=== PATIENT | female | born 1975 | race Caucasian/White ===

== ENCOUNTER 2023-12-16 23:04 | Emergency (ER) | payer BC, SELFPAY ==
[2023-12-16 23:15] VITALS: BP 149/89; PULSE 102; TEMP 37.3; O2SAT 100; BMI 29.5
--- NOTE | 2023-12-16 23:40 | ED_ITS ---
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 States once she starts vomiting it is hard to stop. No diarrhea. only has pain when vomiting. Also has cough product donny of yellow phlegm. Not short of breath. no fever Related Data Allergies Allergy/AdvReac Type Severity Reaction Status Date / Time ciprofloxacin [From Cipro] Allergy Hives Verified 12/16/23 23:19 Review of Systems ROS Status of ROS 10 or more systems reviewed and unremark able except as noted in history and below Exam Constitutional Vital Signs, click to edit/add: Last Vital Signs Temp 99.2 F 12/16/23 23:15 Pulse 90 12/17/23 02:36 Resp 18 12/17/23 02:36 BP 157/84 H 12/17/23 02:36 Pulse Ox 98 12/17/23 02:36 O2 Del Method Room Air 12/17/23 02:36 Common normals: no apparent distress, average body habitus, oriented x3, no limitations, healthy appearing, alert and well nourished [facility] Common normals: normocephalic and head/scalp atraumatic Respiratory Common normals: normal respiratory effort, no retractions, no use of accessory muscles and clear to auscultation bilaterally Cardio Rate: tachycardic GI Common normals: Normal to inspection, nondistended, normoactive bowel sounds present, soft to palpation and non-tender Extremity Common normals: normal to inspection and full ROM Neuro Common normals: oriented x3, CN's II-XII intact bilaterally, moves all extremities and no focal motor deficits Psych Appearance: grossly normal Course Vital Signs Vital signs: Vital Signs Temperature 99.2 F 12/16/23 23:15 Pulse Rate 102 H 12/16/23 23:15 Respiratory Rate 18 12/16/23 23:15 Blood Pressure 149/89 H 12/16/23 23:15 Pulse Oximetry 100 12/16/23 23:15 Oxygen Delivery Method Room Air 12/16/23 23:15 Temperature 99.2 F 12/16/23 23:15 Pulse Rate 90 12/17/23 02:36 Respiratory Rate 18 12/17/23 02:36 Blood Pressure 157/84 H 12/17/23 02:36 Pulse Oximetry 98 12/17/23 02:36 Oxygen Delivery Method Room Air 12/17/23 02:36 MDM - Nausea/Vomiting/Diarrhea MDM Narrative Medical decision making narrative: patient presents with recurrent vomiting. patient hydrated with NS and vomiting controlled. UA infected. Patient given dose of Rocephin and discharged home in improved condition with a prescription of Keflex Lab Data Labs: Lab Results 12/16/23 12/17/23 Range/Units 23:41 00:04 WBC 11.3 H (4.0-11.0) 10^3/uL RBC 5.20 (4.20-5.40) 10^6/uL Hgb 14.3 (12.0-16.0) g/dL Hct 42.9 (36.0-48.0) % MCV 82.5 (81.0-99.0) fL MCH 27.5 (26.7-34.0) pg MCHC 33.3 (29.9-35.2) g/dL RDW 12.8 (11.0-15.0) % Plt Count 260 (150-450) 10^3/uL MPV 10.2 (9.5-13.5) fL Seg Neuts % (Manual) 78.0 Lymphocytes % (Manual) 12.0 L (20.5-60.0) % Monocytes % (Manual) 10.0 (1.7-12.0) % Eosinophils % (Manual) 0.0 L (0.9-7.0) % Basophils % (Manual) 0.0 L (0.2-2.0) % Neutrophils # (Manual) 8.81 H (1.4-6.5) 10^3/uL Lymphocytes # (Manual) 1.35 (1.20-3.80) 10^3/uL Monocytes # (Manual) 1.13 H (0.30-0.80) 10^3/uL Eosinophils # (Manual) 0.00 (0.00-0.70) 10^3/uL Basophils # (Manual) 0.00 (0.00-0.10) 10^3/uL Sodium 136 (136-145) mmol/L Potassium 3.3 L (3.5-5.1) mmol/L Chloride 99 (98-107) mmol/L Carbon Dioxide 23.6 (21.0-32.0) mmol/L Anion Gap 16.7 BUN 19.0 H (7.0-18.0) mg/dL Creatinine 1.05 H (0.55-1.02) mg/dL Est GFR ( Amer) >60 (>=60) Est GFR (Non-Af Amer) 56 L (>=60) BUN/Creatinine Ratio 18.1 Glucose 166 H (74-106) mg/dL Lactate 1.3 (0.4-2.0) mmol/L Calcium 9.5 (8.5-10.1) mg/dL Total Bilirubin 0.7 (0.2-1.0) mg/dL AST 14 L (15-37) U/L ALT 25 (14-59) U/L Alkaline Phosphatase 85 (46-116) U/L Troponin I High Sens 16.9 (4.0-51.3) pg/mL Total Protein 7.7 (6.4-8.2) g/dL Albumin 3.9 (3.4-5.0) g/dL Globulin 3.8 g/dL Albumin/Globulin Ratio 1.0 Lipase 20.0 (16.0-77.0) U/L Urine Color Yellow (YELLOW) Urine Clarity Clear (CLEAR) Urine pH 5.5 (5.0-9.0) Ur Specific [place] 1.025 (1.005-1.025) Urine Protein 30 A (NEG/TRACE) mg/dL Urine Glucose (UA) >=1000 A (NEGATIVE) mg/dL Urine Ketones >=80 A (NEGATIVE) mg/dL Urine Occult Blood Small A (NEGATIVE) Urine Nitrite Negative (NEGATIVE) Urine Bilirubin Small A (NEGATIVE) Urine Urobilinogen 0.2 (0.2-1.0) EU/dL Ur Leukocyte Esterase Negative (NEGATIVE) Urine RBC 5-10 A (0-2) #/HPF Urine WBC 5-10 A (NONE SEEN) #/HPF Ur Squamous Epith Cells Few A (NONE/RARE) #/LPF Ur Transition Epith Cell Rare A (NONE SEEN) #/LPF Urine Crystals Seen A (None Seen) #/HPF Amorphous Sediment Moderate Urine Bacteria Large A (NONE SEEN) #/HPF Urine Casts Seen A (NONE SEEN) #/LPF Coarse Granular Casts Rare Urine Mucus None seen (NONE SEEN) Ur Culture Indicated? Yes Discharge Plan Discharge Stand Alone Forms: Portal Instructions Chief Complaint: Nausea/Vomiting/Diarrhea Clinical Impression: Vomiting, Urinary tract infection Patient Disposition: Home, Self-Care Print Language: Bruneian Instructions: Urinary Tract Infection in Women (DC), Acute Nausea and Vomiting (ED) Additional Instructions: follow up with your family doctor next week Referrals: Physician,Non-Staff, MD [Primary Care Provider] - 1 week Discharge Date/Time: 12/17/23 02:39
--- NOTE | 2023-12-16 23:42 | XR_ITS ---
The [address] [address] Patient Name: NICOLAS AWAD MRN: [id number] date: 1975 Sex: F Assigned Patient Location: ER Current Patient Location: ER Accession/Order Number: [id number] Exam Date: 12/16/2023 23:59 Report Date: 12/17/2023 01:43 At the request of: AUTUMN HINKLE Procedure: XR abdomen min 2V EXAM: XR abdomen min 2V HISTORY: vomiting, nausea, and abdominal pain. Additional history of cough. COMPARISON: Chest x-ray 12/17/2023. Otherwise, no comparison abdominal imaging available at the time of dictation. TECHNIQUE: 2 views of abdominal x-ray, frontal supine and erect images (3 images). FINDINGS: No dilated small bowel silhouette or air-fluid levels. No discrete large free air by radiograph imaging. Moderate amount of stool and gas within the transverse colon and rectosigmoid. No suspicious calcifications or acute bony abnormality. XR/XR abdomen min 2V IMPRESSION: Moderate amount of stool and gas within the colon. Otherwise, nonobstructive small bowel bowel gas pattern by radiograph. Electronically authenticated by: RONIT LAN Date: 12/17/2023 01:43
--- NOTE | 2023-12-16 23:42 | XR_ITS ---
The [address] [address] Patient Name: NICOLAS AWAD MRN: [id number] date: 1975 Sex: F Assigned Patient Location: ER Current Patient Location: ER Accession/Order Number: [id number] Exam Date: 12/16/2023 23:59 Report Date: 12/17/2023 01:30 At the request of: AUTUMN HINKLE Procedure: XR chest 1V EXAM: XR chest 1V HISTORY: cough COMPARISON: No comparison chest imaging available at the time of the dictation. TECHNIQUE: Single frontal view chest x-ray FINDINGS: No lung consolidation, large pleural effusion, pneumothorax, or acute bony abnormality. Cardiac size is unremarkable. XR/XR chest 1V IMPRESSION: No radiographic evidence for acute chest abnormality. Electronically authenticated by: RONIT LAN Date: 12/17/2023 01:30
[2023-12-16 23:48] LABS: Hematocrit 42.9 % (36.0-48.0); Hemoglobin 14.3 g/dL (12.0-16.0); Mean Corpuscular HGB Conc 33.3 g/dL (29.9-35.2); Mean Corpuscular Hemoglobin 27.5 pg (26.7-34.0); Mean Corpuscular Volume 82.5 fL (81.0-99.0); Mean Platelet Volume 10.2 fL (9.5-13.5); Platelet Count 260 10^3/uL (150-450); Red Cell Distribution Width 12.8 % (11.0-15.0); White Blood Count 11.3 10^3/uL (4.0-11.0)
[2023-12-16] MEDS: 0.9 % SODIUM CHLORIDE 1,000 ML 999 ML IV (23:57)
[2023-12-16] MEDS: METOCLOPRAMIDE HCL 10 MG/2 ML VIAL IVP (23:58)
[2023-12-16] MEDS: DIPHENHYDRAMINE HCL 50 MG/ML VIAL IV (23:58)
[2023-12-17 00:10] LABS: Lymphocytes Absolute Manual 1.35 10^3/uL (1.20-3.80); Monocytes Absolute Manual 1.13 10^3/uL (0.30-0.80); Segmented Neut Absolute Manual 8.81 10^3/uL (1.4-6.5)
[2023-12-17 00:11] LABS: Lactate/Lactic Acid 1.3 mmol/L (0.4-2.0)
[2023-12-17 00:17] LABS: Alanine Aminotransferase 25 U/L (14-59); Albumin Level 3.9 g/dL (3.4-5.0); Alkaline Phosphatase 85 U/L (46-116); Anion Gap 16.7; Aspartate Amino Transferase 14 U/L (15-37); BUN Creatinine Ratio 18.1; Bilirubin Total 0.7 mg/dL (0.2-1.0); Calcium 9.5 mg/dL (8.5-10.1); Carbon Dioxide 23.6 mmol/L (21.0-32.0); Chloride 99 mmol/L (98-107); Estimated GFR (African America >60 (>=60); Estimated GFR (Non-African Ame 56 (>=60); Globulin 3.8 g/dL; Glucose 166 mg/dL (74-106); Potassium 3.3 mmol/L (3.5-5.1); Sodium 136 mmol/L (136-145); Total Protein 7.7 g/dL (6.4-8.2); Troponin I High Sensitivity 16.9 pg/mL (4.0-51.3)
[2023-12-17 00:17] LABS: Bilirubin Urine SMALL (NEGATIVE); Blood Urine SMALL (NEGATIVE); Clarity Urine CLEAR (CLEAR); Color Urine YELLOW (YELLOW); Glucose Urine UA >=1000 mg/dL (NEGATIVE); Ketones Urine >=80 mg/dL (NEGATIVE); Leukocyte Esterase Urine NEGATIVE (NEGATIVE); Nitrite Urine NEGATIVE (NEGATIVE); Protein Urine 30 mg/dL (NEG/TRACE); Specific Gravity Urine 1.025 (1.005-1.025); Urobilinogen Urine 0.2 EU/dL (0.2-1.0); pH Urine 5.5 (5.0-9.0)
[2023-12-17 00:20] LABS: Urine Microscopic Indicated YES
[2023-12-17 00:23] LABS: Amorphous Sediment Urine MODERATE; Bacteria Urine LARGE #/HPF (NONE SEEN); Cast Seen? SEEN #/LPF (NONE SEEN); Coarse Granular Casts Urine RARE; Crystals Seen? Seen #/HPF (None Seen); Mucus Urine NONE SEEN (NONE SEEN); Squamous Epithelial Cell Urine FEW #/LPF (NONE/RARE); Transitional Epi Cells Urine RARE #/LPF (NONE SEEN); Urine Culture Indicated YES
[2023-12-17 01:25] VITALS: BP 150/72; PULSE 98; O2SAT 100
[2023-12-17] MEDS: CEFTRIAXONE 1,000 MG in 0.9 % SODIUM CHLORIDE 50 ML 100 MG IV (01:48)
[2023-12-17] MEDS: 0.9 % SODIUM CHLORIDE 1,000 ML 999 ML IV (01:48)
[2023-12-17 02:36] VITALS: BP 157/84; PULSE 90; O2SAT 98
== END 2023-12-17 02:39 | disposition home or self-care (01) ==
PROVIDERS: Emergency Provider Internal Medicine
DX: N39.0 Urinary tract infection, site not specified (principal); R11.10 Vomiting, unspecified; U09.9 Post COVID-19 condition, unspecified; K31.84 Gastroparesis
CPT/HCPCS: 36415; 71045; 74019; 80053; 81001; 83605; 83690; 84484; 85007; 85027; 87086; 87150; 87186; 96361; 96365; 96375; 99284; J0696; J1200; J2765

== ENCOUNTER 2024-06-23 10:24 | Emergency (ER) | payer OTHER, SELFPAY ==
[2024-06-23 10:29] VITALS: BP 142/86; PULSE 88; TEMP 36.7; O2SAT 97; BMI 31.0
--- NOTE | 2024-06-23 10:36 | XR_ITS ---
The [address] [address] Patient Name: NICOLAS AWAD MRN: [id number] date: 1975 Sex: F Assigned Patient Location: ER Current Patient Location: ED.MAIN Accession/Order Number: [id number] Exam Date: 06/23/2024 10:42 Report Date: 06/23/2024 11:48 At the request of: ANDREW SANTA Procedure: XR chest 2V EXAM: CHEST 2 VIEWS HISTORY: cough TECHNIQUE: PA and lateral views chest. COMPARISON: 12/16/2023 FINDINGS: The lungs are clear. There is no focal lung consolidation, pleural effusion or pneumothorax. Pulmonary vasculature is within normal limits. The cardiomediastinal silhouette is normal. XR/XR chest 2V IMPRESSION: 1. Clear lungs without acute cardiopulmonary disease. Recommend followup imaging if symptoms worsen or persist. Electronically authenticated by: TRACIE GIBSON Date: 06/23/2024 11:48
--- NOTE | 2024-06-23 12:38 | ED.GENADUL1 ---
HPI HPI - General Adult General Chief complaint: Upper Respiratory Infection Stated complaint: VOMITING, LIGHTHEADED, COUGH Time Seen by Provider: 06/23/24 12:10 Source: patient Mode of arrival: walk-in History of Present Illness HPI narrative: Patient is an 48-year-old female who is presenting to the ER today with symptoms of bronchitis since Tuesday. Patient has sinus congestion, bronchitis, laryngitis, no nausea, vomiting, diarrhea. Patient has been sick since Tuesday, she has been taking all the uvfp-tfh-quecwbi products appropriately. She is using antihistamines, states that she cannot use Flonase secondary to history of ulcers in her nose from using Flonase. Patient is needing cough medications. Patient using inhalers. Patient is also taken Tylenol ibuprofen. She is also using Mucinex. Patient is eating all the medications that she should be tvlq-sxm-vohvgbv to help with her symptoms. Patient had a near syncopal episode in the shower today and patient still having her symptoms so patient's was concerned and brought patient into the ER for evaluation. Patient states she would not be here without her wanting her to be seen evaluated. Patient is diabetic. Patient is taking insulin injections along with 1 oral tablets. No recent traveling or trauma. No other sick contacts. All systems are negative except as noted/marked. All systems reviewed and otherwise negative. Nurses note and vital signs reviewed and patient is not hypoxic. General: The patient appears well and in no apparent distress. Patient is resting comfortably on cart. Patient is not toxic, lethargic, or listless. In listening apparent Skin: Warm, dry, no pallor noted. There is no rash noted. No petechiae, purpura. Head: Normocephalic, atraumatic Eye: Normal conjunctiva, no drainage, EOMI. PERRL Ears, Nose, Mouth, and Throat: oral mucosa is moist. Nares patent. Mouth without vesicles. Cardiovascular: Regular Rate and Rhythm, no murmur, gallop, rub Respiratory: Patient is in no distress, no accessory muscle use, lungs are clear to auscultation, no wheezing, rales or rhonchi Back: non-tender, no CVA tenderness bilaterally to percussion. No CT LS midline pain GI: no tenderness to palpation, no masses appreciated. No rebound, guarding, or rigidity noted. No distention Musculoskeletal: Patient has full range of motion of all of the extremities, no motor, sensory, or focal neurological deficits Neurological: A&O x4, normal speech Psychiatric: Cooperative Related Data Previous Rx's ?Medication ?Instructions ?Recorded prednisone 50 mg tablet 50 mg PO DAILY 2 days #2 tabs 06/23/24 Allergies Allergy/AdvReac Type Severity Reaction Status Date / Time ciprofloxacin (From Cipro) Allergy Hives Verified 12/16/23 23:19 Opioid HPI Opioid Management Most Recent Opioid Data: No Data to Display PFSH PFSH Social History Little interest or pleasure in doing things: not at all Feeling down, depressed, or hopeless: not at all Exam Constitutional Vital Signs, click to edit/add: Last Vital Signs Temp 98.1 F 06/23/24 10:29 Pulse 88 06/23/24 10:29 Resp 16 06/23/24 10:29 BP 142/86 H 06/23/24 10:29 Pulse Ox 97 06/23/24 10:29 O2 Del Method Room Air 06/23/24 10:29 Course Vital Signs Vital signs: Vital Signs Temperature 98.1 F 06/23/24 10:29 Pulse Rate 88 06/23/24 10:29 Respiratory Rate 16 06/23/24 10:29 Blood Pressure 142/86 H 06/23/24 10:29 Pulse Oximetry 97 06/23/24 10:29 Oxygen Delivery Method Room Air 06/23/24 10:29 Temperature 98.1 F 06/23/24 10:29 Pulse Rate 88 06/23/24 10:29 Respiratory Rate 16 06/23/24 10:29 Blood Pressure 142/86 H 06/23/24 10:29 Pulse Oximetry 97 06/23/24 10:29 Oxygen Delivery Method Room Air 06/23/24 10:29 Medical Decision Making MDM Narrative Medical decision making narrative: Patient is taking all the sflr-xrw-hfxtwjd medications appropriately and aggressively which she should be. Patient is aware that prednisone will cause her sugars to be slightly elevated for the next week or 2. Patient is agreement to take a steroid tablet now, and. Prescribed 2 more steroid tablets only. Patient will continue taking all of her symptomatic treatment. Education on the appropriate use of antibiotics was discussed. Patient chest x-ray is clear, no infiltrate effusion. Education on treating laryngitis and symptoms at home. Patient has been increasing clear liquids at home and cold liquids. No questions at discharge patient will continue symptomatic treatment, follow-up with PCP next week if no improvement for possible antibiotic next or Tuesday if she is continuing to have her symptoms. No antibiotic indicated at this time, patient agrees. Discharge Plan Discharge Chief Complaint: Upper Respiratory Infection Clinical Impression: Bronchitis, Sinusitis, Laryngitis Patient Disposition: Home, Self-Care Time of Disposition Decision: 12:36 Condition: Fair Prescriptions / Home Meds: New prednisone 50 mg tablet 50 mg PO DAILY 2 Days Qty: 2 0RF Rx Instructions: Take your next dose 06/24 Print Language: Jordanian Instructions: Sinusitis (ED), How to Use a Metered-Dose Inhaler (ED), Acute Bronchitis (ED), How Your Lungs Work (ED) Additional Instructions: Take your next dose of prednisone tomorrow. Your sugars will elevate somewhat after taking prednisone as discussed at bedside. Continue taking all your tlwe-jwb-dscszif medications as discussed and continue aggressive treatment at home. InCrease fluids at home, Gatorade, Powerade, or water. Alternate using DayQuil, NyQuil, and Flonase. Add Mucinex as well as needed. Alternate Tylenol and Motrin every 4 hours to help with fever control, body aches or joint pain. Use atww-jnw-gwkphug vitamin C, vitamin D3, and zinc to help fight infection and help with her immune system. Referrals: RAINE CHAN [Primary Care Provider] - 1 week Discharge Date/Time: 06/23/24 12:56
[2024-06-23] MEDS: PREDNISONE 20 MG TABLET 40 MG PO (12:44)
== END 2024-06-23 12:56 | disposition home or self-care (01) ==
PROVIDERS: Emergency Provider Emergency Medicine; PCP Internal Medicine
DX: J40 Bronchitis, not specified as acute or chronic (principal); J04.0 Acute laryngitis; J32.9 Chronic sinusitis, unspecified; E11.9 Type 2 diabetes mellitus without complications; Z79.4 Long term (current) use of insulin; Z79.84 Long term (current) use of oral hypoglycemic drugs
CPT/HCPCS: 71046; 99283; J7512

== ENCOUNTER 2025-02-10 18:04 | Emergency (ER) | payer OTHER, SELFPAY ==
[2025-02-10 18:07] VITALS: BP 183/92; PULSE 102; TEMP 36.7; O2SAT 100; BMI 32.2
--- OUTSIDE RECORDS SUMMARY | 2025-02-10 18:10 | XMS_ITS | Encounter Summary ---
Author Organization [facility] Address [address] [place] [address] Care Team Providers Care Surface Grinding Machine Hand Name Role Phone Yodit Garcia DO Primary Care Provider Yodit Garcia DO Unavailable [phone] Encounter Details Date Type Department Care Team ([facility] st Contact Info) Description 04/12/2023 [facility] [address] [facility] [address] [place] [phone] Yodit Garcia, DO [address] [facility] [address] [place] [address] Social History Tobacco Use Types Packs/Day Years Used Date Smoking Tobacco: Former Cigarettes Q uit: 2019 Smokeless Tobacco: Never Alcohol Use Standard Drinks/Week Comments Yes 0 (1 standard drink = 0.6 oz pure alcohol) 1-2 drinks;monthly or less; caffeine: yes, coffee, soda AUDIT-C Answer Date Recorded Q1: How often do you have a drink containing alc ohol? Monthly or less 12/15/2022 Q2: How many drinks containi ng alcohol do you have on a typical day when you are drinking? 1 or 2 12/15/2022 Q3: How often do you have si x or more drinks on one occasion? Never 12/15/2022 PHQ-2 Answer Date Recorded Patient Health Questionnaire-2 Score 0 12/15/2022 Exercise Vital Sign Answer Date Recorde d On average, how many days pe r week do you engage in moderate to strenuous exercise (like a brisk walk)? 5 days 12/15/2022 On average, how many minutes do you engage in exercise at this level? 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 Not on file Not on file Not on file documented as of this encounter Plan of Treatment Upcoming Encounters Date Type Department Care Team (Late st Contact Info) Description 03/07/2025 3:30 PM EDT Office Visit [facility] [place] [facility] [address] [place] [phone] Yodit Garcia DO [address] [place] [address] documented as of this encounter Visit Diagnoses Not on filedocumented in this encounter Care Teams Surface Grinding Machine Hand Relationship Specialty Start Date End Date Yodit Garcia DO [address] [place] [address] PCP - General Internal Medicine 12/15/22 Yodit Gracia DO [address] [place] [address] PCP - [place] [employer] 05/27/23 documented as of this encounter
--- OUTSIDE RECORDS SUMMARY | 2025-02-10 18:10 | XMS_ITS | Clinical Summary ---
Author Organization [facility] Address [address] [place] [address] Care Team Providers Care Converting Supervisor Name Role Phone Unavailable Primary Care Provider Unavailabl e Allergies Active Allergy Reactions Criticality Noted Date Comments Codeine Hives,Swelling,Shortness of Breath 1 07/15/2008 Medications metformin hcl(GLUCOPHAGE 1,000 MG TAB)Indications :Diabetes (HCC) take one bid - needs to come in w/n the month- last visit 06/04 60 3 09/05/19 10 Active lisinopril(ZEST RIL 5 MG TAB)Indications :Diabetes (HCC) Take one(1) tablet daily. 30 3 09/05/19 10 Active insulin glargine,hum.re c.anlog(LANTUS 100 UNIT/ML SUBQ CARTRIDGE)Indic ations:Diabetes (HCC) take 6 units q pm 1 0 09/05/19 10 Active INSULIN ASPART 100 UNIT/ML SUB-QIndication s:Diabetes (HCC) take 6 units with each meal 1 0 09/05/19 10 Active ALBUTEROL SULFATE HFA 90 MCG/ACTUATION AEROSOL INHALER 2 puffs qid prn 1 3 07/31/19 10 Active fluconazole(DIF LUCAN 150 MG TAB)Indications :Yeast infection involving the vagina and surrounding area take now 1 1 05/15/20 09 Active EPINEPHrine (EPIPEN 2-ANDRY) 0.3 mg/0.3 mL auto-injector Inject 0.3 mL intramuscularly as needed. 1 Each 06/24/20 19 Active Active Problems Problem Noted Date Diagnosed Date Menorrhagia, premenopausal Diabetes Family History Medical History Relation Comments Asthma Brother 1 Arthritis Brother 2 Headache Brother 3 Hypertension Brother 4 Arthritis Father Hypertension Father Osteoporosis Father Cancer Maternal Grandfather Diabetes Maternal Grandfather Stroke Maternal Grandfather Alcohol/Drug Maternal Grandmother Headache Maternal Grandmother Alcohol/Drug Mother Arthritis Mother Headache Mother Heart Mother Alcohol/Drug Paternal Grandmother Thyroid Paternal Grandmother Relation Status Comments Brother 1 Brother 2 Brother 3 Brother 4 Father Maternal Grandfather Maternal Grandmother Mother Paternal Grandfather Paternal Grandmother Social History Tobacco Use Types Packs/Day Years Used Date Smoking Tobacco: Every Day Cigarettes 0.5 10 Alcohol Use Standard Drinks/Week Comments Not Asked 0 (1 standard drink = 0.6 oz pur e alcohol) PHQ-2 Answer Date Recorded PHQ-2 Score 0 06/24/2019 Comments No Sex and Gender Information Value Date Recorded Sex Assigned at Not on file Legal Sex Female 9:51 AM EST Gender Identity Not on file Sexual Orientation Not on file Last Filed Vital Signs Vital Sign Reading Time Taken Comments Blood Pressure 133/78 06/24/2019 7:30 PM EST Pulse 86 06/24/2019 7:30 PM EST Temperature 37 C (98.6 F) 09/04/2009 10:11 AM EST Respiratory Rate 18 06/24/2019 7:30 PM EST Oxygen Saturation 98% 06/24/2019 7:30 PM EST Inhaled Oxygen Concentration - - Weight 89.4 kg (197 lb) 06/24/2019 4:45 PM EST Height 175.3 cm (5' 9 ) 06/24/2019 4:45 PM EST Body Mass Index 29.09 06/24/2019 4:45 PM EST Plan of Treatment Health Maintenance Due Date Last Done Comments Anxiety Screening 09/08/1993 Depression Screening 09/08/1993 HIV Screening 09/08/1993 Hepatitis C Screening 09/08/1993 Hepatitis B Vaccine (1 of 3 - 19+ 3-dose series) 09/08/1994 Cervical Cancer Screening 09/08/1996 Mammogram Screening 2015 DTaP,Tdap,Td Vaccine (2 - Td or Tdap) 09/10/[address] Colonography 09/08/2020 Cologuard (FIT-DNA) 09/08/2020 Colonoscopy 09/08/2020 Colorectal Cancer Screening 09/08/2020 Fecal Occult Blood 09/08/2020 Sigmoidoscopy 09/08/2020 Diabetes Screening 10/17/2021 10/17/2018, 1 07/02/2017, 04/17/2018, Additional history exists Lipid Screening 05/02/2023 05/02/2018, 12/26, 05/15/2009 Influenza Vaccine (#1) 2025 9, 03/16/2018, 04/27/2017, Additional history exists Procedures Procedure Name Priority Date/Time Associated Diagnosis Comments HGBA1C B/O Routine 09/04/2009 4:58 PM EST Diabetes LIPID PROFILE W/CALC LDL 05/15/2009 12:01 AM EST from Last 3 Months or Most Recently Relevant to Health Maintenance Results * (ABNORMAL) HGBA1C B/O (09/04/2009 4:58 PM EST) HGBA1C 10.4(A) 4.0 - 6.0 % Blood specimen (specimen) BLOOD SPECIMEN / Unknown Kenzie Geiger MD BACK OFFICE PROCEDURES Final R esult * (ABNORMAL) LIPID PROFILE W/CALC LDL (05/15/2009 12:01 AM EST) HDL Cholesterol 42 35 - 85 mg/dL [facility] LDL Calculated 158(H) <130 mg/dL [facility] Cholesterol, Total 225(H) <200 mg/dL [facility] Comment:BORDERLINE HIGH CHOL ESTEROL (200-239) Triglyceride 126 <150 mg/dL [facility] 05/15/2009 12:0 1 AM EST Kenzie Geiger MD LABORATORY Final Result [facility] [address] [address] from Last 3 Months or Most Recently Relevant to Health Maintenance Insurance [employer]
--- OUTSIDE RECORDS SUMMARY | 2025-02-10 18:10 | XMS_ITS | Encounter Summary ---
Author Organization [facility] Address [address] [facility] [address] Care Team Providers Care Front Desk Team Member Name Role Phone AshaVanessaYodit Nazario DO Primary Care Provider Encounter Details Date Type Department Care Team ([facility] Contact Info) Description 06/25/2024 Orders Only [facility] [place] [facility] [address] [facility] [address] [place] [phone] Unallocated, Noms Provider, [address] [place] [address] Social History Tobacco Use Types Packs/Day Years [...] Answer Date Recorded Patient Health Questionnaire-2 Score 6 11/30/2023 Exercise Vital Sign Answer Date Recorde d On average, how many days pe r week do you engage in moderate to strenuous exercise (like a brisk walk)? 5 days 12/15/2022 On average, how many minutes do you engage in exercise at this level? 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 Not on file Not on file Not on file documented as of this encounter Plan of Treatment Upcoming Encounters Date Type Department Care Team (Late st Contact Info) Description 03/07/2025 3:30 PM EDT Office Visit [facility] [place] [facility] [address] [place] [phone] Yodit Garcia DO [address] [place] [address] documented as of this encounter Procedures Procedure Name Priority Date/Time Associated Diagnosis Comments XR CHEST 2 VIEWS Routine 06/23/2024 9:10 AM EST documented in this encounter Results * XR chest 2 views (06/23/2024 9:10 AM EST) Anatomical Region Laterality Modality Chest Radiographic Misa ging us [facility] Provider Unallocated IMG XR PROCEDURES F inal Result documented in this encounter Visit Diagnoses Not on filedocumented in this encounter Additional Health Concerns Assessment Noted Time PHQ-9 Depression Total Score: 18 024 8:42 AM EDT documented as of this encounter Care Teams Front Desk Team Member Relationship Specialty Start Date End Date Yodit Garcia DO [address] [place] [address] PCP - General Internal Medicine 12/15/22 documented as of this encounter
--- OUTSIDE RECORDS SUMMARY | 2025-02-10 18:10 | XMS_ITS | Encounter Summary ---
Author Organization [facility] Address [address] [place] [address] Care Team Providers Care Government Documents Librarian Name Role Phone Yodit Garcia DO Primary Care Provider Encounter Details Date Type Department Care Team (Latest Contact Info) Description 10/31/2024 Results Follow-Up [facility] [place] [facility] [address] [facility] [address] [place] [id number] Yodit Garcia DO [address] [facility] [address] [place] [address] CBC, Comprehensive metabolic panel, Hemoglobin A1c, Additional followed-up results: 2 Social History Tobacco Use Types Packs/Day Years [...] Date Job End Date -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 Not on file Not on file Not on file documented as of this encounter Plan of Treatment Upcoming Encounters Date Type Department Care Team (Late st Contact Info) Description 03/07/2025 3:30 PM EDT Office Visit [facility] [address] [place] [address] Yodit Garcia DO [address] [place] [address] documented as of this encounter Visit Diagnoses Not on filedocumented in this encounter Additional Health Concerns Assessment Noted Time PHQ-9 Depression Total Score: 18 024 8:42 AM EDT documented as of this encounter Care Teams Government Documents Librarian Relationship Specialty Start Date End Date Yodit Garcia DO [address] [place] [address] PCP - General Internal Medicine 12/15/22 documented as of this encounter
--- OUTSIDE RECORDS SUMMARY | 2025-02-10 18:10 | XMS_ITS | Patient Health Record ---
Author Organization [facility] es Address [address] [place] [address] Care Team Providers Care Percussion Instrument Repairer Name Role Phone Dr. Andrew Milton Unavailable [phone] Allergies No Known Allergies Reason For Referral No Information Medications Medication SIG (Take, Route, Fr equency, Duration) Notes Start Date End Date Status Lexapro 5 MG 1 tablet Orally Once a day Active Jardiance 10 MG 1 tablet in the morn ing Orally Once a day Active Social History Tobacco Use: Social History Observation Description Date Details (start date - stop date) Former Smoker NA - NA Tobacco Screen: Question Answer Notes Are you a: former smoker Alcohol Screening: Question Answer Notes Did you have a drink contain ing alcohol in the past year? Yes How often did you have a dri nk containing alcohol in the past year? Monthly or less (1 point) How many drinks did you have on a typical day when you were drinking in the past year? 1 or 2 (0 points) Points 1 Interpretation Negative Problems Problem Type SNOMED Code ICD Code Onset Dates Problem Status W/U Status Risk Notes Problem Bilateral carpal tunnel syndrome (4412175092433 9101) Bilateral carpal tunnel syndrome (G56.03) Active confirmed Problem Carpal tunnel syndrome (16825549) Right carpal tunnel syndrome (G56.01) Active confirmed Plan Of Treatment No Information Insurance Providers Payer Name Payer Address Payer Phone Subscriber Number Group Number Insured Name Patient Relationship to Insured Coverage Start Date Coverage End Date [employer] [address] [place] [phone] [id number] NICOLAS AWAD Self - patient is the insured 3 [employer] [address] [place] [address] [id number] NICOLAS AWAD Self - patient is the insured 2
--- OUTSIDE RECORDS SUMMARY | 2025-02-10 18:11 | XMS_ITS | CCD ---
Author Organization [facility] Care Team Providers Care Dinkey Operator Slag Name Role Phone PROVIDER, UNKNOWN Attending Unavailable PROVIDER, UNKNOWN Admitting Unavailable OBDULIA BOOGIE Primary Care Unavailable NO FAMILY, PHYSICIAN Primary Care Provider Unava DO Billy Alfred Emergency Provider MD Luis Alvarez Attending Provider NO FAMILY, PHYSICIAN Primary Care Provider Unava DO Billy Alfred Emergency Provider MD Luis Alvarez Admit Provider DO Juan Mark Other Provider MD Priti Bhandari Attending Provider Obdulia Wong Primary Care Provider NON STAFF Primary Care Provider UnavailNAEEM Burrell Emergency Provider CEE Whitaker Attending Provider [phone] DO Yvonne Ji Emergency Provider [phone] DAISY SOUSA Primary Care Physician [phone] DO Mikey Phillips Emergency Provider [phone] DAISY SOUSA Primary Care Unavailable Ira Melgar Attending Unavailable DAISY SOUSA Primary Care Unavailable Ana SESAY Attending Unavailable DAISY SOUSA Primary Care Unavailable YODIT COREA Referring Unavailab le Ana SESAY Attending Unavailable Ana SESAY Referring Unavailable DAISY SOUSA Primary Care Unavailable Ana SESAY Admitting Unavailable Ana SESAY Consulting Unavailable Ana SESAY Attending Unavailable MD Ana SESAY Consulting Unavailable SALAM, Perez Consulting Unavailable SALAM, Perez Consulting Unavailable SALAM, Perez Consulting Unavailable SALAM, Perez Consulting Unavailable SALAM, Perez Consulting Unavailable SALAM, Perez Consulting Unavailable SALAM, Perez Consulting Unavailable SALAM, Perez Consulting Unavailable SALAM, Perez Consulting Unavailable [facility]if Dempsey [facility] Primary Care Provider DO Yodit Corea Attending Provider NON STAFF Primary Care Provider UnavailNAEEM Burrell Emergency Provider [phone] DO Yodit Corea Primary Care Provider Yodit Corea DO Primary Care Provider Yodit Corea DO Unavailable DO Yodit Corea Attending Provider NO FAMILY, PHYSICIAN Primary Care Provider Unava ilable DO Yvonne Ji Emergency Provider Leif Dempsey [facility]ITAL[facility]dul[facility] Primary Care Provider Yodit Corea DO Primary Care Provider Yong Gagnon MD Emergency Provider Yong Gagnon Jr Admitting Unavailable Yong Gagnon Jr Attending Unavailable Yodit Corea Primary Care Unavailable Yodit Corea Attending Unavailable Yodit Corea Admitting Unavailable Yvonne Ji Admitting Unavailable Yvonne Ji Attending Unavailable NO FAMILY, PHYSICIAN Primary Care Unavailable YODIT COREA Attending Unavailab YODIT Nicholas Referring Unavailab YODIT Nicholas Attending Unavailab YODIT Nicholas Attending Unavailab le Allergies Allergy Classification Reported Allergen(s) Allergy Type Date of Onset Reaction(s) Facility (20 sources) Ciprofloxacin; Translations: [CIPROFLOXACIN] Drug Allergy 11-01-19 14 Rash, Hives [facility] Repository (10 sources) dulaglutide; Translations: [DULAGLUTIDE] Drug Allergy 10-05-19 20 GI intolerance [facility] Repository (10 sources) fluticasone; Translations: [FLUTICASONE] Drug Allergy 04-04-20 18 Other [facility] Repository (10 sources) Hmg-Coa Reductase Inhibitors (Statins); Translations: [STATINS] Propensity to adverse reactions to drug (disorder) 05-26-20 18 Myalgias, Other [facility] Repository (10 sources) Latex; Translations: [LATEX] Propensity to adverse reactions to drug (disorder) 02-14-20 14 Other, Rash, Itching, Difficulty Breathing [facility] Repository (10 sources) Penicillins; Translations: [PENICILLINS] Propensity to adverse reactions to drug (disorder) 08-02-19 19 Hives [facility] Repository (9 sources) Sulfamethoxazole / Trimethoprim; Translations: [sulfamethoxazole-t rimethoprim] Drug Allergy 12-16-19 23 Vomiting (disorder), GI intolerance [facility] (1 source) Ciprofloxacin; Translations: [Cipro] Drug Allergy [facility] Repository (5 sources) Codeine Drug Allergy 05-15-20 09 Hives, Shortness of breath, Swelling [facility] (5 sources) metFORMIN Drug Allergy 08-03-19 24 Diarrhea [facility] (4 sources) empagliflozin Drug Allergy 07-20-19 25 [facility] Medications Current Medications Medication Drug Class(es) Dates Sig (Normalized) Sig (Original) Albuterol (17 sources) beta2-Adrenergic Agonist Start: 06-01-2021 take 180 ug by inhalation once daily Albuterol Active 180 MCG INHALATION Daily June 01, 2021 11:23am Start: 06-01-2021 take 180 ug by inhal ation once daily Albuterol Active 180 MCG INHALATION Daily June 01, 2021 1:00am Start: 09-20-2017 take 2 puff(s) by mo uth every four hours as needed for wheezing albuterol (PROAIR HFA) INHALATION HFA inhaler (VENTOLIN,PROAIR,PROVENTIL) 90mcg Indications: Cough Inhale 2 Puffs by mouth every 4 hours as needed for Wheezing. 8.5 g 3 09/20/2017 Active take 1 puff(s) by in halation every four hours for wheezing albuterol HFA 90 mcg/act inhaler Inhale 1 puff every 4 (four) hours if needed for wheezing Active Albuterol 90 mcg/actuation Aerosol (1 source) Start: 06-01-2021 take 180 ug by inhalation once daily as needed Albuterol 90 mcg/actuation Aerosol Active 180 MCG INHALATION Daily as needed for Shortness Of Breath June 01, 2021 12:00am {1 (Ascorbic Acid 7540 MG / POLYETHYLENE GLYCOL 3350 90186 MG / Potassium Chloride 1200 MG / Sodium Ascorbate 23018 MG / Sodium Chloride 3200 MG Powder for Oral Solution) / 1 (POLYETHYLENE GLYCOL 3350 999152 MG / Potassium Chloride 1000 MG / Sodium Chlori (2 sources) Osmotic Laxative, Vitamin C Start: 05-05-2022 Plenvu oral powder for reconstitution See Instructions, 1 EA, Refill(s) 0, Please see physician instructions prior to colonoscopy., [facility] [id number], 176, cm, 05/05/22 11:43:00 EST, Height/Length Dosing, 86, kg, 05/05/22 11:43:00 EST, Weight Dosing Start Date: 05/05/22 Status: Ordered aspirin 81 mg delayed release oral tablet (4 sources) Platelet Aggregation Inhibitor, Nonsteroidal Anti-inflammator y Drug Start: 01-06-2018 take 1 tablet by mouth once daily aspirin 81 MG enteric coated tablet Indications: Pure hypercholesterolemia Take 1 Tablet by mouth daily. 30 Tablet 5 01/06/2018 Active Blood Glucose Calibration (ACCU-CHEK GITA) SOLN (4 sources) Start: 05-29-2010 Blood Glucose Calibration (ACCU-CHEK GITA) SOLN Indications: DM (diabetes mellitus) (HCC) by In Vitro route. Use to test machine 07 0705/29/2010 Active Blood Sugar Diagnostic (8 sources) Start: 06-08-2021 Blood Sugar Diagnostic Active STRIP June 08, 2021 1:02pm FSBS AC/HS Start: 06-08-2021 Blood Sugar Di agnostic Active STRIP June 08, 2021 1:00am FSBS AC/HS Blood-Glucose Meter (8 sources) Start: 06-08-2021 Blood-Glucose Meter Active KIT June 08, 2021 1:02pm FSBS AC/HS Start: 06-08-2021 Blood-Glucose Meter Active KIT June 08, 2021 1:00am FSBS AC/HS Blood-Glucose Meter Kit (1 source) Start: 06-08-2021 Blood-Glucose Meter Kit Active KIT June 08, 2021 12:00am FSBS AC/HS cefdinir 300 mg oral capsule (8 sources) Cephalosporin Antibacterial Start: 11-23-2021 take 1 capsule by mouth twice daily Cefdinir 300 mg capsule Active 300 MG PO Twice daily 15 04November 22, 2021 11:00pm Continuous Glucose Sensor (FreeStyle Brian 3 Sensor) misc (4 sources) Start: 07-20-2024 Continuous Glucose Sensor (FreeStyle Brian 3 Sensor) misc Indications: Uncontrolled type 2 diabetes mellitus with hyperglycemia (CMS/HCC) 1 Device every 14 (fourteen) days 2 each 07/20/2024 Active diazePAM 5 mg oral tablet (1 source) Benzodiazepine Start: 07-01-2024 take 1 tablet by mouth twice daily as needed Diazepam (Valium) 5 mg tablet Active 5 MG PO Twice daily as needed for vertigo 03 31July 01, 2024 12:00am Take as needed for vertigo not controlled by meclizine dicyclomine hydrochloride 10 mg oral capsule (1 source) Anticholinergic Start: 04-12-2022 End: 04-19-2022 take 1 capsule by mouth four times daily dicyclomine 10 mg Cap 10 mg = 1 cap(s), Oral, QID, X 7 day(s), # 28 cap(s), Refills(s) 0, Pharmacy: [place] [id number] [facility] Start Date: 04/12/22 Stop Date: 04/19/22 Status: Ordered doxycycline hyclate 100 mg oral capsule (16 sources) Tetracycline-class Drug Start: 03-08-2022 take 1 capsule by mouth twice daily Doxycycline Hyclate 100 mg capsule Active 100 MG PO Twice daily 15 04March 07, 2022 11:00pm Start: 05-03-2021 End: 06-01-2021 take 1 capsule by mouth twice daily Doxycycline Hyclate 100 mg capsule Discontinued 100 MG PO Twice daily 15 04May 02, 2021 11:00pm June 01, 2021 10:24am [id number] 0.3 ml EPINEPHrine 1 mg/ml auto-injector (8 sources) alpha-Adrenergic Agonist, beta-Adrenergic Agonist, Catecholamine Start: 07-02-2019 EPINEPHrine (EPIP EN 2-ANDRY) 0.3 MG/0.3ML injection Inject one dose once into thigh as needed for severe allergic reaction 1 Each 2 07/02/2019 Active Start: 04-25-2017 EPINEPHrine (N O) 0.3 MG/0.3ML injection Pharmacist may substitute pharmacological equivalent/generic medication if available to suit insurance coverage. 1 Each 3 04/25/2017 Active escitalopram 10 mg oral tablet (20 sources) Serotonin Reuptake Inhibitor Start: 05-28-2024 End: 05-28-2025 take 1 tablet by mouth once daily escitalopram (Lexapro) 10 MG tablet Indications: Mild major depression (HCC) (CMS/HCC) Take 1 tablet (10 mg) by mouth Daily 90 tablet 3 05/28/2024 05/28/2025 Active Start: 06-01-2021 End: 04-12-2024 take 1 tablet by mouth once daily Escitalopram Oxalate (Lexapro) 10 mg Tablet Active 10 MG PO Daily June 01, 2021 12:00am Start: 10-05-2019 take 1 tablet by pepper th once daily, then take 2 tablets by mouth once daily escitalopram (LEXAPRO) 5 MG tablet Indications: Major depressive disorder, recurrent episode, mild (HCC) , Anxiety Take 1 tab by mouth daily for one week. Then take 2 tabs daily thereafter 60 Tablet 3 10/05/2019 Active famotidine 20 mg oral tablet (2 sources) Histamine-2 Receptor Antagonist Start: 04-17-2018 take 1 tablet by mouth twice daily famotidine (PEPCID) 20 MG tablet Take 1 Tablet by mouth 2 times daily. 60 Tablet 04/17/2018 Active fluconazole 150 mg oral tablet (20 sources) Azole Antifungal Start: 11-23-2021 Fluconazole 1 50 mg tablet Active 150 MG PO Once 1 November 22, 2021 11:00pm as a single dose take it after 1 week on November 30 Start: 06-08-2021 End: 11-21-2021 take 1 tablet by mouth once daily in the morning Fluconazole 100 mg Tablet Discontinued 100 MG PO Every morning June 08, 2021 12:00am November 21, 2021 6:23am Start: 05-03-2021 End: 06-01-2021 take 1 tablet by mouth once daily Fluconazole (Diflucan) 150 mg tablet Discontinued 150 MG PO Daily May 02, 2021 11:00pm June 01, 2021 10:24am administer on day 1 of therapy glimepiride 4 mg oral tablet (2 sources) Sulfonylurea Start: 10-05-2019 take 2 tablets by mouth once daily at breakfast glimepiride (AMARYL) 4 mg tablet Indications: Type 2 diabetes mellitus without complication, without long-term current use of insulin ([facility]) Take 2 Tablets by mouth daily (with breakfast). Replaces glyburide 120 Tablet 2 10/05/2019 Active glucose 4000 mg chewable tablet (17 sources) Start: 11-23-2021 Glucose 4 gram tablet,chewable Active 4 GM PO Q15M as needed for hypoglycemia November 22, 2021 11:00pm until symptoms of low blood sugar are controlled Start: 06-08-2021 Dextrose (Glut ose-15) 40 % Gel Active 0.6 GM PO PRN as needed for Hypoglycemia 37.5 June 08, 2021 12:00am Use if your blood sugar drops below 100 hydrOXYzine hydrochloride 25 mg oral tablet (4 sources) Antihistamine Start: 04-04-2018 take 1 tablet by mouth twice daily as needed hydrOXYzine (ATARAX) 25 MG tablet Indications: Medication side effect , Anxiety Take 1 Tablet by mouth 2 times daily as needed. 30 Tablet 2 04/04/2018 Active 3 ml insulin degludec 200 unt/ml pen injector (2 sources) Insulin Analog Start: 08-03-2023 End: 08-02-2024 insulin degludec (Tresiba FlexTouch) 200 UNIT/ML injection Indications: Uncontrolled type 2 diabetes mellitus with hyperglycemia (CMS/HCC) Inject 30 Units under the skin at bedtime 0 08/03/2023 08/02/2024 Active Start: 04-13-2023 End: 08-03-2023 inject 20 [IU] by subcutaneous injection at bedtime insulin degludec (Tresiba FlexTouch) 200 UNIT/ML injection Indications: Uncontrolled type 2 diabetes mellitus with hyperglycemia (CMS/HCC) Inject 20 Units under the skin at bedtime. 3 mL 12 04/13/2023 08/03/2023 Discontinued (Dose adjustment) 3 ml insulin detemir 100 unt/ml pen injector (17 sources) Insulin Analog Start: 11-23-2021 Insulin Detemi r U-100 (Levemir Flextouch U-100 Insuln) 100 unit/mL (3 mL) Insulin Pen Active 15 UNITS SUBCUT Daily November 22, 2021 11:00pm Start: 06-08-2021 End: 11-21-2021 Insulin Detemir U-100 (Levem ir Flextouch U-100 Insuln) 100 unit/mL (3 mL) Insulin Pen Discontinued 20 UNIT SUBCUT Daily June 08, 2021 12:00am November 21, 2021 6:24am Dispense 5 pens and 5 refills 1.5 ml insulin glargine 300 unt/ml pen injector (4 sources) Insulin Analog Start: 05-30-2024 End: 05-30-2025 inject 30 [IU] by subcutaneous injection at bedtime insulin glargine (Toujeo SoloStar) 300 UNIT/ML injection Indications: Uncontrolled type 2 diabetes mellitus with hyperglycemia (CMS/HCC) Inject 30 Units under the skin at bedtime 10 mL 3 05/30/2024 05/30/2025 Active 3 ml insulin lispro 200 unt/ml pen injector (4 sources) Insulin Analog Start: 07-20-2024 insulin lispro (HumaLOG KWIKPEN) 200 UNIT/ML solution pen-injector pen Indications: Uncontrolled type 2 diabetes mellitus with hyperglycemia (CMS/HCC) Check glucose prior to meals. Administer dose as directed by sliding scale:150-200- 2 units; 201-250- 4 units: 251-300- 6 units; 301-350- 8 units; 351-400- 10 units; 401-450- 12 units 3 mL 5 07/20/2024 Active isopropyl alcohol 0.7 ml/ml medicated pad (9 sources) Start: 06-08-2021 Alcohol Swabs Pads, Medicated Active 1 PAD TOPICAL Before meals and at bedtime June 08, 2021 12:00am FSBS AC/HS losartan potassium 50 mg oral tablet (2 sources) Angiotensin 2 Receptor Calvin Start: 11-01-2024 take 1 tablet by mouth once daily losartan (Cozaar) 50 MG tablet Indications: Hypertension, essential (CMS/HCC) Take 1 tablet (50 mg) by mouth Daily 30 tablet 3 11/01/2024 Active meclizine hydrochloride 25 mg oral tablet (1 source) Antiemetic Start: 07-01-2024 take 1 tablet by mouth three times daily as needed Meclizine 25 mg tablet Active 25 MG PO Three times daily as needed for Vertigo July 01, 2024 12:00am metFORMIN hydrochloride 1000 mg oral tablet (12 sources) Biguanide Start: 10-05-2019 End: 08-03-2023 take 1 tablet by mouth twice daily Metformin 1,000 mg Tablet Active 1000 MG PO Twice daily June 01, 2021 12:00am Naproxen (4 sources) Nonsteroidal Anti-inflammatory Drug take 1 tablet by mouth once daily Naproxen Sodium (ALEVE PO) Take 1 tablet by mouth Daily Pt is taking the dual action formula that has tylenol in it Active omeprazole 40 mg delayed release oral capsule (20 sources) Proton Pump Inhibitor Start: 05-05-2022 take 1 capsule by mouth once daily omeprazole 40 mg Cap-DR 40 mg = 1 cap(s), Oral, Daily, # 30 cap(s), Refills(s) 2, Pharmacy: [place] [id number] [facility], 176, cm, 05/05/22 11:43:00 EST, Height/Length Dosing, 86, kg, 05/05/22 11:43:00 EST, Weight Dosing Start Date: 05/05/22 Status: Ordered Start: 06-02-2021 End: 11-21-2021 take 1 capsule by mouth once daily Omeprazole 20 mg Capsule,Delayed Release(Dr/Ec) Discontinued 20 MG PO Daily June 08, 2021 12:00am November 21, 2021 6:24am ondansetron 4 mg disintegrating oral tablet (20 sources) Serotonin-3 Receptor Antagonist Start: 03-15-2023 End: 11-01-2024 take 1 tablet by mouth every eight hours as needed for nausea and vomiting and nausea and vomiting and nausea and vomiting ondansetron ODT (Zofran-ODT) 4 MG disintegrating tablet Indications: Nausea , Vomiting, unspecified vomiting type, unspecified whether nausea present Take 1 tablet (4 mg) by mouth every 8 (eight) hours if needed for nausea or vomiting 30 tablet 1 11/01/2024 Active Start: 06-02-2021 Ondansetron 4 mg tablet,disintegrating Active 4 MG PO every 6 to 8 hours as needed for Nausea April 11, 2022 11:00pm Start: 08-02-2018 take 1 tablet by pepper th every eight hours as needed for nausea ondansetron (ZOFRAN) 4 MG tablet Take 1 Tablet by mouth every 8 hours as needed for Nausea. 20 Tablet 1 08/02/2018 Active promethazine hydrochloride 12.5 mg rectal suppository (15 sources) Phenothiazine Start: 05-05-2022 promethazine 1 2.5 mg Supp Refills(s) 0 Start Date: 05/05/22 Status: Ordered Start: 04-15-2022 take 1 tablet by pepper th three times daily as needed for nausea and vomiting Promethazine 25 mg tablet Active 25 MG PO Three times daily as needed for nausea and vomiting April 14, 2022 11:00pm Start: 04-15-2022 Promethazine 2 5 mg suppository Active 25 MG VT Q6H as needed for nausea and vomiting April 14, 2022 11:00pm Start: 12-20-2017 End: 04-19-2022 take 1 tablet by mouth every six hours as needed for nausea promethazine (PHENERGAN) 25 MG tablet Take 1 Tablet by mouth every 6 hours as needed for Nausea. 16 Tablet 12/20/2017 Active sennosides, custodial 8.6 mg oral tablet (2 sources) Start: 02-02-2017 take 1 tablet by mouth at bedtime senna (SENOKOT) 8.6 MG tablet Take 1 Tablet by mouth at bedtime. 30 Tablet 02/02/2017 Active SITagliptin 100 mg oral tablet (2 sources) Dipeptidyl Peptidase 4 Inhibitor Start: 10-05-2019 take 1 tablet by mouth once daily sitaGLIPtin (JANUVIA) 100 mg tablet Indications: Type 2 diabetes mellitus without complication, without long-term current use of insulin (HCC) Take 1 Tablet by mouth daily. Replaces 50mg tabs. 340B 60 Tablet 2 10/05/2019 Active Spacer/Aero-Holding Chambers (E-Z SPACER DEVICE) (2 sources) Start: 11-28-2014 Spacer/Aero-Holdin g Chambers (E-Z SPACER DEVICE) Indications: Sore throat , Acute recurrent maxillary sinusitis , Chest congestion Use as insctured 1 Each 0 11/28/2014 Active Tirzepatide (Mounjaro) 2.5 MG/0.5ML solution auto-injector (2 sources) Start: 11-01-2024 inject 2.5 mg by subcutaneous injection every week Tirzepatide (Mounjaro) 2.5 MG/0.5ML solution auto-injector Indications: Uncontrolled type 2 diabetes mellitus with hyperglycemia (CMS/HCC) Inject 2.5 mg under the skin 1 (one) time per week 2 mL 11/01/2024 Active Tofranci Otot SoloStar (2 sources) Start: 05-05-2022 Toujeo Max SoloStar Refills(s) 0 Start Date: 05/05/22 Status: Ordered traMADol hydrochloride 50 mg oral tablet (8 sources) Opioid Agonist Start: 11-22-2021 take 0.5-1 tablets by mouth every six hours as needed for pain Tramadol (Ultram) 50 mg tablet Active 50 MG PO Q6H as needed for pain 23 01November 21, 2021 11:00pm 1/2 - 1 tab po q 6 hours prn pain Completed/Discontinued Medications Medication Drug Class(es) Dates Sig (Normalized) Sig (Original) ascorbic acid 500 mg oral tablet (18 sources) Vitamin C Start: 06-08-2021 End: 11-21-2021 take 1 tablet by mouth once daily Ascorbic Acid (Vitamin C) (Vitamin C) 500 mg Tablet Discontinued 500 MG PO Daily 07 01June 08, 2021 8:39am November 21, 2021 6:22am Start: 06-02-2021 End: 06-08-2021 take 1 tablet by mouth twice daily Ascorbic Acid (Vitamin C) (Vitamin C) 500 mg Tablet Discontinued 500 MG PO Twice daily 07 01June 02, 2021 12:00am June 08, 2021 8:41am empagliflozin 10 mg oral tablet (3 sources) Sodium-Glucose Cotransporter 2 Inhibitor Start: 08-03-2023 End: 08-02-2024 take 1 tablet by mouth once daily empagliflozin (Jardiance) 10 MG Indications: Uncontrolled type 2 diabetes mellitus with hyperglycemia (CMS/HCC) Take 1 tablet (10 mg) by mouth Daily 30 tablet 11 11/30/2023 07/20/2024 Discontinued (Side effects) ergocalciferol 1.25 mg oral capsule (9 sources) Provitamin D2 Compound Start: 06-02-2021 End: 05-28-2022 take 1 capsule by mouth once Ergocalciferol (Vitamin D2) 1,250 mcg (50,000 unit) Capsule Discontinued 1250 MCG PO Mo@0900 7 49 June 02, 2021 12:00am November 21, 2021 6:23am glipiZIDE 5 mg oral tablet (9 sources) Sulfonylurea Start: 06-02-2021 End: 06-08-2021 take 1 tablet by mouth twice daily Glipizide 5 mg tablet Discontinued 5 MG PO Twice daily 60 June 02, 2021 12:00am June 08, 2021 8:41am 12 hr guaiFENesin 600 mg extended release oral tablet (9 sources) Start: 06-08-2021 End: 11-21-2021 take 1 tablet by mouth twice daily as needed for cough, then take 1 tablet by mouth every twelve hours as needed for cough Guaifenesin (Mucinex) 600 mg Tablet Extended Release 12hr Discontinued 600 MG PO Twice daily as needed for cough June 08, 2021 12:00am November 21, 2021 6:24am hydroCHLOROthiazide 12.5 mg / lisinopril 20 mg oral tablet (9 sources) Thiazide Diuretic, Angiotensin Converting Enzyme Inhibitor Start: 06-08-2021 End: 11-21-2021 take 1 tablet by mouth once daily Lisinopril-Hydroch lorothiazide 20-12.5 mg tablet Discontinued 1 TAB PO Daily June 08, 2021 12:00am November 21, 2021 6:24am ibuprofen 800 mg oral tablet (7 sources) Nonsteroidal Anti-inflammatory Drug Start: 06-07-2022 End: 07-20-2024 take 1 tablet by mouth three times daily as needed ibuprofen 800 MG tablet Take 800 mg by mouth 3 (three) times a day as needed. 06/07/2022 07/20/2024 Discontinued Start: 01-06-2018 take 1 tablet by pepper th once daily as needed ibuprofen (MOTRIN) 800 MG tablet Take 1 Tablet by mouth daily as needed. WITH FOOD; USE WITH CAUTION 01/06/2018 Active Insulin Aspart U-100 (Novolo g Flexpen U-100 Insulin) 100 unit/mL (3 mL) Insulin Pen (18 sources) Start: 06-08-2021 End: 11-21-2021 Insulin Aspart U-100 (Novolo g Flexpen U-100 Insulin) 100 unit/mL (3 mL) Insulin Pen Discontinued 0 UNITS SUBCUT 3X/Day with meals and bedtime 0 June 08, 2021 9:33am November 21, 2021 7:24am Start: 06-08-2021 End: 11-21-2021 inject 5 [IU] by subcutaneous injection once before mealtime Insulin Aspart U-100 (Novolog Flexpen U-100 Insulin) 100 unit/mL (3 mL) Insulin Pen Discontinued 5 UNIT SUBCUT 3x/Day before meals June 08, 2021 9:33am November 21, 2021 7:24am Dispense 5 pens and 5 refills Start: 06-08-2021 End: 11-21-2021 Insulin Aspart U-100 (Novolo g Flexpen U-100 Insulin) 100 unit/mL (3 mL) Insulin Pen Discontinued 0 UNITS SUBCUT 3X/Day with meals and bedtime 0 June 08, 2021 12:00am November 21, 2021 6:24am Start: 06-08-2021 End: 11-21-2021 inject 5 [IU] by subcutaneous injection once before mealtime Insulin Aspart U-100 (Novolog Flexpen U-100 Insulin) 100 unit/mL (3 mL) Insulin Pen Discontinued 5 UNIT SUBCUT 3x/Day before meals June 08, 2021 12:00am November 21, 2021 6:24am Dispense 5 pens and 5 refills Start: 06-08-2021 End: 11-21-2021 Insulin Aspart U-100 (Novolo g Flexpen U-100 Insulin) 100 unit/mL (3 mL) Insulin Pen Discontinued 0 UNITS SUBCUT 3X/Day with meals and bedtime 0 June 08, 2021 1:00am November 21, 2021 7:24am Start: 06-08-2021 End: 11-21-2021 inject 5 [IU] by subcutaneous injection once before mealtime Insulin Aspart U-100 (Novolog Flexpen U-100 Insulin) 100 unit/mL (3 mL) Insulin Pen Discontinued 5 UNIT SUBCUT 3x/Day before meals June 08, 2021 1:00am November 21, 2021 7:24am Dispense 5 pens and 5 refills potassium chloride 20 meq extended release oral tablet (9 sources) Start: 06-08-2021 End: 11-21-2021 take 1 tablet by mouth once daily Potassium Chloride 20 mEq tablet extended release Discontinued 20 MEQ PO Daily June 08, 2021 12:00am November 21, 2021 6:23am sulfamethoxazole 800 mg / trimethoprim 160 mg oral tablet (9 sources) Dihydrofolate Reductase Inhibitor Antibacterial, Sulfonamide Antimicrobial Start: 06-08-2021 End: 11-21-2021 take 1 tablet by mouth twice daily Sulfamethoxazole- Trimethoprim 800-160 mg Tablet Discontinued 1 TAB PO Twice daily June 08, 2021 12:00am November 21, 2021 6:23am zinc gluconate 50 mg oral tablet (9 sources) Start: 06-02-2021 End: 06-08-2021 take 1 tablet by mouth once daily Zinc Gluconate 50 mg Tablet Discontinued 50 MG PO Daily 12 31June 02, 2021 12:00am June 08, 2021 8:41am Problems Active Problems Problem Classification Problem Date Documented Da te Episodic/Chronic Anal and rectal conditions (11 sources) Perirectal cellulitis; Translations: [Rectal abscess] 11-21-2021 Episodic Comment on above: Problem List clean-u p per request of Phys. 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 EHR Cmte Diabetes mellitus without complication (17 sources) Type 2 diabetes mellitus in nonobese; Translations: [Type 2 diabetes mellitus without complications] Onset: 0 06-01-2021 Chronic Comment on above: Problem List clean-u p per request of Phys. EHR Cmte Diabetes mellitus without complication (10 sources) Hyperglycemia; Translations: [Hyperglycemia, unspecified] 11-21-2021 Episodic Comment on above: Problem List clean-u p per request of Phys. EHR Cmte Disorders of lipid metabolism (15 sources) Pure hypercholesterolemia; Translations: [Pure hypercholesterolemia, unspecified] Onset: 0 06-12-2010 Chronic Disorders of teeth and jaw (5 sources) Dental caries; Translations: [Dental caries, unspecified] 04-12-2023 Episodic E Codes: Natural/environment (9 sources) Tick bite; Translations: [Bitten or stung by nonvenomous insect and other nonvenomous arthropods, initial encounter] 05-06-2021 Episodic Comment on above: Problem List clean-u p per request of Phys. EHR Cmte Esophageal disorders (7 sources) Gastroesophageal reflux disease; Translations: [Gastro-esophageal reflux disease without esophagitis] Onset: 3 04-12-2023 Chronic Essential hypertension (18 sources) Hypertensive disorder; Translations: [Essential (primary) hypertension] Onset: 8 06-05-2021 Chronic Comment on above: Problem List clean-u p per request of Phys. EHR Cmte Gastrointestinal hemorrhage (4 sources) Hematemesis; Translations: [Hematemesis] Onset: 2 Episodic Mood disorders (18 sources) Depressive disorder; Translations: [Depression] Onset: 5 08-13-2021 Chronic Nausea and vomiting (20 sources) Nausea and vomiting; Translations: [Nausea with vomiting, unspecified] Onset: 2 06-06-2021 Episodic Comment on above: Problem List clean-u p per request of Phys. EHR Cmte Open wounds of extremities (11 sources) Open wound of right foot; Translations: [Unspecified open wound, right foot, initial encounter] 03-08-2022 Episodic Comment on above: Problem List clean-u p per request of Phys. EHR Cmte Other aftercare (1 source) Patient encounter status; Translations: [Encounter for therapeutic drug level monitoring] 08-03-2023 Episodic Other circulatory disease (5 sources) Elevated blood-pressure reading without diagnosis of hypertension; Translations: [Elevated blood-pressure reading, without diagnosis of hypertension] Onset: 0 09-15-2009 Episodic Other connective tissue disease (9 sources) Necrotizing fasciitis; Translations: [Necrotizing fasciitis] 11-21-2021 Episodic Comment on above: Problem List clean-u p per request of Phys. EHR Cmte Other connective tissue disease (2 sources) Necrotizing fasciitis; Translations: [Necrotizing fasciitis] Episodic Other diseases of bladder and urethra (4 sources) Mass of urinary bladder; Translations: [Other specified disorders of bladder] Onset: 7 02-05-2017 Chronic Other injuries and conditions due to external causes (9 sources) Traumatic subcutaneous emphysema; Translations: [Traumatic subcutaneous emphysema, initial encounter] 11-21-2021 Episodic Comment on above: Problem List clean-u p per request of Phys. EHR Cmte Other injuries and conditions due to external causes (2 sources) Traumatic subcutaneous emphysema, initial encounter; Translations: [Traumatic subcutaneous emphysema] Episodic Other nervous system disorders (6 sources) Drug-induced myopathy; Translations: [Drug-induced myopathy] Onset: 4 08-03-2023 Episodic Other nervous system disorders (4 sources) Drug-induced myopathy; Translations: [Toxic myopathy] Onset: 4 11-05-2024 Episodic Other nutritional; endocrine; and metabolic disorders (9 sources) Hypophosphatemia; Translations: [Other disorders of phosphorus metabolism] 06-06-2021 Chronic Comment on above: Problem List clean-u p per request of Phys. EHR Cmte Other nutritional; endocrine; and metabolic disorders (9 sources) Hypomagnesemia; Translations: [Hypomagnesemia] 06-06-2021 Chronic Comment on above: Problem List clean-u p per request of Phys. EHR Cmte Other upper respiratory disease (4 sources) Allergic rhinitis; Translations: [Allergic rhinitis, unspecified] Onset: 4 03-20-2014 Chronic Other upper respiratory disease (9 sources) Cellulitis of face; Translations: [Abscess, furuncle and carbuncle of nose] 05-03-2021 Episodic Comment on above: Problem List clean-u p per request of Phys. EHR Cmte Other upper respiratory infections (9 sources) Sinusitis; Translations: [Chronic sinusitis, unspecified] 05-03-2021 Chronic Comment on above: Problem List clean-u p per request of Phys. EHR Cmte Skin and subcutaneous tissue infections (11 sources) Abscess of perineum; Translations: [Cutaneous abscess of perineum] 11-21-2021 Episodic Comment on above: Problem List clean-u p per request of Phys. EHR Cmte Syncope (7 sources) Syncope; Translations: [Syncope and collapse] Onset: 2 04-12-2022 Episodic Comment on above: Problem List clean-u p per request of Phys. EHR Cmte Urinary tract infections (17 sources) Urinary tract infectious disease; Translations: [Urinary tract infection, site not specified] Onset: 06-06-2021 Episodic Comment on above: Problem List clean-u p per request of Phys. EHR Cmte Viral infection (20 sources) Disease caused by 2019-nCoV; Translations: [COVID-19] 06-01-2021 Episodic Comment on above: Problem List clean-u p per request of Phys. EHR Cmte Past or Other Problems Problem Classification Problem Date Documented Da te Episodic/Chronic Abdominal pain (4 sources) Abdominal pain; Translations: [Unspecified abdominal pain] Onset: 05-17-2014 05-24-2014 Episodic Fever of unknown origin (4 sources) Fever; Translations: [Fever, unspecified] Onset: 02-01-2017 02-05-2017 Episodic Fluid and electrolyte disorders (20 sources) Hypokalemia; Translations: [Hypokalemia] Onset: 12-15-2022 06-06-2021 Episodic Comment on above: Problem List clean-u p per request of Phys. EHR Cmte Headache; including migraine (4 sources) Headache; Translations: [Headache] Onset: 02-01-2017 02-01-2017 Episodic Mood disorders (4 sources) Mood disorders Onset: 11-30-2023 11-30-2023 Other aftercare (1 source) Encounter for therapeutic drug level monitoring; Translations: [Encounter for therapeutic drug level monitoring] Onset: 11-25-2023 Episodic Other female genital disorders (4 sources) Torsion of ovary; Translations: [Torsion of ovary and ovarian pedicle, unspecified side] Onset: 05-24-2014 05-24-2014 Episodic Ovarian cyst (4 sources) Cyst of left ovary; Translations: [Unspecified ovarian cyst, left side] Onset: 05-17-2014 05-24-2014 Episodic Residual codes; unclassified (4 sources) Harmful pattern of use of nicotine; Translations: [Tobacco use] Onset: 02-19-2014 02-19-2014 Episodic Results Test Name Value Interpretation Reference Range Facility Laboratory - Hematology and Cell countson 07-20-2024 HbA1c (Bld) [Mass fraction] 14.3 % [facility] No Panel Informationon 07-20 [facility] Alanine aminotransferase [En zymatic activity/volume] in Serum or PlasmaOrdered By: Yong Gagnon on 07-01-2024 ALT [Catalytic activity/Vol] Alanine aminotransferase [Enzymatic activity/volume] in Serum or Plasma 7-52 [facility] Albumin [Mass/volume] in Ser um or Plasma by Bromocresol green (BCG) dye binding methoOrdered By: Yong Gagnon on 07-01-2024 Albumin BCG dye [Mass/Vol] Albumin [Mass/volume] in Serum or Plasma by Bromocresol green (BCG) dye binding metho 3.5-5.7 [facility] Alkaline phosphatase [Enzyma tic activity/volume] in Serum or PlasmaOrdered By: Yong Gagnon on 07-01-2024 ALP [Catalytic activity/Vol] Alkaline phosphatase [Enzymatic activity/volume] in Serum or Plasma 34-104 [facility] Appearance of UrineOrdered B y: Yong Gagnon on 07-01-2024 Appearance (U) Urine appearance Clear [facility] Aspartate aminotransferase [ Enzymatic activity/volume] in Serum or PlasmaOrdered By: Yong Gagnon on 07-01-2024 AST [Catalytic activity/Vol] Aspartate aminotransferase [Enzymatic activity/volume] in Serum or Plasma 13-39 [facility] Bacteria [Presence] in Urine by AutomatedOrdered By: Yong Gagnon on 07-01-2024 Bacteria Auto Ql (U) Bacteria [Presence] in Urine by Automated High None Seen [facility] Basophils Auto (Bld) [#/Vol] Ordered By: Yong Gagnon on 07-01-2024 Basophils (Bld) [#/Vol] Automated basophil count 0.0-0.2 [facility] Basophils/100 WBC Auto (Bld) Ordered By: Yong Gagnon on 07-01-2024 Basophils/100 WBC (Bld) Automated basophil % . [facility] Bilirubin Test strip Ql (U)O rdered By: Yong Gagnon on 07-01-2024 Bilirubin Ql (U) Bilirubin.total [Pre sence] in Urine by Test strip Negative [facility] Bilirubin.total [Mass/volume ] in Serum or PlasmaOrdered By: Yong Gagnon on 07-01-2024 Bilirubin [Mass/Vol] Bilirubin.total [Mass/volume] in Serum or Plasma 0.3-1.0 [facility] Calcium [Mass/volume] in Ser um or PlasmaOrdered By: Yong Gagnon on 07-01-2024 Calcium [Mass/Vol] Calcium [Mass/volume ] in Serum or Plasma 8.6-10.3 [facility] Carbon dioxide, total [Moles /volume] in Serum or PlasmaOrdered By: Yong Gagnon on 07-01-2024 CO2 [Moles/Vol] Carbon dioxide, tota l [Moles/volume] in Serum or Plasma 21.0-31.0 [facility] Chloride [Moles/volume] in S dinora or PlasmaOrdered By: Yong Gagnon on 07-01-2024 Chloride [Moles/Vol] Chloride [Moles/vol ume] in Serum or Plasma Low 98-107 [facility] Color Auto (U)Ordered By: César Gagnon on 07-01-2024 Color (U) Color of Urine by Auto Yellow [facility] Auto Di ffon 07-01-2024 Basophils (Bld) [#/Vol] 0.1 10*3/uL Normal 0.0-0.2 [facility] Comment on above: Result Comment: PERF ORMED BY: [place] [address] PATHOLOGIST [employer]EL[employer] RICARDO LUGO M.D. Performed By: #### C BC, CMP, CK, HS TROP #### [facility] [address] [place] [address] [place] Basophils/100 WBC (Bld) 0.7 % Normal . [facility] Comment on above: Performed By: #### C BC, CMP, CK, HS TROP #### [facility] [address] [place] [address] [place] Eosinophils (Bld) [#/Vol] 0.2 10*3/uL Normal 0.0-0.45 [facility] Comment on above: Performed By: #### C BC, CMP, CK, HS TROP #### [address] Eosinophils/100 WBC (Bld) 1.9 % Normal . [facility] Comment on above: Performed By: #### C BC, CMP, CK, HS TROP #### [address] Erythrocyte distribution width (RBC) [Ratio] 13.2 % Normal 11.9-15.3 [facility] Comment on above: Performed By: #### C BC, CMP, CK, HS TROP #### [address] Hematocrit (Bld) [Volume fraction] 40.0 % Normal 34.0-46.4 [facility] Comment on above: Performed By: #### C BC, CMP, CK, HS TROP #### [address] Hemoglobin (Bld) [Mass/Vol] 13.2 g/dL Normal 11.8-15.4 [facility] Comment on above: Performed By: #### C BC, CMP, CK, HS TROP #### [address] Lymphocytes (Bld) [#/Vol] 1.8 10*3/uL Normal 1.00-4.8 [facility] Comment on above: Performed By: #### C BC, CMP, CK, HS TROP #### [place] [address] [place] Lymphocytes/100 WBC (Bld) 20.4 % Normal . [facility] Comment on above: Performed By: #### C BC, CMP, CK, HS TROP #### [address] MCH (RBC) [Entitic mass] 27.6 pg Normal 24.7-34.3 [facility] Comment on above: Performed By: #### C BC, CMP, CK, HS TROP #### [address] MCV (RBC) [Entitic vol] 83.4 fL Normal 80-100 [facility] [employer] Comment on above: Performed By: #### C BC, CMP, CK, HS TROP #### [address] Mean Corpuscular HGB Conc 33.1 g/dL Normal 32.0-35.0 [facility] Comment on above: Performed By: #### C BC, CMP, CK, HS TROP #### [address] Monocytes (Bld) [#/Vol] 0.8 10*3/uL Normal 0.0-0.8 [facility] Comment on above: Performed By: #### C BC, CMP, CK, HS TROP #### [address] Monocytes/100 WBC (Bld) 16.38 % Normal 0.00-20.00 [facility] [employer] [facility] Comment on above: Performed By: #### C BC, CMP, CK, HS TROP #### [address] Monocytes/100 WBC (Bld) 9.1 % Normal . [facility] [employer] Comment on above: Performed By: #### C BC, CMP, CK, HS TROP #### [place] [address] [place] Neutrophils (Bld) [#/Vol] 6.1 10*3/uL Normal 1.8-7.7 [facility] [employer] Comment on above: Performed By: #### C BC, CMP, CK, HS TROP #### [place] [address] [place] Neutrophils/100 WBC (Bld) 67.9 % Normal . [facility] Comment on above: Performed By: #### C BC, CMP, CK, HS TROP #### [place] [address] [place] NRBC% 0.1 /100{WBC} Normal 0-0.5 [facility] Comment on above: Performed By: #### C BC, CMP, CK, HS TROP #### [address] Platelet mean volume (Bld) [Entitic vol] 8.2 fL Normal 6.3-10.7 [facility] Comment on above: Performed By: #### C BC, CMP, CK, HS TROP #### [address] Platelets (Bld) [#/Vol] 372 10*3/uL Normal 150-450 [facility] Comment on above: Performed By: #### C BC, CMP, CK, HS TROP #### [address] RBC (Bld) [#/Vol] 4.80 10*6/uL Normal 3.60-5.00 [facility] Comment on above: Performed By: #### C BC, CMP, CK, HS TROP #### [address] WBC (Bld) [#/Vol] 8.9 10*3/uL Normal 3.8-11.6 [facility] Comment on above: Performed By: #### C BC, CMP, CK, HS TROP #### [address] Comprehensive Metabolic Pane mala 07-01-2024 Albumin [Mass/Vol] 3.9 g/dL Normal 3.5-5.7 [facility] Comment on above: Performed By: #### C BC, CMP, CK, HS TROP #### [address] Albumin/Globulin [Mass ratio] 1.3 {ratio} Normal [facility] Comment on above: Performed By: #### C BC, CMP, CK, HS TROP #### [address] ALP [Catalytic activity/Vol] 86 U/L Normal 34-104 [facility] Comment on above: Performed By: #### C BC, CMP, CK, HS TROP #### [address] ALT [Catalytic activity/Vol] 18 U/L Normal 7-52 [facility] Comment on above: Performed By: #### C BC, CMP, CK, HS TROP #### [address] Anion gap [Moles/Vol] 12.7 mmol/L Normal 6.0-15.0 [facility] Comment on above: Performed By: #### C BC, CMP, CK, HS TROP #### [address] AST [Catalytic activity/Vol] 16 U/L Normal 13-39 [facility] Comment on above: Performed By: #### C BC, CMP, CK, HS TROP #### [address] Bilirubin [Mass/Vol] 0.4 mg/dL Normal 0.3-1.0 [facility] Comment on above: Performed By: #### C BC, CMP, CK, HS TROP #### [address] Calcium [Mass/Vol] 8.8 mg/dL Normal 8.6-10.3 [facility] Comment on above: Performed By: #### C BC, CMP, CK, HS TROP #### [place] [address] [place] Chloride [Moles/Vol] 96 mmol/L Low 98-107 [facility] Comment on above: Performed By: #### C BC, CMP, CK, HS TROP #### [place] [address] [place] CO2 [Moles/Vol] 25.2 mmol/L Normal 21.0-31.0 [facility] Comment on above: Performed By: #### C BC, CMP, CK, HS TROP #### [address] Creatinine [Mass/Vol] 0.93 mg/dL Normal 0.60-1.20 [facility] Comment on above: Performed By: #### C BC, CMP, CK, HS TROP #### [address] Creatinine Clr Calc Pharmacy 92.73 Normal [facility] Comment on above: Result Comment: PERF ORMED BY: [place] [address] PATHOLOGIST [employer]ELOPER RICARDO LUGO M.D. Performed By: #### C BC, CMP, CK, HS TROP #### [address] GFR/1.73 sq M.predicted MDRD (S/P/Bld) [Vol rate/Area] mL/min/{1.73_m2} Normal [facility] Comment on above: Performed By: #### C BC, CMP, CK, HS TROP #### [address] Globulin (S) [Mass/Vol] 2.9 g/dL Normal [facility] Comment on above: Performed By: #### C BC, CMP, CK, HS TROP #### [address] Glucose [Mass/Vol] 549 mg/dL Off scale high 70-100 [facility] Comment on above: Result Comment: Crit ical Result Called to and read back by: MAURICIO MUÑIZ at: 07/01/2024 02:49:21 by:[id number] Random Glucose Reference Range is dependent on time and content of last meal. Glucose of more than 200 mg/dL in a nonstressed, ambulatory subject supports the diagnosis of Diabetes Mellitus. ADA recommended reference range Performed By: #### C BC, CMP, CK, HS TROP #### [address] Potassium [Moles/Vol] 3.9 mmol/L Normal 3.5-5.1 [facility] Comment on above: Performed By: #### C BC, CMP, CK, HS TROP #### [address] [place] [address] [place] Protein [Mass/Vol] 6.8 g/dL Normal 6.4-8.9 [facility] Comment on above: Performed By: #### C BC, CMP, CK, HS TROP #### [facility] [address] [place] [address] [place] Sodium [Moles/Vol] 130 mmol/L Low 136-145 [facility] Comment on above: Performed By: #### C BC, CMP, CK, HS TROP #### [facility] [address] [place] [address] [place] Urea nitrogen [Mass/Vol] 17 mg/dL Normal 7-25 [facility] Comment on above: Performed By: #### C BC, CMP, CK, HS TROP #### [facility] [address] [place] [id number] [place] Creatine Kinaseon 07-01-2024 CK [Catalytic activity/Vol] 26 U/L Low 30-223 [facility] Comment on above: Performed By: #### C BC, CMP, CK, HS TROP #### [place] [address] [place] Creatine kinase [Enzymatic a ctivity/volume] in Serum or PlasmaOrdered By: Yong Gagnon on 07-01-2024 CK [Catalytic activity/Vol] Creatine kinase [Enzymatic activity/volume] in Serum or Plasma Low 30-223 [facility] Creatinine [Mass/volume] in Serum or PlasmaOrdered By: Yong Gagnon on 07-01-2024 Creatinine [Mass/Vol] Creatinine [Mass/v olume] in Serum or Plasma 0.60-1.20 [facility] Dipstick and Microscopicon 0 07-01-2024 Appearance (U) Clear Normal Clear [facility] Comment on above: Order Comment: Name Collection Type:: Clean-Voided Midstream Performed By: #### C UU, ADDONUAPLUS #### [place] [address] [place] Bacteria,Urine 1+ High None Seen [facility] Comment on above: Order Comment: Name Collection Type:: Clean-Voided Midstream Performed By: #### C UU, ADDONUAPLUS #### [place] [address] [place] Bilirubin,Urine Negative Normal Negative [facility] Comment on above: Order Comment: Name Collection Type:: Clean-Voided Midstream Performed By: #### C UU, ADDONUAPLUS #### [address] Color (U) Colorless Normal Yellow [facility] Comment on above: Order Comment: Name Collection Type:: Clean-Voided Midstream Performed By: #### C UU, ADDONUAPLUS #### [address] Glucose Ql (U) >= High Normal [facility] Comment on above: Order Comment: Name Collection Type:: Clean-Voided Midstream Performed By: #### C UU, ADDONUAPLUS #### [place] [address] [place] Hyaline Casts,Urine None Normal 0-8 [facility] Comment on above: Order Comment: Name Collection Type:: Clean-Voided Midstream Result Comment: PERF ORMED BY: [place] [address] PATHOLOGIST [employer] DEVELOPER RICARDO LUGO M.D. Performed By: #### C UU, ADDONUAPLUS #### [address] Ketones Ql (U) Negative Normal Negative [facility] Comment on above: Order Comment: Name Collection Type:: Clean-Voided Midstream Performed By: #### C UU, ADDONUAPLUS #### [place] [address] [place] Leukocyte esterase Test strip Ql (U) 2+ High Negative [facility] Comment on above: Order Comment: Name Collection Type:: Clean-Voided Midstream Performed By: #### C UU, ADDONUAPLUS #### [place] [address] [place] Nitrite,Urine Negative Normal Negative [facility] Comment on above: Order Comment: Name Collection Type:: Clean-Voided Midstream Performed By: #### C UU, ADDONUAPLUS #### [address] Occult Blood,Urine 1+ High Negative [facility] Comment on above: Order Comment: Name Collection Type:: Clean-Voided Midstream Result Comment: PERF ORMED BY: [place] [address] PATHOLOGIST [employer] DEVELOPER RICARDO LUGO M.D. Performed By: #### C UU, ADDONUAPLUS #### [address] pH (U) 5.5 [pH] Normal 5.0-9.0 [facility] Comment on above: Order Comment: Name Collection Type:: Clean-Voided Midstream Performed By: #### C UU, ADDONUAPLUS #### [address] Protein,Urine Negative Normal Negative [facility] Comment on above: Order Comment: Name Collection Type:: Clean-Voided Midstream Performed By: #### C UU, ADDONUAPLUS #### [address] RBC,Urine 3 [HPF] Normal 0-4 [facility] Comment on above: Order Comment: Name Collection Type:: Clean-Voided Midstream Performed By: #### C UU, ADDONUAPLUS #### [address] Specificy [place],Urine 1.032 High 1.00 1-1.03 0 [facility] Comment on above: Order Comment: Name Collection Type:: Clean-Voided Midstream Performed By: #### C UU, ADDONUAPLUS #### [address] Squamous Epithelial Cell,Urine 5 [HPF] High 0-2 [facility] Comment on above: Order Comment: Name Collection Type:: Clean-Voided Midstream Performed By: #### C UU, ADDONUAPLUS #### [facility] [address] [place] [address] Urobilinogen,Urine Normal Normal Normal [facility] Comment on above: Order Comment: Name Collection Type:: Clean-Voided Midstream Performed By: #### C UU, ADDONUAPLUS #### [facility] [address] [place] [address] WBC,Urine 5 [HPF] High 0-4 [facility] Comment on above: Order Comment: Name Collection Type:: Clean-Voided Midstream Performed By: #### C UU, ADDONUAPLUS #### [facility] [address] [place] [address] ECG 12 lead ECGon 07-01-2024 ECG 12 lead ECG [facility] [place] [address] [place] [address] Electrocardiograph Report Signed Patient: Bina Campos MR#: [id number] 38 : 1975 Acct:[id number] Age/Sex: 48 / F ADM Date: 07/01/24 Loc: ER Room: Type: [facility] ER Attending Dr: Ordering Provider: Yong Gagnon Jr, MD Date of Service: 07/01/2411/19/115 ECG/ECG 12 lead ECG: Dizziness Copies to: Test Reason : Blood Pressure : 182/95 mmHG Vent. Rate : 84 BPM Atrial Rate : 84 BPM P-R Int : 164 ms QRS Dur : 82 ms QT Int : 386 ms P-R-T Axes : 74 42 20 degrees QTcB Int : 456 ms Normal sinus rhythm Low voltage QRS Borderline ECG When compared with ECG of 16-Dec-2023 21:38, Minimal criteria for Anterior infarct are no longer present No significant change was found Confirmed by YONG GAGNON MD ([id number]) on 07/01/2024 5:58:26 AM Referred By: Electronically Signed By: YONG GAGNON MD Transcribed By: MUS Signed [place], [place] [address] Normal [facility] Eosinophils Auto (Bld) [#/Vo l]Ordered By: Yong Gagnon on 07-01-2024 Eosinophils (Bld) [#/Vol] Automated eosinophil count 0.0-0.45 [facility] Eosinophils/100 WBC Auto (Bl d)Ordered By: Yong Gagnon on 07-01-2024 Eosinophils/100 WBC (Bld) Automated eosinophil % . [facility] Epithelial cells.squamous [# /area] in Urine sediment by Automated countOrdered By: Yong Gagnon on 07-01-2024 Epithelial cells.squamous Auto (Urine sed) [#/Area] Epithelial cells.squamous [#/area] in Urine sediment by Automated count High 0-2 [facility] Erythrocyte distribution wid th Auto (RBC) [Ratio]Ordered By: Yong Gagnon on 07-01-2024 Erythrocyte distribution width (RBC) [Ratio] Erythrocyte distribution width [Ratio] by Automated count 11.9-15.3 [facility] Erythrocytes [#/area] in Uri ne sediment by Automated countOrdered By: Yong Gagnon on 07-01-2024 RBC Auto (Urine sed) [#/Area] Erythrocytes [#/area] in Urine sediment by Automated count 0-4 [facility] Globulin Calc (S) [Mass/Vol] Ordered By: Yong Gagnon on 07-01-2024 Globulin (S) [Mass/Vol] Serum globulin m easurement by calculation (mass/volume) [facility] Glucose Glucometer (BldC) [M ass/Vol]Ordered By: Yong Gagnon on 07-01-2024 Glucose [Mass/Vol] Capillary blood gluc ose measurement by glucometer (mass/volume) [facility] Comment on above: Random Glucose Refer ence Range is dependent on time and content of last meal. Glucose of more than 200 mg/dL in a nonstressed, ambulatory subject supports the diagnosis of Diabetes Mellitus. Glucose Poct Glucometerson 0 07-01-2024 Glucose [Mass/Vol] 271 mg/dL Normal [facility] Comment on above: Result Comment: [place] Glucose Reference Range is dependent on time and content of last meal. Glucose of more than 200 mg/dL in a nonstressed, ambulatory subject supports the diagnosis of Diabetes Mellitus. PERFORMED BY: [facility] [address] [place] [address] PATHOLOGIST [employer] DEVELOPER RICARDO LUGO M.D. Performed By: #### G LULS #### Point of Care testing , Commemt1 Normal [facility] Comment on above: Result Comment: Glu2 : WILL NOTIFY DR/RN PERFORMED BY: [place] [address] PATHOLOGIST BACK END [employer] DEVELOPER RICARDO LUGO M.D. Performed By: #### C BC, CMP, CK, HS TROP #### [facility] [address] [place] [address] [place] Glucose [Mass/Vol] 423 mg/dL Off scale high [facility] Comment on above: Result Comment: [place] om Glucose Reference Range is dependent on time and content of last meal. Glucose of more than 200 mg/dL in a nonstressed, ambulatory subject supports the diagnosis of Diabetes Mellitus. Performed By: #### C BC, CMP, CK, HS TROP #### [facility] [address] [place] [address] [place] Glucose [Mass/volume] in Ser um or PlasmaOrdered By: Yong Gagnon on 07-01-2024 Glucose [Mass/Vol] Glucose [Mass/volume ] in Serum or Plasma Critically high 70-100 [facility] Comment on above: Critical Result Call ed to and read back by: MAURICIO MUÑIZ at: 07/01/2024 02:49:21 by:[id number] recommended reference rangeRandom Glucose Reference Range is dependent on time and content of last meal. Glucose of more than 200 mg/dL in a nonstressed, ambulatory subject supports the diagnosis of Diabetes Mellitus. Glucose [Mass/volume] in Uri ne by Test stripOrdered By: Yong Gagnon on 07-01-2024 Glucose Test strip (U) [Mass/Vol] Glucose [Mass/volume] in Urine by Test strip High Normal [facility] Hematocrit Auto (Bld) [Volum e fraction]Ordered By: Yong Gagnon on 07-01-2024 Hematocrit (Bld) [Volume fraction] Hematocrit [Volume Fraction] of Blood by Automated count 34.0-46.4 [facility] Hemoglobin Test strip Ql (U) Ordered By: Yong Gagnon on 07-01-2024 Hemoglobin Ql (U) Hemoglobin [Presence ] in Urine by Test strip High Negative [facility] Hemoglobin [Mass/volume] in BloodOrdered By: Yong Gagnon on 07-01-2024 Hemoglobin (Bld) [Mass/Vol] Hemoglobin [Mass/volume] in Blood 11.8-15.4 [facility] Hyaline casts [#/area] in Ur ine sediment by Automated countOrdered By: Yong Gagnon on 07-01-2024 Hyaline casts Auto (Urine sed) [#/Area] Hyaline casts [#/area] in Urine sediment by Automated count 0-8 [facility] Ketones Test strip Ql (U)Ord ered By: Yong Gagnon on 07-01-2024 Ketones Ql (U) Ketones [Presence] i n Urine by Test strip Negative [facility] Leukocyte esterase [Presence ] in Urine by Test stripOrdered By: Yong Gagnon on 07-01-2024 Leukocyte esterase Test strip Ql (U) Leukocyte esterase [Presence] in Urine by Test strip High Negative [facility] Leukocytes [#/area] in Urine sediment by Automated countOrdered By: Yong Gagnon on 07-01-2024 WBC Auto (Urine sed) [#/Area] Leukocytes [#/area] in Urine sediment by Automated count High 0-4 [facility] Leukocytes [#/volume] correc niya for nucleated erythrocytes in Blood by Automated counOrdered By: Yong Gagnon on 07-01-2024 WBC corrected for nucl RBC Auto (Bld) [#/Vol] Leukocytes [#/volume] corrected for nucleated erythrocytes in Blood by Automated coun 3.8-11.6 [facility] Lymphocytes Auto (Bld) [#/Vo l]Ordered By: Yong Gagnon on 07-01-2024 Lymphocytes (Bld) [#/Vol] Lymphocytes [#/volume] in Blood by Automated count 1.00-4.8 [facility] Lymphocytes/100 WBC Auto (Bl d)Ordered By: Yong Gagnon on 07-01-2024 Lymphocytes/100 WBC (Bld) Lymphocytes/100 leukocytes in Blood by Automated count . [facility] MCH Auto (RBC) [Entitic mass ]Ordered By: Yong Gagnon on 07-01-2024 MCH (RBC) [Entitic mass] MCH [Entitic mass] by Automated count 24.7-34.3 [facility] MCHC Auto (RBC) [Mass/Vol]Or dered By: Yong Gagnon on 07-01-2024 MCHC (RBC) [Mass/Vol] MCHC [Mass/volume] by Automated count 32.0-35.0 [facility] MCV Auto (RBC) [Entitic vol] Ordered By: Yong Gagnon on 07-01-2024 MCV (RBC) [Entitic vol] MCV [Entitic vol ume] by Automated count 80-100 [facility] Monocyte distribution width [Entitic volume] in Blood by AutomatedOrdered By: Yong Gagnon on 07-01-2024 Monocyte distribution width Auto (Bld) [Entitic vol] Monocyte distribution width [Entitic volume] in Blood by Automated 0.00-20.00 [facility] Monocytes Auto (Bld) [#/Vol] Ordered By: Yong Gagnon on 07-01-2024 Monocytes (Bld) [#/Vol] Automated blood monocyte count 0.0-0.8 [facility] Monocytes/100 WBC Auto (Bld) Ordered By: Yong Gagnon on 07-01-2024 Monocytes/100 WBC (Bld) Automated monocyte % . [facility] Neutrophils Auto (Bld) [#/Vo l]Ordered By: Yong Gagnon on 07-01-2024 Neutrophils (Bld) [#/Vol] Neutrophils [#/volume] in Blood by Automated count 1.8-7.7 [facility] Neutrophils/100 WBC Auto (Bl d)Ordered By: Yong Gagnon on 07-01-2024 Neutrophils/100 WBC (Bld) Automated neutrophil % . [facility] Nitrite Test strip Ql (U)Ord ered By: Yong Gagnon on 07-01-2024 Nitrite Ql (U) Nitrite [Presence] i n Urine by Test strip Negative [facility] No Panel InformationOrdered By: Yong Gagnon on 07-01-2024 Bedside Glucose Comment See comment [facility] Comment on above: Glu2: WILL NOTIFY DR /RN Estimated GFR (CKD-EPI) > 60.0 mL/Min [facility] Creatinine Clearance (Chem 92.73 [facility] Nucleated erythrocytes [Pres ence] in Blood by Automated countOrdered By: Yong Gagnon on 07-01-2024 Nucleated RBC Auto Ql (Bld) Nucleated erythrocytes [Presence] in Blood by Automated count 0-0.5 [facility] Platelet mean volume Auto (B ld) [Entitic vol]Ordered By: Yong Gagnon on 07-01-2024 Platelet mean volume (Bld) [Entitic vol] Platelet mean volume [Entitic volume] in Blood by Automated count 6.3-10.7 [facility] Platelets Auto (Bld) [#/Vol] Ordered By: Yong Gagnon on 07-01-2024 Platelets (Bld) [#/Vol] Platelets [#/vol ume] in Blood by Automated count 150-450 [facility] Potassium [Moles/volume] in Serum or PlasmaOrdered By: Yong Gagnon on 07-01-2024 Potassium [Moles/Vol] Potassium [Moles/v olume] in Serum or Plasma 3.5-5.1 [facility] Protein Test strip (U) [Mass /Vol]Ordered By: Yong Gagnon on 07-01-2024 Protein (U) [Mass/Vol] Protein [Mass/vol ume] in Urine by Test strip Negative [facility] Protein [Mass/volume] in Ser um or PlasmaOrdered By: Yong Gagnon on 07-01-2024 Protein [Mass/Vol] Protein [Mass/volume ] in Serum or Plasma 6.4-8.9 [facility] RBC Auto (Bld) [#/Vol]Ordere d By: Yong Gagnon on 07-01-2024 RBC (Bld) [#/Vol] Erythrocytes [#/volu me] in Blood by Automated count 3.60-5.00 [facility] Serum or plasma albumin/glob ulin mass ratioOrdered By: Yong Gagnon on 07-01-2024 Albumin/Globulin [Mass ratio] Serum or plasma albumin/globulin mass ratio [facility] Serum or plasma anion gap de terminationOrdered By: Yong Gagnon on 07-01-2024 Anion gap [Moles/Vol] Serum or plasma an ion gap determination 6.0-15.0 [facility] Sodium [Moles/volume] in Ser um or PlasmaOrdered By: Yong Gagnon on 07-01-2024 Sodium [Moles/Vol] Sodium [Moles/volume ] in Serum or Plasma Low 136-145 [facility] Specific gravity Test strip (U) [Rel density]Ordered By: Yong Gagnon on 07-01-2024 Specific gravity (U) [Rel density] Specific gravity of Urine by Test strip High 1.001-1.03 0 [facility] Troponin I High Sensitivityo n 07-01-2024 Troponin I High Sensitivity 8.6 pg/mL Normal 0.0-15.0 [facility] Comment on above: Result Comment: PERF ORMED BY: [facility] [address] [facility] [place] [address] PATHOLOGIST [employer] DEVELOPER RICARDO LUGO M.D. Performed By: #### C BC, CMP, CK, HS TROP #### [facility] [address] Troponin I.cardiac [Mass/vol ume] in Serum or Plasma by Detection limit <= 0.01 ng/Ordered By: Yong Gagnon on 07-01-2024 Troponin I.cardiac DL <= 0.01 ng/mL [Mass/Vol] Troponin I.cardiac [Mass/volume] in Serum or Plasma by Detection limit <= 0.01 ng/ 0.0-15.0 [facility] Urea nitrogen [Mass/volume] in Serum or PlasmaOrdered By: Yong Gagnon on 07-01-2024 Urea nitrogen [Mass/Vol] Urea nitrogen [Mass/volume] in Serum or Plasma 7-25 [facility] Urine Cultureon 07-01-2024 Bacteria identified Cx Nom (U) ORGANISM: Strep agalactiae - (group b) (O:STRAGA) [place] Count 75,000 ORGANISM: Methicillin Resis Staph Aureus (O:MRSA) [place] Count 25,000 Aerobic WILL Charge (PCMIC38) SUSCEPTIBILITY ORGANISM: O:MRSA ANTIBIOTIC INTERPRETATION WILL Ceftaroline S <0.5 Daptomycin S <0.5 Linezolid S 2 Nitrofurantoin S <32 Oxacillin R >2 Penicillin R >2 Tetracycline R >8 Trimethoprim/Sulfamethoxaz ole S <0.5 Vancomycin S 0.5 S = SUSCEPTIBLE I = INTERMEDIATE R = RESISTANT BLANK = DATA NOT AVAILABLE, OR DRUG NOT ADVISABLE OR TESTED R* = RESISTANCE DUE TO EXTENDED SPECTRUM BETA-LACTAMASES ESBL = EXTENDED SPECTRUM BETA-LACTAMASE TFG = THYMIDINE-DEPENDENT STRAIN ALIZA = BETA-LACTAMASE POSITIVE IB = INDUCIBLE BETA-LACTAMASE. APPEARS IN PLACE OF 'S' WITH SPECIES KNOWN TO POSSESS INDUCIBLE BETA-LACTAMASES. POTENTIALLY THEY MAY BECOME RESISTANT TO ALL B-LACTAM DRUGS. PERFORMED BY: [place] [address] PATHOLOGIST BACK [employer] DEVELOPER RICARDO LUGO M.D. Normal [facility] Comment on above: Performed By: #### C UU, ADDONUAPLUS #### [address] Urobilinogen Test strip (U) [Mass/Vol]Ordered By: Yong Gagnon on 07-01-2024 Urobilinogen (U) [Mass/Vol] Urobilinogen [Mass/volume] in Urine by Test strip Normal [facility] WBC Auto (Bld) [#/Vol]Ordere d By: Yong Gagnon on 07-01-2024 WBC (Bld) [#/Vol] Leukocytes [#/volume ] in Blood by Automated count 3.8-11.6 [facility] pH Test strip (U)Ordered By: Yong Gagnon on 07-01-2024 pH (U) pH of Urine by Test strip 5.0-9.0 [facility] ECG 12 lead ECGon 12-16-2023 ECG 12 lead ECG [facility] [place] [address] Electrocardiograph Report Signed Patient: Bina Campos MR#: [id number] 38 : 1975 Acct:[id number] Age/Sex: 48 / F ADM Date: 12/16/23 Loc: ER Room: Type: [facility] ER Attending Dr: Ordering Provider: Yvonne Ji DO Date of Service: 12/16/23 ECG/ECG 12 lead ECG: Shortness of Breath/Dyspnea Copies to: Test Reason : Blood Pressure : 146/075 mmHG Vent. Rate : 104 BPM Atrial Rate : 104 BPM P-R Int : 146 ms QRS Dur : 078 ms QT Int : 342 ms P-R-T Axes : 061 061 031 degrees QTc Int : 449 ms Sinus tachycardia Low voltage QRS Possible Inferior infarct , age undetermined Cannot rule out Anterior infarct (cited on or before 16-DEC-2023) Abnormal ECG When compared with ECG of 15-APR-2022 15:50, Borderline criteria for Inferior infarct are now present Nonspecific T wave abnormality now evident in Anterior leads Confirmed by YVONNE JI DO ([id number]) on 12/17/2023 10:40:56 PM Referred By: Electronically Signed By:YVONNE JI DO Transcribed By: MUS Signed By Yvonne Ji DO 2240 Normal [facility] Alanine aminotransferase [En zymatic activity/volume] in Serum or PlasmaOrdered By: Yodit Corea on 11-25-2023 ALT [Catalytic activity/Vol] 23 U/L Normal 7-52 [facility] Comment on above: Performed By: #### C BC, CMP, CK, HS TROP #### [facility] [address] [place] [address] [place] Albumin [Mass/volume] in Ser um or Plasma by Bromocresol green (BCG) dye binding methoOrdered By: Yodit Corea on 11-25-2023 Albumin BCG dye [Mass/Vol] 4.2 g/dL 3.5-5.7 [facility] Alkaline phosphatase [Enzyma tic activity/volume] in Serum or PlasmaOrdered By: Yodit Corea on 11-25-2023 ALP [Catalytic activity/Vol] 68 U/L Normal 34-104 [facility] Comment on above: Performed By: #### C BC, CMP, CK, HS TROP #### [facility] [address] [place] [id number] [place] Aspartate aminotransferase [ Enzymatic activity/volume] in Serum or PlasmaOrdered By: Yodit Corea on 11-25-2023 AST [Catalytic activity/Vol] 16 U/L Normal 13-39 [facility] Comment on above: Performed By: #### C BC, CMP, CK, HS TROP #### [facility] [address] [place] [id number] [place] Bilirubin.total [Mass/volume ] in Serum or PlasmaOrdered By: Yodit Corea on 11-25-2023 Bilirubin [Mass/Vol] 0.4 mg/dL Normal 0.3-1.0 [facility] Comment on above: Performed By: #### C BC, CMP, CK, HS TROP #### [facility] [address] [place] [address] [place] Calcium [Mass/volume] in Ser um or PlasmaOrdered By: Yodit Corea on 11-25-2023 Calcium [Mass/Vol] 10.0 mg/dL Normal 8.6-10.3 [facility] Comment on above: Performed By: #### C BC, CMP, CK, HS TROP #### [address] Carbon dioxide, total [Moles /volume] in Serum or PlasmaOrdered By: Yodit Corea on 11-25-2023 CO2 [Moles/Vol] 29.2 mmol/L Normal 21.0-31.0 [facility] Comment on above: Performed By: #### C BC, CMP, CK, HS TROP #### [place] [address] [place] Chloride [Moles/volume] in S dinora or PlasmaOrdered By: Yodit Corea on 11-25-2023 Chloride [Moles/Vol] 104 mmol/L Normal 98-107 [facility] Comment on above: Performed By: #### C BC, CMP, CK, HS TROP #### [facility] [address] [place] [address] [place] Cholesterol [Mass/volume] in Serum or PlasmaOrdered By: Yodit Corea on 11-25-2023 Cholesterol [Mass/Vol] 273 mg/dL High 140-200 [facility] Comment on above: Chol less than 200 m g/dl low riskChol 201-239 mg/dl borderline riskChol 240 mg/dl and greater high risk Result Comment: Chol less than 200 mg/dl low risk Chol 201-239 mg/dl borderline risk Chol 240 mg/dl and greater high risk Performed By: #### C BC, CMP, CK, HS TROP #### [facility] [address] Cholesterol in LDL Calc [Mas s/Vol]Ordered By: Yodit Corea on 11-25-2023 Cholesterol in LDL [Mass/Vol] 186 mg/dL 0-100 [facility] Comment on above: LDL ATP III CLASSIFI CATIONLDL less than 100 mg/dL OptimalLDL 100-129 mg/dL Near or above optimalLDL 130-159 mg/dL Borderline highLDL 160-189 mg/dL HighLDL greater than 189 mg/dL Very high Cholesterol in VLDL Calc [Ma ss/Vol]Ordered By: Yodit Corea on 11-25-2023 Cholesterol in VLDL [Mass/Vol] 26 mg/dL [facility] Comprehensive Metabolic Pane mala 11-25-2023 Albumin [Mass/Vol] 4.2 g/dL Normal 3.5-5.7 [facility] Comment on above: Performed By: #### C BC, CMP, CK, HS TROP #### [facility] [address] [place] [address] [place] GFR/1.73 sq M.predicted MDRD (S/P/Bld) [Vol rate/Area] mL/min/{1.73_m2} Normal [facility] Comment on above: Performed By: #### C BC, CMP, CK, HS TROP #### [facility] [address] [place] [address] Creatinine [Mass/volume] in Serum or PlasmaOrdered By: Yodit Corea on 11-25-2023 Creatinine [Mass/Vol] 0.83 mg/dL Normal 0.60-1.20 [facility] Comment on above: Performed By: #### C BC, CMP, CK, HS TROP #### [facility] [address] [place] [address] [place] Creatinine [Mass/volume] in UrineOrdered By: Yodit Corea on 11-25-2023 Creatinine (U) [Mass/Vol] 65.00 mg/dL [facility] Comment on above: No reference range e stablished Erythrocyte distribution wid th [Ratio] by Automated countOrdered By: Yodit Corea on 11-25-2023 Erythrocyte distribution width (RBC) [Ratio] 13.7 % Normal 11.9-15.3 [facility] Comment on above: Performed By: #### C BCNO #### [facility] [address] Erythrocytes [#/volume] in B lood by Automated countOrdered By: Yodit Nazario on 11-25-2023 RBC (Bld) [#/Vol] 4.88 10*6/uL Normal 3.60-5.00 [facility] Comment on above: Performed By: #### C BCNO #### [facility] [address] [place] [address] [place] Glucose [Mass/volume] in Ser um or PlasmaOrdered By: Yodit Corea on 11-25-2023 Glucose [Mass/Vol] 371 mg/dL High 70-100 [facility] Comment on above: ADA recommended refe rence rangeRandom Glucose Reference Range is dependent on time and content of last meal. Glucose of more than 200 mg/dL in a nonstressed, ambulatory subject supports the diagnosis of Diabetes Mellitus. Result Comment: [place] om Glucose Reference Range is dependent on time and content of last meal. Glucose of more than 200 mg/dL in a nonstressed, ambulatory subject supports the diagnosis of Diabetes Mellitus. ADA recommended reference range Performed By: #### C BC, CMP, CK, HS TROP #### [facility] [address] [place] [address] [place] Hematocrit [Volume Fraction] of Blood by Automated countOrdered By: Yodit Corea on 11-25-2023 Hematocrit (Bld) [Volume fraction] 41.1 % Normal 34.0-46.4 [facility] Comment on above: Performed By: #### C BCNO #### [facility] [address] [place] [address] [place] Hemoglobin [Mass/volume] in BloodOrdered By: Yodit Corea on 11-25-2023 Hemoglobin (Bld) [Mass/Vol] 13.7 g/dL Normal 11.8-15.4 [facility] Comment on above: Performed By: #### C BCNO #### [facility] [address] Hemogram CBC Without Diffon 11-25-2023 Mean Corpuscular HGB Conc 33.2 g/dL Normal 32.0-35.0 [facility] Comment on above: Performed By: #### C BCNO #### [facility] [address] WBC (Bld) [#/Vol] 7.3 10*3/uL Normal 3.8-11.6 [facility] Comment on above: Performed By: #### C BCNO #### [facility] [address] Leukocytes [#/volume] correc niya for nucleated erythrocytes in Blood by Automated counOrdered By: Yodit Corea on 11-25-2023 WBC corrected for nucl RBC Auto (Bld) [#/Vol] 7.3 10*3/uL 3.8-11.6 [facility] Lipid Panelon 11-25-2023 LDL Cholesterol,Calculated 186 mg/dL High 0-100 [facility] Comment on above: Result Comment: LDL ATP III CLASSIFICATION LDL less than 100 mg/dL Optimal LDL 100-129 mg/dL Near or above optimal LDL 130-159 mg/dL Borderline high LDL 160-189 mg/dL High LDL greater than 189 mg/dL Very high Performed By: #### C BC, CMP, CK, HS TROP #### [address] Triglyceride w/Reflex 131 mg/dL Normal 0-149 [facility] Comment on above: Result Comment: TRIG ATP III CLASSIFICATION TRIG less than 150 mg/dL Normal TRIG 150-199 mg/dL Borderline high TRIG 200-500 mg/dL High TRIG greater than 500 mg/dL Very high Standard traceable to the Center for Disease Conrtrol and Prevention (CDC) test method. Performed By: #### C BC, CMP, CK, HS TROP #### [facility] [address] VLDL CHOLESTEROL 26 mg/dL Normal [facility] Comment on above: Performed By: #### C BC, CMP, CK, HS TROP #### [address] MCH [Entitic mass] by Automa niya countOrdered By: Yodit Corea on 11-25-2023 MCH (RBC) [Entitic mass] 28.0 pg Normal 24.7-34.3 [facility] Comment on above: Performed By: #### C BCNO #### [address] MCHC Auto (RBC) [Mass/Vol]Or dered By: Yodit Corea on 11-25-2023 MCHC (RBC) [Mass/Vol] 33.2 g/dL 32.0-35.0 [facility] MCV [Entitic volume] by Auto mated countOrdered By: Yodit Corea on 11-25-2023 MCV (RBC) [Entitic vol] 84.3 fL Normal 80-100 [facility] Comment on above: Performed By: #### C BCNO #### [address] MicroAlb Creat Ratio,Uon Creatinine, Urine (Random) 65.00 mg/dL Normal [facility] Comment on above: Result Comment: No r eference range established Performed By: #### C BC, CMP, CK, HS TROP #### [address] Microalbumin/Creatinine Ratio 50.8 mg/g High 0.0-30.0 [facility] Comment on above: Result Comment: 30-3 00 mg/g indicates an increased risk for diabetic nephropathy. Greater than 300 mg/g is consistent with clinical nephropathy. (Am. J. Kidney Disease 1995, 25:107) PERFORMED BY: [place] [address] PATHOLOGIST [employer] DEVELOPER ROSALINA MCINTOSH M.D. Performed By: #### C BC, CMP, CK, HS TROP #### [address] Microalbumin [Mass/volume] i n UrineOrdered By: Yodit Corea on 11-25-2023 Albumin DL <= 20 mg/L (U) [Mass/Vol] 3.3 mg/dL High 0.0-1.8 [facility] Comment on above: Performed By: #### C BC, CMP, CK, HS TROP #### [address] No Panel InformationOrdered By: Yodit Corea on 11-25-2023 Estimated GFR (CKD-EPI) > 60.0 mL/Min [facility] Creatinine Clearance (Chem N/A [facility] Platelet mean volume [Entiti c volume] in Blood by Automated countOrdered By: Yodit Corea on 11-25-2023 Platelet mean volume (Bld) [Entitic vol] 9.2 fL Normal 6.3-10.7 [facility] Comment on above: Result Comment: PERF ORMED BY: [place] [address] PATHOLOGIST [employer] DEVELOPER ROSALINA MCINTOSH M.D. Performed By: #### C BCNO #### [address] Platelets [#/volume] in Bloo d by Automated countOrdered By: Yodit Corea on 11-25-2023 Platelets (Bld) [#/Vol] 298 10*3/uL Normal 150-450 [facility] Comment on above: Performed By: #### C BCNO #### [place] [address] [place] Potassium [Moles/volume] in Serum or PlasmaOrdered By: Yodit Corea on 11-25-2023 Potassium [Moles/Vol] 4.9 mmol/L Normal 3.5-5.1 [facility] Comment on above: Performed By: #### C BC, CMP, CK, HS TROP #### [place] [address] [place] Protein [Mass/volume] in Ser um or PlasmaOrdered By: Yodit Corea on 11-25-2023 Protein [Mass/Vol] 6.5 g/dL Normal 6.4-8.9 [facility] Comment on above: Performed By: #### C BC, CMP, CK, HS TROP #### [facility] [address] Serum globulin measurement b y calculation (mass/volume)Ordered By: Yodit Corea on 11-25-2023 Globulin (S) [Mass/Vol] 2.3 g/dL Normal [facility] Comment on above: Performed By: #### C BC, CMP, CK, HS TROP #### [address] Serum or plasma albumin/glob ulin mass ratioOrdered By: Yodit Corea on 11-25-2023 Albumin/Globulin [Mass ratio] 1.8 {ratio} Normal [facility] Comment on above: Performed By: #### C BC, CMP, CK, HS TROP #### [address] Serum or plasma anion gap de terminationOrdered By: Yodit Corea on 11-25-2023 Anion gap [Moles/Vol] 9.7 mmol/L Normal 6.0-15.0 [facility] Comment on above: Performed By: #### C BC, CMP, CK, HS TROP #### [address] Serum or plasma high density lipoprotein (HDL) cholesterol measurementOrdered By: Yodit Corea on 11-25-2023 Cholesterol in HDL [Mass/Vol] 61 mg/dL Normal 23-92 [facility] Comment on above: HDL CHOL ATP-III CLA SSIFICATION Cardiovascular RiskHDL > or equal to 60 mg/dL LOWHDL < 40 mg/dL HIGH Result Comment: HDL CHOL ATP-III CLASSIFICATION Cardiovascular Risk HDL > or equal to 60 mg/dL LOW HDL < 40 mg/dL HIGH Performed By: #### C BC, CMP, CK, HS TROP #### [address] Serum or plasma total choles terol/high density lipoprotein (HDL) cholesterol mass ratOrdered By: Yodit Corea on 11-25-2023 Cholesterol.total/Rochelle sterol in HDL [Mass ratio] 4.5 {ratio} Normal <5.0 [facility] Comment on above: Result Comment: PERF ORMED BY: [place] [address] PATHOLOGIST BACK END WEB DEVELOPER ROSALINA MCINTOSH M.D. Performed By: #### C BC, CMP, CK, HS TROP #### [facility] [address] [place] [address] [place] Sodium [Moles/volume] in Ser um or PlasmaOrdered By: Yodit Corea on 11-25-2023 Sodium [Moles/Vol] 138 mmol/L Normal 136-145 [facility] Comment on above: Performed By: #### C BC, CMP, CK, HS TROP #### [facility] [address] Triglyceride [Mass/volume] i n Serum or PlasmaOrdered By: Yodit Corea on 11-25-2023 Triglyceride [Mass/Vol] 131 mg/dL 0-149 [facility] Comment on above: TRIG ATP III CLASSIF ICATIONTRIG less than 150 mg/dL NormalTRIG 150-199 mg/dL Borderline highTRIG 200-500 mg/dL High TRIG greater than 500 mg/dL Very highStandard traceable to the Center for Disease Conrtrol and Prevention (CDC) test method. Urea nitrogen [Mass/volume] in Serum or PlasmaOrdered By: Yodit Corea on 11-25-2023 Urea nitrogen [Mass/Vol] 23 mg/dL Normal 7-25 [facility] Comment on above: Performed By: #### C BC, CMP, CK, HS TROP #### [facility] [address] [place] [address] [place] Urine microalbumin/creatinin e mass ratioOrdered By: Yodit Corea on 11-25-2023 Albumin/Creatinine DL <= 20 mg/L (U) [Mass ratio] 50.8 mg/g 0.0-30.0 [facility] Comment on above: 30-300 mg/g indicate s an increased risk for diabetic nephropathy. Greater than 300 mg/g is consistent with clinical nephropathy. (Am. J. Kidney Disease 1995, 25:107) POCT Glycated hemoglobin, to joel 08-03-2023 HbA1c (Bld) [Mass fraction] 12.2 % [facility] Alanine aminotransferase [En zymatic activity/volume] in Serum or PlasmaOrdered By: Yodit Corea on 12-09-2022 ALT [Catalytic activity/Vol] 19 U/L 7-52 [facility] Albumin [Mass/volume] in Ser um or Plasma by Bromocresol green (BCG) dye binding methoOrdered By: Yodit Corea on 12-09-2022 Albumin BCG dye [Mass/Vol] 4.4 g/dL 3.5-5.7 [facility] Alkaline phosphatase [Enzyma tic activity/volume] in Serum or PlasmaOrdered By: Yodit Corea on 12-09-2022 ALP [Catalytic activity/Vol] 85 U/L 34-104 [facility] Aspartate aminotransferase [ Enzymatic activity/volume] in Serum or PlasmaOrdered By: Yodit Corea on 12-09-2022 AST [Catalytic activity/Vol] 14 U/L 13-39 [facility] Basophils Auto (Bld) [#/Vol] Ordered By: Yodit Corea on 12-09-2022 Basophils (Bld) [#/Vol] 0.0 10*3/uL 0.0-0.2 [facility] Basophils/100 WBC Auto (Bld) Ordered By: Yodit Corea on 12-09-2022 Basophils/100 WBC (Bld) 0.8 % . [facility] Bilirubin.total [Mass/volume ] in Serum or PlasmaOrdered By: Yodit Corea on 12-09-2022 Bilirubin [Mass/Vol] 0.5 mg/dL 0.3-1.0 [facility] Calcium [Mass/volume] in Ser um or PlasmaOrdered By: Yodit Corea on 12-09-2022 Calcium [Mass/Vol] 9.5 mg/dL 8.6-10.3 [facility] Carbon dioxide, total [Moles /volume] in Serum or PlasmaOrdered By: Yodit Corea on 12-09-2022 CO2 [Moles/Vol] 28.2 mmol/L 21.0-31.0 [facility] Chloride [Moles/volume] in S dinora or PlasmaOrdered By: Yodit Corea on 12-09-2022 Chloride [Moles/Vol] 101 mmol/L 98-107 [facility] Cholesterol [Mass/volume] in Serum or PlasmaOrdered By: Yodit Corea on 12-09-2022 Cholesterol [Mass/Vol] 256 mg/dL 140-200 [facility] Comment on above: Chol less than 200 m g/dl low riskChol 201-239 mg/dl borderline riskChol 240 mg/dl and greater high risk Cholesterol in LDL Calc [Mas s/Vol]Ordered By: Yodit Corea on 12-09-2022 Cholesterol in LDL [Mass/Vol] 181 mg/dL 0-100 [facility] Comment on above: LDL ATP III CLASSIFI CATIONLDL less than 100 mg/dL OptimalLDL 100-129 mg/dL Near or above optimalLDL 130-159 mg/dL Borderline highLDL 160-189 mg/dL HighLDL greater than 189 mg/dL Very high Cholesterol in VLDL Calc [Ma ss/Vol]Ordered By: Yodit Corea on 12-09-2022 Cholesterol in VLDL [Mass/Vol] 17 mg/dL [facility] Creatinine [Mass/volume] in Serum or PlasmaOrdered By: Yodit Corea on 12-09-2022 Creatinine [Mass/Vol] 0.79 mg/dL 0.60-1.20 [facility] Eosinophils Auto (Bld) [#/Vo l]Ordered By: Yodit Corea on 12-09-2022 Eosinophils (Bld) [#/Vol] 0.1 10*3/uL 0.0-0.45 [facility] Eosinophils/100 WBC Auto (Bl d)Ordered By: Yodit Corea on 12-09-2022 Eosinophils/100 WBC (Bld) 1.8 % . [facility] Erythrocyte distribution wid th Auto (RBC) [Ratio]Ordered By: Yodit Corea on 12-09-2022 Erythrocyte distribution width (RBC) [Ratio] 13.2 % 11.9-15.3 [facility] Globulin Calc (S) [Mass/Vol] Ordered By: Yodit Corea on 12-09-2022 Globulin (S) [Mass/Vol] 2.4 g/dL [facility] Glucose [Mass/volume] in Ser um or PlasmaOrdered By: Yodit Corea on 12-09-2022 Glucose [Mass/Vol] 357 mg/dL 70-100 [facility] Comment on above: ADA recommended refe rence rangeRandom Glucose Reference Range is dependent on time and content of last meal. Glucose of more than 200 mg/dL in a nonstressed, ambulatory subject supports the diagnosis of Diabetes Mellitus. Glucose mean value [Mass/vol ume] in Blood Estimated from glycated hemoglobinOrdered By: Yodit Corea on 12-09-2022 Average glucose Estimated from glycated hemoglobin (Bld) [Mass/Vol] 355 mg/dL [facility] Hematocrit Auto (Bld) [Volum e fraction]Ordered By: Yodit Corea on 12-09-2022 Hematocrit (Bld) [Volume fraction] 40.7 % 34.0-46.4 [facility] Hemoglobin A1c percentageOrd ered By: Yodit Corea on 12-09-2022 HbA1c (Bld) [Mass fraction] 14.0 % 4.3-5.6 [facility] Comment on above: Increased risk for d iabetes: 5.7 - 6.4diabetes: >6.4glycemic control for adults with diabetes: <7.0 Hemoglobin [Mass/volume] in BloodOrdered By: Yodit Corea on 12-09-2022 Hemoglobin (Bld) [Mass/Vol] 13.6 g/dL 11.8-15.4 [facility] Leukocytes [#/volume] correc niya for nucleated erythrocytes in Blood by Automated counOrdered By: Yodit Corea on 12-09-2022 WBC corrected for nucl RBC Auto (Bld) [#/Vol] 5.9 10*3/uL 3.8-11.6 [facility] Lymphocytes Auto (Bld) [#/Vo l]Ordered By: Yodit Corea on 12-09-2022 Lymphocytes (Bld) [#/Vol] 1.4 10*3/uL 1.00-4.8 [facility] Lymphocytes/100 WBC Auto (Bl d)Ordered By: Yodit Corea on 12-09-2022 Lymphocytes/100 WBC (Bld) 23.6 % . [facility] MCH Auto (RBC) [Entitic mass ]Ordered By: Yodit Corea on 12-09-2022 MCH (RBC) [Entitic mass] 27.8 pg 24.7-34.3 [facility] MCHC Auto (RBC) [Mass/Vol]Or dered By: Yodit Corea on 12-09-2022 MCHC (RBC) [Mass/Vol] 33.3 g/dL 32.0-35.0 [facility] MCV Auto (RBC) [Entitic vol] Ordered By: Yodit Corea on 12-09-2022 MCV (RBC) [Entitic vol] 83.4 fL 80-100 [facility] Monocytes Auto (Bld) [#/Vol] Ordered By: Yodit Corea on 12-09-2022 Monocytes (Bld) [#/Vol] 0.5 10*3/uL 0.0-0.8 [facility] Monocytes/100 WBC Auto (Bld) Ordered By: Yodit Corea on 12-09-2022 Monocytes/100 WBC (Bld) 9.0 % . [facility] Neutrophils Auto (Bld) [#/Vo l]Ordered By: Yodit Corea on 12-09-2022 Neutrophils (Bld) [#/Vol] 3.8 10*3/uL 1.8-7.7 [facility] Neutrophils/100 WBC Auto (Bl d)Ordered By: Yodit Corea on 12-09-2022 Neutrophils/100 WBC (Bld) 64.8 % . [facility] No Panel InformationOrdered By: Yodit Corea on 12-09-2022 Estimated GFR (CKD-EPI) > 60.0 mL/Min [facility] Creatinine Clearance (Chem N/A [facility] Nucleated erythrocytes [Pres ence] in Blood by Automated countOrdered By: Yodit Corea on 12-09-2022 Nucleated RBC Auto Ql (Bld) 0.1 /100{WBC} 0-0.5 [facility] Platelet mean volume Auto (B ld) [Entitic vol]Ordered By: Yodit Corea on 12-09-2022 Platelet mean volume (Bld) [Entitic vol] 9.4 fL 6.3-10.7 [facility] Platelets Auto (Bld) [#/Vol] Ordered By: Yodit Corea on 12-09-2022 Platelets (Bld) [#/Vol] 277 10*3/uL 150-450 [facility] Potassium [Moles/volume] in Serum or PlasmaOrdered By: Yodit Corea on 12-09-2022 Potassium [Moles/Vol] 4.5 mmol/L 3.5-5.1 [facility] Protein [Mass/volume] in Ser um or PlasmaOrdered By: Yodit Corea on 12-09-2022 Protein [Mass/Vol] 6.8 g/dL 6.4-8.9 [facility] RBC Auto (Bld) [#/Vol]Ordere d By: Yodit Corea on 12-09-2022 RBC (Bld) [#/Vol] 4.88 10*6/uL 3.60-5.00 [facility] Serum or plasma albumin/glob ulin mass ratioOrdered By: Yodit Corea on 12-09-2022 Albumin/Globulin [Mass ratio] 1.8 {ratio} [facility] Serum or plasma anion gap de terminationOrdered By: Yodit Corea on 12-09-2022 Anion gap [Moles/Vol] 12.3 mmol/L 6.0-15.0 [facility] Serum or plasma high density lipoprotein (HDL) cholesterol measurementOrdered By: Yodit Corea on 12-09-2022 Cholesterol in HDL [Mass/Vol] 58 mg/dL 23-92 [facility] Comment on above: HDL CHOL ATP-III CLA SSIFICATION Cardiovascular RiskHDL > or equal to 60 mg/dL LOWHDL < 40 mg/dL HIGH Serum or plasma total choles terol/high density lipoprotein (HDL) cholesterol mass ratOrdered By: Yodit Corea on 12-09-2022 Cholesterol.total/Rochelle sterol in HDL [Mass ratio] 4.4 {ratio} <5.0 [facility] Sodium [Moles/volume] in Ser um or PlasmaOrdered By: Yodit Corea on 12-09-2022 Sodium [Moles/Vol] 137 mmol/L 136-145 [facility] Triglyceride [Mass/volume] i n Serum or PlasmaOrdered By: Yodit Corea on 12-09-2022 Triglyceride [Mass/Vol] 86 mg/dL 0-149 [facility] Comment on above: TRIG ATP III CLASSIF ICATIONTRIG less than 150 mg/dL NormalTRIG 150-199 mg/dL Borderline highTRIG 200-500 mg/dL High TRIG greater than 500 mg/dL Very highStandard traceable to the Center for Disease Conrtrol and Prevention (CDC) test method. Urea nitrogen [Mass/volume] in Serum or PlasmaOrdered By: Yodit Corea on 12-09-2022 Urea nitrogen [Mass/Vol] 15 mg/dL 7-25 [facility] WBC Auto (Bld) [#/Vol]Ordere d By: Yodit Corea on 12-09-2022 WBC (Bld) [#/Vol] 5.9 10*3/uL 3.8-11.6 [facility] Consent for Procedure/Surger yon 05-06-2022 Consent for Procedure/Surgery [id number]#[id number]:127 Normal [facility] Gastroenterology Office/Clin ic Noteon 05-06-2022 Gastroenterology Office/Clinic Note Chief Complaint ref by PCP for N/V/D and bloody emesis/stool HPI Staff Patient is a 46 year old femalewho presents today from a [facility] 04/09/22 for N/V/D, vomiting blood and bloody stools. CT abdomen and pelvis done 04/15/22. History of Present Illness Bina Campos is a 46-year-old white female who was referred to me for nausea, vomiting, and bloody emesis. She reports that she has been vomiting for approximately 2 months. She has been to the emergency room a few times and was told that she was dehydrated. She was given promethazine and Zofran, but she continues to have nausea and vomiting. She had a CT scan done and was told that they did not see any free floating fluid. She has not had a gastric emptying scan. She has a history of gastroparesis when she had COVID-19 and was informed of this in the hospital without having a gastric emptying scan performed. She reports that she occasionally has hematochezia, but she believes that she has a hemorrhoid. She reports that the day that she was vomiting, she had blood clots and diarrhea. She denies having a scope. She denies a family history of colon cancer. She reports that she has heartburn and acid reflux. She takes pvyn-inv-niqrodf medication for her acid reflux. She denies taking any narcotics or sedatives for pain. She reports that she has diabetes. She mentions that her blood sugars are running between 160 to 170 unless she is vomiting, then her blood glucose becomes elevated. Review of Systems PHQ Score Initial Depression Screen Score: 2 Constitutional: no fever, no chills, no sweats, no weakness Skin: no Jaundice, no rash, no lesions, no petechiae ENMT: no ear pain, no sore throat, no congestion, no hoarseness Respiratory: no shortness of breath, no cough, no orthopnea, no wheezing Cardiovascular: no chest pain, no palpitations, no edema Gastrointestinal: positive for nausea, vomiting, no diarrhea, no constipation, no GI bleeding, no abdominal pain, no dysphagia, no bloating, no heartburn Genitourinary: no dysuria, no hematuria, no discharge, no pain Musculoskeletal: no back pain, no trauma Neurologic: no numbness, no sleeping problems Additional ROS info: Except as noted in the above Review of Systems and in the History of Present Illness all other systems have been reviewed and are negative or noncontributory. Physical Exam Vitals & Measurements HR: 86(Peripheral) RR: 16 BP: 127/87 SpO2: 91% HT: 69 in HT: 176 cm WT: 86.0 kg WT: 189.2 lb BMI: 27.76 Constitutional: Appearance: well developed Skin: Inspection: no rashes, ulcers, icterus, or telangiectasias. Eyes: Conjunctivae/lids: normal conjunctivae and lids. ENMT: Hearing: within normal limits. Lips/Teeth/Gums: normal oral mucosa Neck: Neck: normal motion, central trachea Respiratory: Percussion: thorax normoresonant. Auscultation: normal breath sounds; no rubs, wheezes, rale or rhonchi. Cardiovascular: Auscultation: normal rhythm, S1 and S2; no rubs, murmurs or gallop. Peripheral: no edema Gastrointestinal/Abdomen: Abdomen: normal consistency and bowel sounds; no tenderness or masses. Liver/Spleen: normal size and consistency, not palpable. Rectal: deferred Musculoskeletal: Gait/station: normal gait Assessment/Plan 1. Nausea and vomiting (R11.2: Nausea with vomiting, unspecified) The patient has a chronic history of nausea and vomiting associated with hematemesis and rectal bleeding. She has a history of diabetes. Her hemoglobin A1c is not very well controlled. I will proceed with an EGD to rule out esophagitis, gastritis, and peptic ulcer disease. We will also proceed with a gastric emptying scan to evaluate for gastroparesis given her uncontrolled diabetes. 2. Bloody emesis (K92.0: Hematemesis) We will proceed with an EGD and start omeprazole 40 mg by mouth daily. 3. Rectal bleed (K62.5: Hemorrhage of anus and rectum) This is sporadic. We will proceed with a colonoscopy to evaluate for rectal bleeding. 4. Diabetes (E11.9: Type 2 diabetes mellitus without complications) This might be contributing to her gastroparesis which in turn leading to nausea, vomiting, and hematemesis. She is advised to control her blood sugar as much as she can. Documentation services were performed by WILFRID after patient consented to recording for virtual networking specialist and provider reviewed before signing. WILFRID: Janet Hare. Follow-up No qualifying data available Problem List/Past Medical History Ongoing Diabetes Rectal bleed Historical Anxiety Anxiety depression Medications Lexapro 5 mg oral tablet omeprazole 40 mg Cap-DR, 40 mg= 1 cap(s), Oral, Daily, 2 refills promethazine 12.5 mg Supp Toujeo Max SoloStar Zofran 4 mg Tab Allergies Bactrim (Vomiting) Cipro (Hives) Social History Alcohol - Denies Alcohol Use, 04/12/2022 Previous treatment: None., 05/05/2022 Substance Abuse - Denies Substance Abuse, 04/12/2022 Tobacco - Denies Tobacco Use, 04/12/2022 Former smoker, quit more (more content not included)... [facility] Comment on above: Result Comment: Elec tronically Signed By: Charissa Liu\.br\Date and Time Signed: 05/05/22 14:00 EST\.br\Electronically Co-Signed By: Ana SESAY MD\.br\Date and Time Co-Signed: 05/06/22 12:06 EST Ambulatory Visit Summaryon 1 07-05-2021 Ambulatory Visit Summary BINA CAMPOS :1975 Visit Date:05/05/2022 Ambulatory Visit Instructions Your Diagnosis Nausea and vomiting Bloody emesis Rectal bleed Diabetes Your Care Team Attending Physician - SHAMA ALVARES, Ana Primary Care Physician - LARS ALVARES, DAISY Referring Physician - YODIT COREA DO This Is Your Medications List omeprazole (omeprazole 40 mg Cap-DR) Contact prescribing physician if questions or concerns escitalopram (Lexapro 5 mg oral tablet) insulin glargine (Toujeo Max SoloStar) ondansetron (Zofran 4 mg Tab) promethazine (promethazine 12.5 mg Supp) Discharge Vitals Heart Rate (Peripheral) 86 Respiratory Rate 16 Blood Pressure 127/87 Height 176 cm Height 69 in Weight 86.0 kg Weight 189.2 lb BMI 27.76 What to do next You Need to Complete the Following NM Gastric Emptying Study, 05/05/22, Routine, Order for Future Visit, Transport Mode: Ambulatory, Reason: Other (please specify), Reason: Gastroparesis suspected, Bloody emesis [facility] Ambulatory Visit Summary DELMIREZAMEHRDAD SHORTB:1975 Visit Date:05/05/2022 Ambulatory Visit Instructions Your Diagnosis Nausea and vomiting Bloody emesis Rectal bleed Diabetes Your Care Team Attending Physician - SHAMA ALVARES, Ana Primary Care Physician - LARS ALVARES, DAISY Referring Physician - YODIT COREA DO This Is Your Medications List omeprazole (omeprazole 40 mg Cap-DR) Contact prescribing physician if questions or concerns escitalopram (Lexapro 5 mg oral tablet) insulin glargine (Toujeo Max SoloStar) ondansetron (Zofran 4 mg Tab) promethazine (promethazine 12.5 mg Supp) Discharge Vitals Heart Rate (Peripheral) 86 Respiratory Rate 16 Blood Pressure 127/87 Height 176 cm Height 69 in Weight 86.0 kg Weight 189.2 lb BMI 27.76 What to do next You Need to Complete the Following NM Gastric Emptying Study, 05/05/22, Routine, Order for Future Visit, Transport Mode: Ambulatory, Reason: Other (please specify), Reason: Gastroparesis suspected, Bloody emesis Normal [facility] Discharge Instructionson Discharge Instructions [id number]#[id number]:127 [facility] Comment on above: Other Comment: wrong folder Outside Recordson 04-27-2022 Outside Records [id number]#[id number]:127 [facility] Coding Summary.on 04-16-2022 Coding Summary. [id number] Gh0bWw +PGhlYWQ+RX7ZFXIzG16fgJIzm K9HO2aHXU1GHLAIGCKMKD2HMK4 yjVJ1JByuD8DsghKs PqfkpJVlEZ95EIb8QDG9lEosPW hctL5jnKBoR6z6IfXaUJ02fS48 BMeyNYNfTxX3BdRseedkvCIx D6qcStRxuRDyBuo+PHRhYmxlIH ysRQBcTMuqBMBlWlNufAoaMS8l Zs4rTGNsRULflImgxWMwLzPr y0tlCINdSEfiKJ3tbRpyM7CwaB K9PPCti2v0Ri47sLJ+PHRkIHN0 sIrxBFmcd740ZzGnw5nsBFE5 jEPgVZqlUHN9W73gj6Y7PABjIF AmTCA1pFL4zZ4btCjpofztN8Um eDLzNpV4GOJ4kWOxsS6biTdt yeonxS0mKtm+C65UIV9PPHROVV 7CQxk8P5NwIntdbZG+FY50MXVn GV01bKUjtFThm1owuIi8OwFg XVRkLFV8rIebUBmom9EfSNHpY3 6trVXjc4N7PWEkrFzvjYUsWlBw eQQ6rL6zWWilzzgvw8djiobo Qxfbp2xckf72vS33W37iTLlhLH XhXMM4FNQaVHRmmBquzh3bgY4n Ii8+EYtnn9elf6eglUk9QoEk HRHctdDulDepUXT8f4HnYr00E8 ZomEtij0JmAaw1xj53oMNyp9Y9 lOF7UUozTZNeqL0xNRcfLoY7 IIWaKhQhcL44cCZrGLtgOi8inP xhcUxmYD9qERKnmtkbBJSdhE4x AJZzcUWshAkfIN3qIOSbmqug y742ZeJcAPC2LUQcdVKnQ4NxvR 4zJpZgWUKlCLLdM8TcuPGkAEce M824ZZnxBrH2UEJkvcMyE2Dp MLFypLfpJlJ1v3X9Eb0Vp2Ecqp mjDTK7MOmvHFMtWmXuDuXsYkB3 M7KtWrc2XKGzeUbaUK3zO5Xx YJSwhvdiywkbvJM2WEBsZPZugS 00rIMlYCufMl6tw8Y7k868ISHb NBVxlB42Es8uqCmnDZQaoGDL wZ6jodjip8otandeXgNdNETwIB j3VHl7DKKzlTtsTvImTSU1JcA8 BRG7qZBtaF4ymLccknuwcN8n Oyc+B58hoA9uEWP0FZC5qxnqZF HxshBeZW06UG15X8NuJsoujPUs bGU+PXJmbzVedHjpGY9xNxMb q8nok8KjYEteD8OtZXXgPCtvZq z3YGDwYAR5jPR0oU3lJRJbZCoc d2F3bMN2T1YpodAypj2ef6mg KEXmKSetZ77ufQKcg4R5HNPpdF W2XLXsaNaxRmYqmW84Efj+PGNv yZnac0OmYsvex5czq6uasLh2 LtJeSVEcyiUqpOozTUR6e8LmHd 14I41bFLrmREYfOBYaGSEzUKZc nJncak6giW4sHy3+PGNvbCB3 gIV3aB5mRDGeQuC0OJmnM298Sg NetPAsLbtph7ryk6skwHc3SuWe TSAmgfOnqSbkIZK3n1HlTa88 I94dECsxQNTqABIqJULsTAWxrN forg9wfK1qKd8+LV2em9uwxx12 wM23zXL+GQMaZMS0zQecJMkh GHRfaV5tWKdaQdG5JVAjPcFhdK 54tOIpLGixGs0zvZhxaYjcDW5m ENGksqtso486ZaEza4mgPNSm rRKwSFtiRBS0T70jr1G4SNAyQZ TbTLY2bTR0sX0slEqzexvrtPAh vBbmpyScgPraSIznJHygS726 IHRvcDsnPlBhdGllbnQgTmFtZT d3U2HrOfq4HWMaaSzvPY8zoZXa RWlbPy4jpQyikHscYM7hCRYj cofhc816XkDgs0bcAERuySSuJA kkGYF4I44mb5L1ZEIwBEXbBPJ6 dRS5zO5adQbyawpoaVCulMmb ukMinZjfGQwmHIqgM519EQGixH ynNyLiqfDjQGUvaOP9CU95DA17 vEPzl4R5gMW1K0AyMSSrxeoy jhhahVS9YNVcVMQjhP89Kx2erS wtTf0yTCYcECD3CCQbzSLtI1Gu zX6xPdLiIBZiQGKbT1UaoHLk TWchC740GEbrNgK8MIIhcdWsT8 KgVQHlfHtkGhR9r4E5Yd7NY7Y6 MD05AE45eJVqu5E1dPQ4Z0Vl KPDxqaklliekfSW5ZENwZXUeuK 43Pn6haSnxKu5yHZKrCGU1ZEDr yTBcO4NlzS6iInEaYGFtVGHc Y1BaxMIaLIsmU811ZKqsJnA2WF HteiExU8NwJVFcaXslOeA1w9V2 Rg8CCPs1JJ94YD26uWAxk4K0 xRK8G9UuRVYodjrutnswbBD6CD DvMCKwvY26Dk4nqZkfAw8pMHHz ZRQ7FTPmtIVcG6VldI2hBnZn AUSbMKErL4CbhYLtCIwuC769TE szLbV7SNAaiiSiV7BfPVOasAmc NvU0y0E9Xv3LIBXbVU09RSN2 tXX9QX61OU83Z1UxYappeINoaA U+PHRhYmxlIHdpZHRoPScxMDAl BpRxbLghPT3wBh9oFVMbEAQm xPtxcRPuFpPdw5arTMGpQMecTN 9vmAueD0AnrGV3XCRbj4d6Bd20 N62cG1VzeIG+OQWmtIT5sDW1 fA1iDeFrIgT0HQxvI837FmLipK AvPawst7bwu3mbjCj0YfM1DUBj lrXwmUqeMWK1v2GlJq25Y25s IHdpZHRoPSIxNSUiIHZhbGlnbj 3hgI6oJy6+RONepIS4cYV7eT6v FaVjBdG1ORkaV575EfGkoXRm Gcjmv1jyq5uisIn0LkFbUODocq JzoFghKYK9g3KzIy53K1QntTmi b7VaJsu5tb61hRQxv8F7uHO4 R1NmEEYugpqvtFLipGfhLW3jBZ EowckjLIEfpB2lNDXrS6u6ZuHz MeJ2INtsJ8JmjkN6UYXgfNNt QXhjOAH1Y94uu7Z4JKDoLHIkOE K1zKZ7oO9sqJekhskneVKtjHcl qoMlfNjcENkyOLpnY628FIZc jUajGUYxuL8hWKGzyUGasZocVL 4wNTBpbjsnPkJJQVMsIFNIRUxM AOt0I1TmMer8UMOolDxuUO7t cWMuNWszLf0jpMjioPioNT7eLG BvrdjmUVVqjL5zXXActLMvqDfc MU3pMEMboyfwh824HcLoASU7 MJNehEJzA2ZimO4iBcCnOLMbMH HcE7DyxGVkRCseJ197OUenHwD5 WIItxrGvS5ZiFQSxcIafGgE9 i7G0Go8kPk9vTD5bREz9PW46WX 02kSOab3G6zOS4E7YxMDNgnuak ondweHV8NEPhVAFyfI80aBAe XXwiPj2vn6S0h877DMJaMIDskV 83Rj5acJgfWBMqsCNYiB2bstds w3ffojmtUfNwSKMiUEo4YCq0 IBGacCogVqNpMMJ4MnK9SCM1eZ TlgC0lmFhpttqchX8gRle+NDYg LDGttzQ3M6OaFuo2YJLszQkw WO6bbOMsJEwlGv3mpNwfxYmwHH 8qMRQflpinWJVpqD6aKNOkeNOm fZtuTJ0fRXCdgarmp824JgZe VYD6BSGzqKCcE2YqaP5tBfOiEG ObZAZwT0ImfRVkELzyU142PYkx XjH8KVTbbgNbN9WnOHVcgCtu QsR4o3K4Qn0UTA3hoZC3S0WtBx u8SZDznEjuQP0ppFLpUIloZf6s oSgjzIfoVG7yJXWuulxuKSOa tJ9qORUkhQRwaSnpGQ0oGIQpmv qbf852OjKmIIJ3VZHbyHUkU7Lp wE7wIoLcMQWzJPXxH6PrlNDe BOxkB540MTkpRxF3URBhkmEgZ3 VnIDXjbUsqKqF3v4H1Xk2QiVAt P2JeE4a5P8LfUmjeeZZ+PC90 CDQyKT18mFTrvDDla1slsPk9Lw UeLOPsCYI4cImiGKtni8NpUGJb X78ytHVli6W5UGQefPhrxVOp SnSvcHU7bC3vMNyfcvndu2bbxt yoKghkl6ageo80sR36Q72aCSbk WIRiIVFeXAWoBPJprBpdvj6o xQ1bPy5+FCNvbRX5jOK1oD5oLq YmGzE9FPwlO820JkIrpTSvFbdc h8tiw8rhmXe3QeTuWEJnksCj mCqvPOU1a9FuBw66I41wUUobYI WhCRFnSFIfSTIlvAsxps8srU3d Ii8+CR8pv7ogxo99pA50yIT+ NXIbBZK6tIwgTEcqKEOaiH7kCV bzFqZ2CFZmQbBgcF23qDTxWBwe Mq0bfUcokZhrYT7gAVEnrdzw u025XpIqw7jvIYZiaKQmJLpgDP A4S80ur2B4VOQmJLZvCKY7zEP8 eL6wmFctbpgtnSPrjKlgogPy iMgpBYzaNTppS549KLTkkFtkVf YusVQvW2erghMPLC3sVwkbwRL+ SPSvZHZ6iPtjUTaoRKZbdW2h JKRrD6r6QxQwUyI7WNbdA6Bkbe A9ICNqwMAtLBLxfGUGeF2piywt g3qaojozHiQdOWEzLIx6OCp9 OXSveKleUlFdAEI0ZsP4PGC8aA NwiY4ffYnocczxbL1aEvi+RklO OjwvdGQ+SIGtTTH0hQmgYDnb KXGckP1zAASzF0f3XlCzYyM5TE wqA5EjfgL4LTNhtARdQYRcfJCE cI1aukkky1pfcvtlStWcMGLf YKe8UYg3XXIhcQosOsMiAKS3Xw O2TPZ4aKWfvE9xdRyqjkwwrQ4z Oyc+TVJOOjwvdGQ+PHRkIHN0 iZxmHDzvPKPqrY2yGOOfN2p2Rk BcOwF3UUjvZ7EahmW2OYXbxRCt YACxtRFAtB2rkuiri7mfitom PnQrNQYmLNn4RWb5OTTnrNcuCg MvIIT5GwN6NVJ0mDNltE5hdXdt dutefX3cDvm+CGM0THG0UQ86 SI83I4RaWabyuKStuJB+PHRhYm xlIHdpZHRoPScxMDAlJyBzdHls UJ2mYp2yPYTlKUSuhSdtmYBd OiBj (more content not included)... Normal [facility] Albumin [Mass/volume] in Ser um or PlasmaOrdered By: Leyla Savage on 04-15-2022 Albumin [Mass/Vol] 4.1 g/dL 3.2-5.5 [facility] Amphetamine Screen Ql (U)Ord ered By: Leyla Savage on 04-15-2022 Amphetamines Ql (U) Negative Negative [facility] Automated erythrocytes count in urine sediment (number/area)Ordered By: Leyla Savage on 04-15-2022 RBC Auto (Urine sed) [#/Area] 5-9 [HPF] 0-4 [facility] Automated leukocytes count i n urine sediment (number/area)Ordered By: Leyla Savage on 04-15-2022 WBC Auto (Urine sed) [#/Area] 1-2 [HPF] 0-4 [facility] Barbiturates [Presence] in U rineOrdered By: Leyla Savage on 04-15-2022 Barbiturates Ql (U) Negative Negative [facility] Basophils Auto (Bld) [#/Vol] Ordered By: Leyla Savage on 04-15-2022 Basophils (Bld) [#/Vol] 0.1 10*3/uL 0.0-0.2 [facility] Basophils/100 WBC Auto (Bld) Ordered By: Leyla Savage on 04-15-2022 Basophils/100 WBC (Bld) 0.5 % . [facility] Benzodiazepines [Presence] i n UrineOrdered By: Leyla Savage on 04-15-2022 Benzodiazepines Ql (U) Negative Negative [facility] Beta-hydroxybutyric acid lara surementOrdered By: Leyla Savage on 04-15-2022 Beta hydroxybutyrate [Mass/Vol] 2.33 mmol/L 0.05-0.27 [facility] Bilirubin Test strip Ql (U)O rdered By: Leyla Savage on 04-15-2022 Bilirubin Ql (U) Negative Negative [facility] Cannabinoids [Presence] in U rine by Screen methodOrdered By: Leyla Savage on 04-15-2022 Cannabinoids Screen Ql (U) Negative Negative [facility] Comment on above: These are unconfirme d results and should not be used for legal purposes. Drug Cut-Off Concentration: AMPH 1000 ng/mL NMIESH 200 ng/mL SHERRY 200 ng/mL COCM 300 ng/mL OP 300 ng/mL PCP 25 ng/mL THC 20 ng/mL Color Auto (U)Ordered By: Shashi Savage on 04-15-2022 Color (U) Yellow Yellow [facility] Creatinine and Glomerular fi ltration rate.predicted panel (S/P/Bld)Ordered By: Leyla Savage on 04-15-2022 Creatinine [Mass/Vol] 0.82 mg/dL 0.44-1.03 [facility] Eosinophils Auto (Bld) [#/Vo l]Ordered By: Leyla Savage on 04-15-2022 Eosinophils (Bld) [#/Vol] 0.0 10*3/uL 0.0-0.45 [facility] Eosinophils/100 WBC Auto (Bl d)Ordered By: Leyla Savage on 04-15-2022 Eosinophils/100 WBC (Bld) 0.1 % . [facility] Erythrocyte distribution wid th Auto (RBC) [Ratio]Ordered By: Leyla Savage on 04-15-2022 Erythrocyte distribution width (RBC) [Ratio] 13.1 % 11.9-15.3 [facility] Estimated glomerular filtrat ion rate (GFR) non- AmericanOrdered By: Leyla Savage on 04-15-2022 GFR/1.73 sq M.predicted among non-blacks MDRD (S/P/Bld) [Vol rate/Area] > 60 mL/Min [facility] Globulin Calc (S) [Mass/Vol] Ordered By: Leyla Savage on 04-15-2022 Globulin (S) [Mass/Vol] 3.1 g/dL [facility] Glucose Glucometer (BldC) [M ass/Vol]Ordered By: Leyla Savage on 04-15-2022 Glucose [Mass/Vol] 350 mg/dL [facility] Comment on above: Random Glucose Refer ence Range is dependent on time and content of last meal. Glucose of more than 200 mg/dL in a nonstressed, ambulatory subject supports the diagnosis of Diabetes Mellitus. HCG ( test) IA.rapi d Ql (U)Ordered By: Leyla Savage on 04-15-2022 HCG ( test) Ql (U) Negative [facility] Hematocrit Auto (Bld) [Volum e fraction]Ordered By: Leyla Savage on 04-15-2022 Hematocrit (Bld) [Volume fraction] 41.0 % 34.0-46.4 [facility] Hemoglobin [Mass/volume] in BloodOrdered By: Leyla Savage on 04-15-2022 Hemoglobin (Bld) [Mass/Vol] 13.7 g/dL 11.8-15.4 [facility] Ketones Auto test strip (U) [Mass/Vol]Ordered By: Leyla Savage on 04-15-2022 Ketones (U) [Mass/Vol] 3+ Negative [facility] Laboratory - Chemistry and C hemistry - challengeOrdered By: Leyla Savage on 04-15-2022 CO2 [Moles/Vol] 21.8 mmol/L 24.0-29.0 [facility] HCO3 (Bld) [Moles/Vol] 20.9 mmol/L 23.0-29.0 [facility] Lipase [Catalytic activity/Vol] 31.0 U/L 22-51 [facility] Laboratory - Drug toxicology Ordered By: Leyla Savage on 04-15-2022 Opiates Ql (U) Negative Negative [facility] Laboratory - Hematology and Cell countsOrdered By: Leyla Savage on 04-15-2022 Nucleated RBC/100 WBC (Bld) [Ratio] 0.1 % 0-0.5 [facility] Laboratory - UrinalysisOrder ed By: Leyla Savage on 04-15-2022 Hyaline casts LM Ql (Urine sed) 0-8 [LPF] 0-8 [facility] Leukocytes [#/volume] in Blo od by Automated countOrdered By: Leyla Savage on 04-15-2022 WBC (Bld) [#/Vol] 10.5 10*3/uL 4.5-11.0 [facility] Lymphocytes Auto (Bld) [#/Vo l]Ordered By: Leyla Savage on 04-15-2022 Lymphocytes (Bld) [#/Vol] 1.4 10*3/uL 1.00-4.8 [facility] Lymphocytes/100 WBC Auto (Bl d)Ordered By: Leyla Savage on 04-15-2022 Lymphocytes/100 WBC (Bld) 13.5 % . [facility] MCH Auto (RBC) [Entitic mass ]Ordered By: Leyla Savage on 04-15-2022 MCH (RBC) [Entitic mass] 27.1 pg 24.7-34.3 [facility] MCHC Auto (RBC) [Mass/Vol]Or dered By: Leyla Savage on 04-15-2022 MCHC (RBC) [Mass/Vol] 33.3 g/dL 32.0-35.0 [facility] MCV Auto (RBC) [Entitic vol] Ordered By: Leyla Savage on 04-15-2022 MCV (RBC) [Entitic vol] 81.4 fL 80-100 [facility] Monocytes Auto (Bld) [#/Vol] Ordered By: Leyla Savage on 04-15-2022 Monocytes (Bld) [#/Vol] 0.5 10*3/uL 0.0-0.8 [facility] Monocytes/100 WBC Auto (Bld) Ordered By: Leyla Savage on 04-15-2022 Monocytes/100 WBC (Bld) 5.0 % . [facility] Neutrophils Auto (Bld) [#/Vo l]Ordered By: Leyla Savage on 04-15-2022 Neutrophils (Bld) [#/Vol] 8.5 10*3/uL 1.8-7.7 [facility] Neutrophils/100 WBC Auto (Bl d)Ordered By: Leyla Savage on 04-15-2022 Neutrophils/100 WBC (Bld) 80.9 % . [facility] Nitrite Test strip Ql (U)Ord ered By: Leyla Savage on 04-15-2022 Nitrite Ql (U) Negative Negative [facility] No Panel InformationOrdered By: Leyla Savage on 04-15-2022 Bedside Glucose Comment Glu2: cleaned meter [facility] Blood Gas Critical Value See comment [facility] Comment on above: Critical Value keller d on: 04/15/2022 at 17:12 Blood Gas Sample Site Venous [facility] FiO2 21 % [facility] Venous Blood Base Excess -1.0 mmol/L -3.0-3.0 [facility] Venous Blood Oxygen Content 7.4 mmol/L 6.6-9.7 [facility] Venous Blood Oxygen Saturation 80.0 % 73.0-76.0 [facility] Venous Blood Partial Pressure CO2 28.0 mm[Hg] 38.0-50.0 [facility] Venous Blood Partial Pressure O2 39.2 mm[Hg] 35.0-45.0 [facility] Venous Blood pH 7.49 7.32-7.43 [facility] Estimated GFR () > 60 mL/Min [facility] Comment on above: GFR estimated refere nce range: According to KDOQI guidelines, <60 ml/min/1.73m2 is sufficient to diagnose a patient with chronic kidney disease. Pharmacy Creatinine Clearance (Chem 106.64 [facility] Phencyclidine Screen Ql (U)O rdered By: Leyla Savage on 04-15-2022 Phencyclidine Ql (U) Negative Negative [facility] Platelet mean volume Auto (B ld) [Entitic vol]Ordered By: Leyla Savage on 04-15-2022 Platelet mean volume (Bld) [Entitic vol] 8.5 fL 6.3-10.7 [facility] Platelets Auto (Bld) [#/Vol] Ordered By: Leyla Savage on 04-15-2022 Platelets (Bld) [#/Vol] 456 10*3/uL 150-450 [facility] Protein Auto test strip (U) [Mass/Vol]Ordered By: Leyla Savage on 04-15-2022 Protein (U) [Mass/Vol] 100 mg/dL Negative [facility] Protein [Mass/volume] in Ser um or PlasmaOrdered By: Leyla Savage on 04-15-2022 Protein [Mass/Vol] 7.2 g/dL 6.1-7.9 [facility] RBC Auto (Bld) [#/Vol]Ordere d By: Leyla Savage on 04-15-2022 RBC (Bld) [#/Vol] 5.03 10*6/uL 3.60-5.00 [facility] Serum or plasma alanine rabago otransferase measurement without P-5'-P (enzymatic activiOrdered By: Leyla Savage on 04-15-2022 ALT No additional P-5'-P [Catalytic activity/Vol] 20 U/L 10-60 [facility] Serum or plasma albumin/glob ulin mass ratioOrdered By: Leyla Savage on 04-15-2022 Albumin/Globulin [Mass ratio] 1.3 {ratio} [facility] Serum or plasma alkaline lalit sphatase measurement (enzymatic activity/volume)Ordered By: Leyla Savage on 04-15-2022 ALP [Catalytic activity/Vol] 77 U/L 32-92 [facility] Serum or plasma anion gap de terminationOrdered By: Leyla Savage on 04-15-2022 Anion gap [Moles/Vol] 23.1 mmol/L 6.0-15.0 [facility] Serum or plasma aspartate am inotransferase measurement (enzymatic activity/volume)Ordered By: Leyla Savage on 04-15-2022 AST [Catalytic activity/Vol] 21 U/L 10 [facility] Serum or plasma calcium pedro urement (mass/volume)Ordered By: Leyla Savage on 04-15-2022 Calcium [Mass/Vol] 10.6 mg/dL 8.2-10.2 [facility] Serum or plasma chloride lara surement (moles/volume)Ordered By: Leyla Savage on 04-15-2022 Chloride [Moles/Vol] 96 mmol/L 95-114 [facility] Serum or plasma glucose pedro urement (mass/volume)Ordered By: Leyla Savage on 04-15-2022 Glucose [Mass/Vol] 364 mg/dL 70-100 [facility] Comment on above: ADA recommended refe rence rangeRandom Glucose Reference Range is dependent on time and content of last meal. Glucose of more than 200 mg/dL in a nonstressed, ambulatory subject supports the diagnosis of Diabetes Mellitus. Serum or plasma potassium me asurement (moles/volume)Ordered By: Leyla Savage on 04-15-2022 Potassium [Moles/Vol] 3.9 mmol/L 3.5-5.1 [facility] Serum or plasma sodium measu rement (moles/volume)Ordered By: Leyla Savage on 04-15-2022 Sodium [Moles/Vol] 135 mmol/L 136-146 [facility] Serum or plasma total biliru bin measurement (mass/volume)Ordered By: Leyla Savage on 04-15-2022 Bilirubin [Mass/Vol] 1.1 mg/dL 0.3-1.2 [facility] Serum or plasma total carbon dioxide measurement (moles/volume)Ordered By: Leyla Savage on 04-15-2022 CO2 [Moles/Vol] 19.8 mmol/L 22.0-30.0 [facility] Serum or plasma urea nitroge n measurement (mass/volume)Ordered By: Leyla Savage on 04-15-2022 Urea nitrogen [Mass/Vol] 12 mg/dL 9-23 [facility] Specific gravity Auto test s trip (U) [Rel density]Ordered By: Leyla Savage on 04-15-2022 Specific gravity (U) [Rel density] 1.025 1.001-1.03 0 [facility] Squamous epithelial cells de tection in urine sediment by light microscopyOrdered By: Leyla Savage on 04-15-2022 Epithelial cells.squamous LM Ql (Urine sed) 3-4 [HPF] 0-2 [facility] Urine bacteria detection by automated methodOrdered By: Leyla Savage on 04-15-2022 Bacteria Auto Ql (U) None seen None Seen [facility] Urine clarity by refractomet ry automatedOrdered By: Leyla Savage on 04-15-2022 Clarity Refractometry automated (U) Clear Clear [facility] Urine cocaine detectionOrder ed By: Leyla Savage on 04-15-2022 Cocaine Ql (U) Negative Negative [facility] Urine glucose measurement by automated test strip (mass/volume)Ordered By: Leyla Savage on 04-15-2022 Glucose Auto test strip (U) [Mass/Vol] >=1000 mg/dL Normal [facility] Urine hemoglobin detection b y automated test stripOrdered By: Leyla Savage on 04-15-2022 Hemoglobin Auto test strip Ql (U) Trace Negative [facility] Urine leukocyte esterase det ection by automated test stripOrdered By: Leyla Schwabgeorge on 04-15-2022 Leukocyte esterase Auto test strip Ql (U) Negative Negative [facility] Urobilinogen Auto test strip (U) [Mass/Vol]Ordered By: Leyla Savgae on 04-15-2022 Urobilinogen (U) [Mass/Vol] Normal mg/dL Normal [facility] pH Auto test strip (U)Ordere d By: Leyla Savage on 04-15-2022 pH (U) 7.5 [pH] 5.0-9.0 [facility] Physician Referralon 022 Physician Referral [id number]:127 Normal [facility] B hCG Qualon 04-13-2022 Beta hCG Ql Negative Normal [facility] Comment on above: Performed By: #### [id number] ####[facility] [id number] [place] [address] Discharge Instructionson Discharge Instructions [id number]:127 Normal [facility] ED Clinical Summaryon 2021 ED Clinical Summary (Inserted Image. Hali ble to display) [place] [id number] ED Clinical Summary Person Information Name: [facility] Age[facility] 46 Years : 1975 Sex: Female Language: Bahraini PCP: DAISY SOUSA MD Marital Status: Visit Id: Visit Reason: Abdominal pain; Syncope/Near syncope; Vomiting; NAUESA, EXTERME VOMMITING, PT DOCTOR SENT THER OVER Speciality: Acuity: 2 Enc Type: Emergency Med Service: Emergency Arrival: 04/12/2022 17:47:46 Discharge: 04/13/2022 00:37:54 LOS: 000 06:50 Checkin: 04/12/2022 17:47:46 Checkout: 04/13/2022 00:37:54 Dispo Type: Home (Routine DC) EVENTS: Event Name Event Status Request Date/Time Start Date/Time Complete Date/Time Arrive Complete 04/12/2022 17:47:46 04/12/2022 17:47:46 04/12/2022 17:47:46 Document Home Meds Request 04/12/2022 17:47:46 Triage Complete 04/12/2022 17:47:46 04/12/2022 18:18:20 04/12/2022 18:18:20 Registration Complete 04/12/2022 18:01:39 04/12/2022 18:01:39 04/12/2022 18:01:39 Reg Complete Request 04/12/2022 18:01:39 Reg Bed Request Complete 04/12/2022 18:01:39 04/12/2022 18:01:39 04/12/2022 18:01:39 EKG Complete 04/12/2022 18:17:40 04/12/2022 18:40:45 Pending Labs Request 04/12/2022 18:19:40 Lab Request 04/12/2022 18:19:40 Urine Collect Request 04/12/2022 18:19:40 Bed Assign Complete 04/12/2022 19:54:13 04/12/2022 19:54:13 04/12/2022 19:54:13 Dr Exam Complete 04/12/2022 19:54:13 04/12/2022 19:58:32 04/12/2022 19:58:32 RN Exam Complete 04/12/2022 19:54:13 04/12/2022 20:11:17 04/12/2022 20:11:17 Pending Labs Complete 04/12/2022 19:57:45 04/12/2022 19:57:45 04/12/2022 20:21:39 Lab Complete 04/12/2022 19:57:45 04/12/2022 19:57:45 04/12/2022 20:21:39 Registration Complete 04/12/2022 19:58:32 04/12/2022 21:54:51 04/12/2022 21:54:51 Dr Exam Complete 04/12/2022 19:59:07 04/12/2022 19:59:07 04/12/2022 19:59:07 Pending Labs Cancel 04/12/2022 20:10:31 04/12/2022 21:19:31 Meds Admin Complete 04/12/2022 20:10:31 04/12/2022 20:26:04 X-Ray Complete 04/12/2022 20:11:51 04/12/2022 20:39:32 04/12/2022 20:49:55 Meds Admin Complete 04/12/2022 20:12:20 04/12/2022 20:26:05 Pending Labs Complete 04/12/2022 20:16:42 04/12/2022 20:16:42 04/12/2022 20:16:50 Lab Complete 04/12/2022 20:16:42 04/12/2022 20:16:42 04/12/2022 20:16:50 Pending Labs Complete 04/12/2022 20:20:24 04/12/2022 20:20:24 04/12/2022 20:56:17 Pending Labs Cancel 04/12/2022 20:23:21 04/12/2022 23:20:52 Lab Cancel 04/12/2022 20:23:21 04/12/2022 23:20:52 Urine Collect Cancel 04/12/2022 20:23:21 04/12/2022 23:20:52 Wet Read Request 04/12/2022 20:49:55 Pending Labs Complete 04/12/2022 21:29:07 04/13/2022 00:06:27 Pending Labs Complete 04/12/2022 23:20:04 04/12/2022 23:20:04 04/12/2022 23:41:52 Meds Admin Complete 04/13/2022 00:00:03 04/13/2022 00:34:38 Discharge Complete 04/13/2022 00:27:02 04/13/2022 00:38:10 04/13/2022 00:38:10 Transfer Complete 04/13/2022 00:38:10 04/13/2022 00:38:10 04/13/2022 00:38:10 ADDRESS: [address] [facility] [id number] PHYS DOC NOTES: MEDICAL INFORMATION: Prescriptions Given: New Medications [facility], [address] [place] [id number], [phone] dicyclomine (dicyclomine 10 mg Cap) 1 Capsules By Mouth 4 times a day for 7 Days. Refills: 0. promethazine (promethazine 25 mg Tab) 1 Tablets By Mouth every 6 hours for 7 Days. Refills: 0. PATIENT EDUCATION INFORMATION: Instructions: Near-Syncope; Syncope; Nausea and Vomiting, Adult Follow up: With: Address: When: Paulino Elkins [address] [place] [address] [place] [address] [place] (1) In 3 days 04/15/2022 With: Address: When: DAISY SOUSA [address] [facility] [address], FAX [phone] [place] [address] [place] (1) In 3 days 04/15/2022 Comments: Follow-up with your primary care provider in 3 to 5 days. If symptoms worsen, do not improve, or new symptoms arise please report back to emergency department for further evaluation. DIAGNOSIS: Syncope; Vomiting Normal [facility] ED Note-Physicianon 04-13-20 ED Note-Physician Basic Information Time Seen: Ina SHORT Kristajaquelin Anderson 04/12/2022 19:58 Chief Complaint pt reports progressively worsening vomiting for 2.5 weeks. was seen by [facility] er this morning. had syncopal event this morning. History of Present Illness A 46-year-old female reports the emergency department with a chief complaint of nausea and vomiting. She states that this nausea and vomiting has been worsening over the last 2-1/2 weeks. She states that she also had a syncopal episode this morning where she passed out. Reports that she has had a hard time to keep things down. She states that she did go to [facility] emergency department this morning, did have a work-up performed, but they just told her that she was dehydrated and sent her on her way. She states that she believes that there is really something wrong with her. States that she still is not able to control her vomiting and has vomited multiple times. She reports that all she has been taking Zofran, was not working for her. States that she is also having some abdominal pain. Denies any urinary symptoms. Denies any changes in bowel habits. Denies any chest pain or shortness of breath Review of Systems A 10 point review of systems is negative except as noted above. Medical and Surgical History: Reviewed and noted Social history: Lives at home Family History: Reviewed. Tobacco: Denies Physical Exam Vitals & Measurements T: 37.0 ?C(Oral) HR: 86(Peripheral) RR: 16 BP: 118/69 SpO2: 99% General: The patient appears well and in no apparent distress. Patient is resting comfortably on bed. Afebrile Skin: Warm, dry, no pallor noted. No rashes noted Head: Normocephalic, atraumatic Neck: No JVD Eye: PERRLA, EOMI ENT: Moist mucus membranes. Pharynx pink moist no erythema or exudates Cardiovascular: Regular rate normal peripheral perfusion. Radial pulse +2 bilaterally Respiratory: No respiratory distress no accessory muscle use no obvious audible wheezing. Lung sounds clear to auscultation Chest Wall: no deformity Musculoskeletal: normal ROM, no deformity, no swelling GI: No obvious distention abdomen is soft, but patient reports mild tenderness throughout the abdominal exam. No guarding or rebound tenderness is noted. No CVA tenderness bilaterally Neurological: A&O moves all extremities equal strength and symmetry. Full sensations Psychiatric: Cooperative and appropriate Medical Decision Making 46-year-old female reports the emergency department with chief complaint of nausea, vomiting, and a syncopal episode. Patient reports that is always this morning and did go to [facility] emergency department for evaluation. States that she was had a full evaluation, but they sent her home and her that she was just dehydrated. She reports that she still vomiting even after the Zofran they gave her. She states that she believes this is still something out with her. Abdominal exam was relatively benign. No rebound tenderness or guarding noted. No CVA tenderness. Due to her complaints, I did order abdominal lab work as well as a troponin level. Patient's troponin level was elevated at 37 at [facility]. We were able to obtain the records from there. . It is also elevated at 37 here emergency department. Repeat troponin down trended to 35. Patient was given Phenergan for her symptoms, and was much improved after this. She was able to tolerate p.o. fluids here in emergency department. Lab work was reviewed noted that showed no electrolyte abnormalities. Chest x-ray was also negative. Based on the patient's symptoms, we were comfortable discharging patient home. Patient will be sent home with Phenergan. Follow-up with your primary care provider in 3 to 5 days. If symptoms worsen, do not improve, or new symptoms arise please report back to emergency department for further evaluation. The patient was understanding and agreeable to plan moving forward. Heart Score for Major Cardiac Event History: Example factors for history - pattern of chest pain, onset, duration, relation with exercise, stress or cold, localization, concominant symptoms. reaction to sublingual nitrates, [] Highly suspicious +2 [] Moderately suspicious +1 [x] Slightly suspicious 0 EKG: [] Significant ST-Depression +2 [] Non specific repolarization disturbance +1 [x] Normal 0 Age: [] >= 65 +2 [x] 45-65 + 1 [] <45 0 Risk Factors: (HLD, HTN, DM, Cigarette Smoking, Pos Family Hx, Obesity) [] >3 risk factors or hx of atheroslerotic disease + 2 [x 1-2 risk factors + 1 [] No risk factors known 0 Troponin: [] >= 3X normal + 2 [x 1-3X normal + 1 [] <= Normal 0 ------ [x 0-3 Points 0.9 - 1.7% risk of major adverse cardiac event in 6 weeks [] 4-6 Points 12-16.6% risk of major adverse cardiac event in 6 weeks [] 7-10 Points 50-65% risk of major adverse cardiac event in 6 weeks ------ [x 0-3 Points w (more content not included)... Normal [facility] Comment on above: Result Comment: Elec tronically Signed By: Clarence Brady PA-C\.br\Date and Time Signed: 04/13/22 00:00 EDT\.br\Electronically Co-Signed By: Collette Buckley DO\.br\Date and Time Co-Signed: 04/13/22 00:29 EDT ED Patient Education Noteon 04-13-2022 ED Patient Education Note Gastroenterology Nausea and Vomiting, Adult Nausea is the feeling that you have an upset stomach or that you are about to vomit. Vomiting is when stomach contents are thrown up and out of the mouth as a result of nausea. Vomiting can make you feel weak and cause you to become dehydrated. Dehydration can make you feel tired and thirsty, cause you to have a dry mouth, and decrease how often you urinate. Older adults and people with other diseases or a weak disease-fighting system (immune system) are at higher risk for dehydration. It is important to treat your nausea and vomiting as told by your health care provider. Follow these instructions at home: Watch your symptoms for any changes. Tell your health care provider about them. Follow these instructions to care for yourself at home. Eating and drinking ? Take an oral rehydration solution (ORS). This is a drink that is sold at pharmacies and retail stores. ? Drink clear fluids slowly and in small amounts as you are able. Clear fluids include water, ice chips, low-calorie sports drinks, and fruit juice that has water added (diluted fruit juice). ? Eat bland, eaet-jj-ggzxxz foods in small amounts as you are able. These foods include bananas, applesauce, rice, lean meats, toast, and crackers. ? Avoid fluids that contain a lot of sugar or caffeine, such as energy drinks, sports drinks, and soda. ? Avoid alcohol. ? Avoid spicy or fatty foods. General instructions ? Take hkxc-wqp-dsoawhh and prescription medicines only as told by your health care provider. ? Drink enough fluid to keep your urine pale yellow. ? Wash your hands often using soap and water. If soap and water are not available, use hand plant utilities engineer. ? Make sure that all people in your household wash their hands well and often. ? Rest at home while you recover. ? Watch your condition for any changes. ? Breathe slowly and deeply when you feel nauseated. ? Keep all follow-up visits as told by your health care provider. This is important. Contact a health care provider if: ? Your symptoms get worse. ? You have new symptoms. ? You have a fever. ? You cannot drink fluids without vomiting. ? Your nausea does not go away after 2 days. ? You feel light-headed or dizzy. ? You have a headache. ? You have muscle cramps. ? You have a rash. ? You have pain while urinating. Get help right away if: ? You have pain in your chest, neck, arm, or jaw. ? You feel extremely weak or you faint. ? You have persistent vomiting. ? You have vomit that is bright red or looks like black coffee grounds. ? You have bloody or black stools or stools that look like tar. ? You have a severe headache, a stiff neck, or both. ? You have severe pain, cramping, or bloating in your abdomen. ? You have difficulty breathing, or you are breathing very quickly. ? Your heart is beating very quickly. ? Your skin feels cold and clammy. ? You feel confused. ? You have signs of dehydration, such as: ? Dark urine, very little urine, or no urine. ? Cracked lips. ? Dry mouth. ? Sunken eyes. ? Sleepiness. ? Weakness. These symptoms may represent a serious problem that is an emergency. Do not wait to see if the symptoms will go away. Get medical help right away. Call your local emergency services (911 in the [place] Do not drive yourself to the hospital. Summary ? Nausea is the feeling that you have an upset stomach or that you are about to vomit. As nausea gets worse, it can lead to vomiting. Vomiting can make you feel weak and cause you to become dehydrated. ? Follow instructions from your health care provider about eating and drinking to prevent dehydration. ? Take fqpo-bjh-vxjspdb and prescription medicines only as told by your health care provider. ? Contact your health care provider if your symptoms get worse, or you have new symptoms. ? Keep all follow-up visits as told by your health care provider. This is important. This information is not intended to replace advice given to you by your health care provider. Make sure you discuss any questions you have with your health care provider. Document Released: 06/13/2006 Document Revised: 10/05/2019 Document Reviewed: 11/21/2018 [employer] Patient Education ? 2019 [employer]. Neurology Near-Syncope Near-syncope is when you suddenly feel like you might pass out (faint), but you do not actually lose consciousness. This may also be referred to as presyncope. During an episode of near-syncope, you may: ? Feel dizzy, weak, or light-headed. ? Feel nauseous. ? See all white or all black in your field of vision, or see spots. ? Have cold, clammy skin. This condition is caused by a sudden decrease in blood flow to the brain. This decrease can result from various causes, but most of those causes are not dangerous. However, near-syncope may be a sign of a serious medical pro (more content not included)... Normal [facility] ED Patient Summaryon 022 ED Patient Summary (Inserted Image. Hali ble to display) [address] [address] Patient Discharge Instructions Person Information Name: BINA CAMPOS Age: 46 Years Arrival Date: 04/12/2022 17:47:46 Discharge Diagnosis: Syncope; Vomiting Primary Care Physician: DAISY SOUSA MD Provider Information Primary Provider: Collette Buckley DO Advanced Mixer Helper:None The exam and treatment you received in the Emergency Department were for an urgent problem and are not intended as complete care. It is important that you follow up with a doctor, nurse practitioner, or physician?s assistant manager pt for ongoing care. If your symptoms become worse or you do not improve as expected and you are unable to reach your usual health care provider, you should return to the Emergency Department. We are available 24 hours a day. BINA CAMPOS has been given the following list of patient education materials, prescriptions and follow-up instructions: Follow-up Instructions: With: Address: When: Paulino Elkins [address] [place] [address] Business (1) In 3 days 04/15/2022 With: Address: When: DAISY SOUSA [address] , [address], FAX [phone] [place] [address] [address] (1) In 3 days 04/15/2022 Comments: Follow-up with your primary care provider in 3 to 5 days. If symptoms worsen, do not improve, or new symptoms arise please report back to emergency department for further evaluation. In the event that this physician does not participate in your insurance network, please consult with your insurance company to find a nearby participating provider. Patient Education Materials: Near-Syncope; Syncope; Nausea and Vomiting, Adult A MESSAGE TO ALL PATIENTS REGARDING OPIOIDS PRESCRIPTION OPIOIDS: WHAT YOU NEED TO KNOW Prescription opioids can be used to help relieve cluzhvmw-xa-chsuks pain and are often prescribed following a surgery or injury, or for certain health conditions. These medications can be an important part of the treatment but also come with serious risks. It is important to work with your healthcare provider to make sure you are getting the safest, most effective care. WHAT ARE THE RISKS AND SIDE EFFECTS OF OPIOID USE? Prescription opioids carry serious risks of addiction and overdose, especially with prolonged use. An opioid overdose, often marked by slowed breathing, can cause sudden . The use of prescription opioids can have a number of side effects as well, even when taken as directed: ? Tolerance?meaning you might need to take more of the medication for the same pain relief ? Physical dependence?meaning you have symptoms of withdrawal when a medication is stopped ? Increased sensitivity to pain ? Constipation ? Nausea, vomiting, and dry mouth ? Sleepiness and dizziness ? Confusion ? Depression ? Low levels of testosterone that can result in lower sex drive, energy, and strength ? Itching and sweating RISKS ARE GREATER WITH: ? History of drug misuse, substance use disorder, or overdose ? Mental health conditions (such as depression or anxiety) ? Sleep apnea ? Older age (65 years and older) ? Avoid alcohol while taking prescription opioids. Also, unless specifically advised by your health care provider, medications to avoid include: ? Benzodiazepines (such as Xanax or Valium) ? Muscle relaxants (such as Soma or Flexeril) ? Hypnotics (such as Ambien or Lunesta) ? Other prescription opioids KNOW YOUR OPTIONS Talk to your health care provider about ways to manage your pain that don?t involve prescription opioids. Some of these options may actually work better and have fewer risks and side effects. Options may include: ? Pain relievers such as acetaminophen, ibuprofen, and naproxen ? Some medication that are also used for depression or seizures ? Physical therapy and exercise ? Cognitive behavioral therapy, a psychological, goal-directed approach, in which patients learn how to modify physical, behavioral, and emotional triggers of pain and stress. IF YOU ARE PRESCRIBED OPIOIDS FOR PAIN: ? Never take opioids in greater amounts or more often than prescribed. ? Follow up with your primary health care provider. o Work together to create a plan on how to manage your pain. o Talk about ways to help manage your pain that don?t involve prescription opioids. o Talk about any and all concerns and side effects. ? Help prevent misuse and abuse o Never sell or share prescription opioids. o Never use another person?s prescription opioids. ? Store prescription opioids in a secure place and out of reach of others (this may include visitors, children, friends, and family). ? Safely dispose of unused prescription opioids: Find your community drug take-back program or your pharmacy mail-back program, or flush them down the toilet, followi (more content not included)... Normal [facility] Prescriptions/Work Noteson 1 Prescriptions/Work Notes [id number]:127 Normal [facility] Troponin 3 Hr.on 04-13-2022 Troponin I.cardiac [Mass/Vol] 35.40 pg/mL High 10.10-27.1 0 [facility] Comment on above: Result Comment: The 95% CI (Confidence Interval) PPV (Positive Predictive Value) for myocardial infarction in females is 38 pg/mL, in males 51 pg/mL. The results should be used in conjunction with clinical conditions of myocardial infarction. (Access High Sensitivity Troponin I Instructions For Use, Sera Ruby, January 2018) Performed By: #### 1 [id number] ####[facility] [address] [place] [address] XR Chest Single Viewon 04-13 XR Chest Single View Exam Date/Time: 04/12/2022 20:49 EDT Reason for Exam: epigastric pain;Other (please specify) Report IMPRESSION: NO EVIDENCE OF ACTIVE CHEST DISEASE. CLINICAL HISTORY: epigastric pain. COMMENT: AP portable. The heart is normal in size. The mediastinum is unremarkable. The lungs appear clear. No infiltration nor pleural effusion is evident. FINAL REPORT Dictated: 04/13/2022 7:57 am Yamil Beatty M.D. Signed (Electronic Signature): 04/13/2022 7:57 am Signed by: Yamil Beatty M.D. Transcribed by: ALAINA Technologist: DPR Normal [facility] Activated partial thrombopla stin time (aPTT) in platelet poor plasma by coagulation aOrdered By: Yvonne Ji on 04-12-2022 aPTT Coag (PPP) [Time] 20.3 s 25.1-36.5 [facility] Auto Diffon 04-12-2022 Basophils/100 WBC (Bld) 0.6 % Normal 0.0-2.0 [facility] Comment on above: Order Comment: Order Added by Discern Expert. Performed By: #### 1 [id number], 40028104, 3705503, 3314902, 8216963, 3181774, 7254061 ####[facility] [address] [place] [address] Basophils/Leukocytes Auto (Bld) [Pure # fraction] 0.1 E9/L Normal 0.0-0.2 [facility] Comment on above: Order Comment: Order Added by Discern Expert. Performed By: #### 1 [id number], 26883433, 4392845, 5046879, 3395880, 4565117, 7641813 ####[facility] [address] [place] [address] Eosinophils/100 WBC (Bld) 0.9 % Normal 0.0-8.0 [facility] Comment on above: Order Comment: Order Added by Discern Expert. Performed By: #### 1 [id number], 09999938, 3622020, 4329675, 4762302, 6951950, 8473006 ####[facility] [address] [place] [address] Eosinophils/Leukocytes Auto (Bld) [Pure # fraction] 0.1 E9/L Normal 0.0-0.5 [facility] Comment on above: Order Comment: Order Added by Thi Expert. Performed By: #### 1 9647073, 40664200, 4562174, 1896614, 2135375, 0689411, 5734549 ####[address] [place] [address] Lymphocytes/100 WBC (Bld) 16.4 % Normal 14.0-50.0 [facility] Comment on above: Order Comment: Order Added by Thi Expert. Performed By: #### 1 9454538, 08668899, 7213678, 1001743, 0882579, 3746176, 7531049 ####[address] [address] Lymphocytes/Leukocytes Auto (Bld) [Pure # fraction] 1.5 E9/L Normal 1.0-4.0 [facility] Comment on above: Order Comment: Order Added by Thi Expert. Performed By: #### 1 2445879, 54888803, 4801321, 4309527, 6104307, 1786593, 4303133 ####[address] [address] Monocytes/100 WBC (Bld) 6.5 % Normal 4.0-14.0 [facility] Comment on above: Order Comment: Order Added by Thi Expert. Performed By: #### 1 3507162, 54955429, 2381212, 6129232, 1829772, 5875496, 7263453 ####[address] [place] [address] Monocytes/Leukocytes Auto (Bld) [Pure # fraction] 0.6 E9/L Normal 0.2-1.0 [facility] Comment on above: Order Comment: Order Added by Thi Expert. Performed By: #### 1 6243925, 26563637, 0988094, 1740464, 8914121, 4675893, 2210612 ####[address] [address] Neutrophils/100 WBC (Bld) 75.6 % High 36.0-75.0 [facility] Comment on above: Order Comment: Order Added by Discern Expert. Performed By: #### 1 3852705, 16181170, 9998886, 0517327, 3539033, 1579462, 3578471 ####[facility] [address] [place] [address] Neutrophils/Leukocytes Auto (Bld) [Pure # fraction] 6.7 E9/L Normal 2.0-7.5 [facility] Comment on above: Order Comment: Order Added by Discern Expert. Performed By: #### 1 8236711, 05012260, 8459799, 4560902, 8467082, 7790708, 7781514 ####[facility] [address] [place] [address] BMPon 04-12-2022 Creatinine [Mass/Vol] 0.7 mg/dL Normal 0.5-1.3 [facility] Comment on above: Order Comment: keller d for pt in wr, no response. Will check back again. [email or web address] 04/12/2022 18:30:41 EDT Performed By: #### 1 7817832, 07651856, 9823609, 7189169, 4966358, 4401946, 8305893 ####[facility] [address] [place] [address] Urea nitrogen [Mass/Vol] 13 mg/dL Normal 5-21 [facility] Comment on above: Order Comment: keller d for pt in wr, no response. Will check back again. [email or web address] 04/12/2022 18:30:41 EDT Performed By: #### 1 8707894, 33355909, 7323833, 2888931, 0522417, 8723802, 9127007 ####[facility] [address] [place] [address] Urea nitrogen/Creatinine [Mass ratio] 19 No Units Normal 10-20 [facility] Comment on above: Order Comment: keller d for pt in , no response. Will check back again. [email or web address] 04/12/2022 18:30:41 EDT Performed By: #### 1 7485086, 51460513, 1484789, 4253861, 2872079, 3544243, 0351424 ####[facility] [address] [place] [address] Anion gap [Moles/Vol] 14 mmol/L Normal 6-16 [facility] Comment on above: Order Comment: keller d for pt in wr, no response. Will check back again. [email or web address] 04/12/2022 18:30:41 EDT Performed By: #### 1 9449881, 68998385, 9549040, 6496397, 6191006, 8927931, 3814490 ####[facility] [address] [place] [address] Calcium [Mass/Vol] 9.2 mg/dL Normal 8.9-11.1 [facility] Comment on above: Order Comment: keller d for pt in wr, no response. Will check back again. [email or web address] 04/12/2022 18:30:41 EDT Performed By: #### 1 2873542, 29845643, 9391056, 1422482, 1781236, 3688115, 2257820 ####[facility] [address] [place] [address] Chloride [Moles/Vol] 99 mmol/L Low 101-111 [facility] Comment on above: Order Comment: keller d for pt in wr, no response. Will check back again. [email or web address] 04/12/2022 18:30:41 EDT Performed By: #### 1 4251850, 05062282, 1016934, 2729198, 4033408, 1654114, 3236285 ####[facility] [address] [place] [address] CO2 [Moles/Vol] 25 mmol/L Normal 21-31 [facility] Comment on above: Order Comment: keller d for pt in , no response. Will check back again. [email or web address] 04/12/2022 18:30:41 EDT Performed By: #### 1 8175592, 95014541, 9231414, 1738210, 2591188, 1547675, 0398538 ####[facility] [address] [place] [address] Glucose [Mass/Vol] 247 mg/dL High 55-199 [facility] Comment on above: Order Comment: keller d for pt in , no response. Will check back again. [email or web address] 04/12/2022 18:30:41 EDT Result Comment: If t his glucose result represents a fasting glucose, interpretation should refer to the following reference range: 55-99 mg/dL Performed By: #### 1 9718929, 16408412, 7413409, 8998917, 2606744, 0907123, 0939389 ####[facility] [address] [place] [address] Potassium [Moles/Vol] 4.0 mmol/L Normal 3.5-5.3 [facility] Comment on above: Order Comment: keller d for pt in , no response. Will check back again. [email or web address] 04/12/2022 18:30:41 EDT Performed By: #### 1 8870795, 72705730, 3833150, 4589695, 5468316, 0524879, 0875857 ####[facility] [address] [place] [address] Sodium [Moles/Vol] 134 mmol/L Low 135-145 [facility] Comment on above: Order Comment: keller d for pt in , no response. Will check back again. [email or web address] 04/12/2022 18:30:41 EDT Performed By: #### 1 9366751, 99041578, 9406844, 8146103, 1794524, 6347511, 1760346 ####[facility] [address] [place] [address] Basophils Auto (Bld) [#/Vol] Ordered By: Yvonne Ji on 04-12-2022 Basophils (Bld) [#/Vol] 0.0 10*3/uL 0.0-0.2 [facility] Basophils/100 WBC Auto (Bld) Ordered By: Yvonne Ji on 04-12-2022 Basophils/100 WBC (Bld) 0.4 % . [facility] CBC w/ Auto Diffon Erythrocyte distribution width (RBC) [Ratio] 13.1 % Normal 10.9-14.2 [facility] Comment on above: Performed By: #### 1 8492409, 43410009, 8429692, 5860171, 6299250, 5648202, 8381165 ####[facility] [address] [place] [address] Hematocrit (Bld) [Volume fraction] 41.1 % Normal 34.0-46.0 [facility] Comment on above: Performed By: #### 1 4097806, 00976303, 0585321, 3749648, 7954695, 6233422, 2458345 ####[facility] [address] [place] [address] Hemoglobin (Bld) [Mass/Vol] 14.0 g/dL Normal 12.0-16.0 [facility] Comment on above: Performed By: #### 1 7508467, 26412380, 5949017, 0513889, 6284381, 2793124, 4526885 ####[facility] [address] [place] [address] MCH (RBC) [Entitic mass] 27.3 pg Normal 27.0-34.0 [facility] Comment on above: Performed By: #### 1 1830276, 22648748, 7235820, 5326844, 1857843, 3787403, 2361698 ####[facility] [address] [place] [address] MCHC (RBC) [Mass/Vol] 34.0 g/dL Normal 31.4-36.0 [facility] Comment on above: Performed By: #### 1 4480809, 48406641, 6904760, 0213639, 6349211, 9242761, 3006074 ####[facility] [address] [place] [address] MCV (RBC) [Entitic vol] 80.5 fL Normal 80.0-100.0 [facility] Comment on above: Performed By: #### 1 6843704, 90917131, 4565088, 2743672, 8920595, 5749168, 8734393 ####[facility] [address] [place] [address] Platelet mean volume (Bld) [Entitic vol] 7.9 fL Normal 6.4-10.8 [facility] Comment on above: Performed By: #### 1 0225363, 88378648, 3456969, 4643127, 8536423, 6563086, 1349088 ####[address] [place] [address] Platelets (Bld) [#/Vol] 322.0 E9/L Normal 150. 0-500. 0 [facility] Comment on above: Performed By: #### 1 3481416, 44283784, 7661287, 4634327, 8482446, 9641792, 2069177 ####[facility] [address] [place] [address] RBC (Bld) [#/Vol] 5.1 E12/L Normal 4.3-5.9 [facility] Comment on above: Performed By: #### 1 1971575, 10602167, 7161701, 7331564, 5188592, 9152365, 4656189 ####[facility] [address] [place] [address] WBC corrected for nucl RBC Auto (Bld) [#/Vol] 8.9 E9/L Normal 4.0-11.0 [facility] Comment on above: Performed By: #### 1 4665318, 40959179, 2015343, 0792841, 7786669, 7858311, 3253603 ####[address] [place] [address] CHEMISTRYOrdered By: SYSTEM SYSTEM on 04-12-2022 Troponin I.cardiac [Mass/Vol] 35.40 pg/mL High 10.10 - 27.10 pg/mL [facility] Remisol Albumin [Mass/Vol] 4.0 g/dL Normal 3.3 - 5.0 gm/dL [facility] Remisol Albumin/Globulin [Mass ratio] 1.1 {ratio} Normal 1.1 - 2.2 [facility] Remisol ALP [Catalytic activity/Vol] 74 [iU]/d Normal 21 - 98 Int._Unit/ L [facility] Remisol ALT No additional P-5'-P [Catalytic activity/Vol] 17 [iU]/d Normal 6 - 46 Int._Unit/ L [facility] Remisol Anion gap [Moles/Vol] 14 mmol/L Normal 6 - 16 mEq/L [facility] Remisol AST [Catalytic activity/Vol] 14 [iU]/d Normal 5 - 43 Int._Unit/ L [facility] Remisol Bilirubin [Mass/Vol] 0.7 mg/dL Normal 0.0 - 1 .1 mg/dL [facility] Remisol Bilirubin.direct [Mass/Vol] 0.2 mg/dL Normal 0.1 - 0.4 mg/dL [facility] Remisol Bilirubin.indirect [Mass or moles/Vol] 0.6 mg/dL Normal 0.1 - 0.9 mg/dL [facility] Remisol Calcium [Mass/Vol] 9.2 mg/dL Normal 8.9 - 11. 1 mg/dL [facility] Chloride [Moles/Vol] 99 mmol/L Low 101 - 1 11 mmol/L [facility] CO2 [Moles/Vol] 25 mmol/L Normal 21 - 31 mmol/L [facility] Creatinine [Mass/Vol] 0.7 mg/dL Normal 0.5 - 1.3 mg/dL [facility] Remisol GFR/1.73 sq M.predicted among blacks MDRD (S/P/Bld) [Vol rate/Area] mL/min/1.73 m2 Normal >=59mL/min /1.73 m2 FT Chem S GFR/1.73 sq M.predicted among non-blacks MDRD (S/P/Bld) [Vol rate/Area] mL/min/1.73 m2 Normal >=59mL/min /1.73 m2 FT Chem S Globulin (S) [Mass/Vol] 3.5 g/dL Normal 1.4 - 4.0 gm/dL [facility] Remisol Glucose [Mass/Vol] 247 mg/dL High 55 - 199 mg/dL [facility] Remisol Lipase [Catalytic activity/Vol] 30 U/L Normal 13 - 58 unit/L [facility] Remisol Potassium [Moles/Vol] 4.0 mmol/L Normal 3.5 - 5.3 mmol/L [facility] Remisol Protein [Mass/Vol] 7.5 g/dL Normal 6.0 - 7.8 gm/dL [facility] Remisol Sodium [Moles/Vol] 134 mmol/L Low 135 - 145 mmol/L [facility] Remisol Troponin I.cardiac [Mass/Vol] 37.00 pg/mL High 10.10 - 27.10 pg/mL [facility] Urea nitrogen [Mass/Vol] 13 mg/dL Normal 5 - 21 mg/dL [facility] Urea nitrogen/Creatinine [Mass ratio] 19 mg/mg Normal 10 - 20 [facility] Remisol COVID CepheidOrdered By: Melody Ji on 04-12-2022 SARS-CoV-2 (COVID-19) Ab IA Ql Negative Negative [facility] Comment on above: This is a duplicate [employer] CoV-2/Flu/RSV Plus RNA by RT-PCR result to be used for statistical tracking purpose only. SARS-CoV-2 (COVID-19) RNA KIRILL+probe Ql (Unsp spec) [facility] Consent for Treatmenton 03-27 Consent for Treatment [id number]:127 Normal [facility] Creatine kinase [Enzymatic a ctivity/volume] in Serum or PlasmaOrdered By: Yvonne Ji on 04-12-2022 CK [Catalytic activity/Vol] 51 U/L 22-269 [facility] Creatinine and Glomerular fi ltration rate.predicted panel (S/P/Bld)Ordered By: Yvonne Ji on 04-12-2022 Creatinine [Mass/Vol] 0.72 mg/dL 0.44-1.03 [facility] Eosinophils Auto (Bld) [#/Vo l]Ordered By: Yvonne Ji on 04-12-2022 Eosinophils (Bld) [#/Vol] 0.1 10*3/uL 0.0-0.45 [facility] Eosinophils/100 WBC Auto (Bl d)Ordered By: Yvonne Ji on 04-12-2022 Eosinophils/100 WBC (Bld) 0.6 % . [facility] Erythrocyte distribution wid th Auto (RBC) [Ratio]Ordered By: Yvonne Ji on 04-12-2022 Erythrocyte distribution width (RBC) [Ratio] 13.2 % 11.9-15.3 [facility] Estimated glomerular filtrat ion rate (GFR) non- AmericanOrdered By: Yvonne Ji on 04-12-2022 GFR/1.73 sq M.predicted among non-blacks MDRD (S/P/Bld) [Vol rate/Area] > 60 mL/Min [facility] HEMATOLOGYOrdered By: SYSTEM SYSTEM on 04-12-2022 Basophils/100 WBC (Bld) 0.6 % Normal 0.0 - 2.0 % [facility] HemeAutoSS Basophils/Leukocytes Auto (Bld) [Pure # fraction] 0.1 E9/L Normal 0.0 - 0.2 E9/L [facility]eAutoSS Eosinophils/100 WBC (Bld) 0.9 % Normal 0.0 - 8.0 % [facility]eAutoSS Eosinophils/Leukocytes Auto (Bld) [Pure # fraction] 0.1 E9/L Normal 0.0 - 0.5 E9/L [facility]eAuto[facility] Lymphocytes/100 WBC (Bld) 16.4 % Normal 14.0 - 50.0 % [facility]eAutoSS Lymphocytes/Leukocytes Auto (Bld) [Pure # fraction] 1.5 E9/L Normal 1.0 - 4.0 E9/L [facility]eAutoSS Monocytes/100 WBC (Bld) 6.5 % Normal 4.0 - 14.0 % [facility] HemeAutoSS Monocytes/Leukocytes Auto (Bld) [Pure # fraction] 0.6 E9/L Normal 0.2 - 1.0 E9/L [facility]eAutoSS Neutrophils/100 WBC (Bld) 75.6 % High 36.0 - 75.0 % [facility]eAutoSS Neutrophils/Leukocytes Auto (Bld) [Pure # fraction] 6.7 E9/L Normal 2.0 - 7.5 E9/L [facility]Auto[facility] HEMATOLOGYOrdered By: Lucio irvin on 04-12-2022 Erythrocyte distribution width (RBC) [Ratio] 13.1 % Normal 10.9 - 14.2 % [facility] HemeAutoSS Hematocrit (Bld) [Volume fraction] 41.1 % Normal 34.0 - 46.0 % [facility]eAuto[facility] Hemoglobin (Bld) [Mass/Vol] 14.0 g/dL Normal 12.0 - 16.0 gm/dL [facility] HemeAutoSS MCH (RBC) [Entitic mass] 27.3 pg Normal 27.0 - 34.0 pg [facility] HemeAutoSS MCHC (RBC) [Mass/Vol] 34.0 g/dL Normal 31.4 - 36.0 gm/dL [facility] HemeAutoSS MCV (RBC) [Entitic vol] 80.5 fL Normal 80.0 - 100.0 fL [facility] HemeAutoSS Platelet mean volume (Bld) [Entitic vol] 7.9 fL Normal 6.4 - 10.8 fL [facility] HemeAutoSS Platelets (Bld) [#/Vol] 322.0 E9/L Normal 150. 0 - 500.0 E9/L [facility] HemeAutoSS RBC (Bld) [#/Vol] 5.1 E12/L Normal 4.3 - 5.9 E12/L [facility] HemeAutoSS WBC corrected for nucl RBC Auto (Bld) [#/Vol] 8.9 E9/L Normal 4.0 - 11.0 E9/L [facility] HemeAuto[facility] Hematocrit Auto (Bld) [Volum e fraction]Ordered By: Yvonne Ji on 04-12-2022 Hematocrit (Bld) [Volume fraction] 43.7 % 34.0-46.4 [facility] Hemoglobin [Mass/volume] in BloodOrdered By: Yvonne Ji on 04-12-2022 Hemoglobin (Bld) [Mass/Vol] 14.5 g/dL 11.8-15.4 [facility] Hep Func Panelon 04-12-2022 Albumin [Mass/Vol] 4.0 g/dL Normal 3.3-5.0 [facility] Comment on above: Performed By: #### 1 [id number], [id number], 2341843, 3778156, 9443018, 7797723, 5978354 ####[facility] [address] [place] [address] Albumin/Globulin (S) [Mass conc ratio] 1.1 Normal 1.1-2.2 [facility] Comment on above: Performed By: #### 1 [id number], [id number], 6915072, 5167246, 1919475, 9385890, 8769275 ####[address] [place] [address] ALP [Catalytic activity/Vol] 74 Int._Unit/L Normal 21-98 [facility] Comment on above: Performed By: #### 1 [id number], [id number], 8218131, 2253228, 2444747, 0355904, 1603601 ####[address] [address] ALT No additional P-5'-P [Catalytic activity/Vol] 17 Int._Unit/L Normal 6-46 [facility] Comment on above: Performed By: #### 1 [id number], 82083881, 0809735, 2523354, 7438736, 6219769, 5977088 ####[id number] AST [Catalytic activity/Vol] 14 Int._Unit/L Normal 5-43 [facility] Comment on above: Performed By: #### 1 [id number], 55039365, 7601979, 8286026, 9473650, 5730800, 8648861 ####[address] [address] Bilirubin [Mass/Vol] 0.7 mg/dL Normal 0.0-1.1 [facility] Comment on above: Performed By: #### 1 [id number], 99922636, 2310927, 9771914, 9046498, 0671294, 4122714 ####[address] [place] [address] Bilirubin.direct [Mass/Vol] 0.2 mg/dL Normal 0.1-0.4 [facility] Comment on above: Performed By: #### 1 [id number], 55584730, 1133492, 6340789, 7066501, 5366099, 5845803 ####[facility] [address] [place] [address] Bilirubin.indirect [Mass or moles/Vol] 0.6 mg/dL Normal 0.1-0.9 [facility] Comment on above: Performed By: #### 1 [id number], 41629477, 7388835, 0945374, 7482104, 6938197, 8755198 ####[facility] [address] [place] [address] Globulin (S) [Mass/Vol] 3.5 g/dL Normal 1.4-4.0 [facility] Comment on above: Performed By: #### 1 8386602, 03887993, 7558674, 6249145, 9165675, 1512008, 6537399 ####[facility] [address] [place] [id number] Protein [Mass/Vol] 7.5 g/dL Normal 6.0-7.8 [facility] Comment on above: Performed By: #### 1 [id number], 11618478, 2123349, 6116605, 6769591, 8905778, 8395620 ####[facility] [address] [place] [address] Laboratory - Chemistry and C hemistry - challengeOrdered By: Yvonne Ji on 04-12-2022 Natriuretic peptide B (Bld) [Mass/Vol] 109.0 pg/mL 5-100 [facility] Laboratory - CoagulationOrde red By: Yvonne Ji on 04-12-2022 PT Coag (PPP) [Time] 10.3 s 9.0-12.9 [facility] Laboratory - Hematology and Cell countsOrdered By: Yvonne Ji on 04-12-2022 Nucleated RBC/100 WBC (Bld) [Ratio] 0.1 % 0-0.5 [facility] Leukocytes [#/volume] in Blo od by Automated countOrdered By: Yvonne Ji on 04-12-2022 WBC (Bld) [#/Vol] 11.0 10*3/uL 4.5-11.0 [facility] Lipase Levelon 04-12-2022 Lipase [Catalytic activity/Vol] 30 U/L Normal 13-58 [facility] Comment on above: Performed By: #### 1 [id number], 85429016, 0751974, 0040011, 9081531, 2912406, 3178397 ####[facility] [address] [place] [address] Lymphocytes Auto (Bld) [#/Vo l]Ordered By: Yvonne Ji on 04-12-2022 Lymphocytes (Bld) [#/Vol] 1.1 10*3/uL 1.00-4.8 [facility] Lymphocytes/100 WBC Auto (Bl d)Ordered By: Yvonne Ji on 04-12-2022 Lymphocytes/100 WBC (Bld) 10.4 % . [facility] MCH Auto (RBC) [Entitic mass ]Ordered By: Yvonne Ji on 04-12-2022 MCH (RBC) [Entitic mass] 27.2 pg 24.7-34.3 [facility] MCHC Auto (RBC) [Mass/Vol]Or dered By: Yvonne Ji on 04-12-2022 MCHC (RBC) [Mass/Vol] 33.1 g/dL 32.0-35.0 [facility] MCV Auto (RBC) [Entitic vol] Ordered By: Yvonne Ji on 04-12-2022 MCV (RBC) [Entitic vol] 82.0 fL 80-100 F [facility] Monocytes Auto (Bld) [#/Vol] Ordered By: Yvonne Ji on 04-12-2022 Monocytes (Bld) [#/Vol] 0.5 10*3/uL 0.0-0.8 [facility] Monocytes/100 WBC Auto (Bld) Ordered By: Yvonne Ji on 04-12-2022 Monocytes/100 WBC (Bld) 4.7 % . F [facility] Neutrophils Auto (Bld) [#/Vo l]Ordered By: Yvonne Ji on 04-12-2022 Neutrophils (Bld) [#/Vol] 9.2 10*3/uL 1.8-7.7 [facility] Neutrophils/100 WBC Auto (Bl d)Ordered By: Yvonne Ji on 04-12-2022 Neutrophils/100 WBC (Bld) 83.9 % . [facility] No Panel InformationOrdered By: Yvonne Ji on 04-12-2022 Estimated GFR () > 60 mL/Min [facility] Comment on above: GFR estimated refere nce range: According to KDOQI guidelines, <60 ml/min/1.73m2 is sufficient to diagnose a patient with chronic kidney disease. Pharmacy Creatinine Clearance (Chem 114.35 [facility] Platelet mean volume Auto (B ld) [Entitic vol]Ordered By: Yvonne Ji on 04-12-2022 Platelet mean volume (Bld) [Entitic vol] 8.3 fL 6.3-10.7 [facility] Platelet poor plasma interna tional normalized ratio (INR) by coagulation assay (relatOrdered By: Yvonne Ji on 04-12-2022 INR Coag (PPP) [Relative time] 0.9 {INR} [facility] Comment on above: INR Therapeutic Rang e A) Pre- and Peroperative OAT started two weeks before surgery. NOT HIP SURGERY: 1.5 - 2.5 HIP SURGERY: 2 - 3B) Primary and secondary prevention of venous THROMBOSIS: 2 - 3C) Active venous thrombosis, pulmonary embolismand prevention of recurrent venous thrombosis: 2 - 3D) Prevention of arterial thromboembolismincluding patients with mechanical heart valves: 3 - 4.5 Platelets Auto (Bld) [#/Vol] Ordered By: Yvonne Ji on 04-12-2022 Platelets (Bld) [#/Vol] 311 10*3/uL 150-450 [facility] RBC Auto (Bld) [#/Vol]Ordere d By: Yvonne Ji on 04-12-2022 RBC (Bld) [#/Vol] 5.32 10*6/uL 3.60-5.00 [facility] SEROLOGYOrdered By: Parker melara on 04-12-2022 Beta hCG Ql Negative (04/12/22 11:19 PM) Normal [facility] Man Sero Serum or plasma anion gap de terminationOrdered By: Yvonne Ji on 04-12-2022 Anion gap [Moles/Vol] 14.4 mmol/L 6.0-15.0 [facility] Serum or plasma calcium pedro urement (mass/volume)Ordered By: Yvonne Ji on 04-12-2022 Calcium [Mass/Vol] 9.5 mg/dL 8.2-10.2 [facility] Serum or plasma chloride lara surement (moles/volume)Ordered By: Yvonne Ji on 04-12-2022 Chloride [Moles/Vol] 97 mmol/L 95-114 [facility] Serum or plasma creatine kin ase MB (CKMB)/total creatine kinase (CK) ratio by calculaOrdered By: Yvonne Ji on 04-12-2022 CK.MB Calc [Catalytic fraction] 3.5 % 0.00-2.50 [facility] Serum or plasma creatine kin ase MB measurement (mass/volume)Ordered By: Yvonne Ji on 04-12-2022 CK.MB [Mass/Vol] 1.8 ng/mL 0.6-6.3 [facility] Serum or plasma glucose pedro urement (mass/volume)Ordered By: Yvonne Ji on 04-12-2022 Glucose [Mass/Vol] 313 mg/dL 70-100 [facility] Comment on above: ADA recommended refe rence rangeRandom Glucose Reference Range is dependent on time and content of last meal. Glucose of more than 200 mg/dL in a nonstressed, ambulatory subject supports the diagnosis of Diabetes Mellitus. Serum or plasma potassium me asurement (moles/volume)Ordered By: Yvonne Ji on 04-12-2022 Potassium [Moles/Vol] 4.2 mmol/L 3.5-5.1 [facility] Serum or plasma sodium measu rement (moles/volume)Ordered By: Yvonne Ji on 04-12-2022 Sodium [Moles/Vol] 133 mmol/L 136-146 [facility] Serum or plasma total carbon dioxide measurement (moles/volume)Ordered By: Yvonne Ji on 04-12-2022 CO2 [Moles/Vol] 25.8 mmol/L 22.0-30.0 [facility] Serum or plasma urea nitroge n measurement (mass/volume)Ordered By: Yvonne Ji on 04-12-2022 Urea nitrogen [Mass/Vol] 11 mg/dL 9-23 [facility] Troponin 0 Hr.on 04-12-2022 Troponin I.cardiac [Mass/Vol] 37.00 pg/mL High 10.10-27.1 0 [facility] Comment on above: Result Comment: The 95% CI (Confidence Interval) PPV (Positive Predictive Value) for myocardial infarction in females is 38 pg/mL, in males 51 pg/mL. The results should be used in conjunction with clinical conditions of myocardial infarction. (Access High Sensitivity Troponin I Instructions For Use, [employer], January 2018) Performed By: #### 1 [id number], [id number], 6906617, 3699072, 1332695, 6924693, 0913050 ####[facility] [address] [place] [address] Troponin I.cardiac [Mass/vol ume] in Serum or Plasma by High sensitivity methodOrdered By: Yvonne Ji on 04-12-2022 Troponin I.cardiac High sensitivity method [Mass/Vol] 37 pg/mL 0-15 [facility] eGFRon 04-12-2022 GFR/1.73 sq M.predicted among blacks MDRD (S/P/Bld) [Vol rate/Area] mL/min/{1.73_m2} Normal >=59 [facility] Comment on above: Order Comment: Order added by Discern Expert. Result Comment: eGFR is race adjusted. AA=. Performed By: #### 1 [id number], 01557191, 2129826, 0374468, 5221511, 1335380, 2983752 ####[facility] [address] [place] [address] GFR/1.73 sq M.predicted among non-blacks MDRD (S/P/Bld) [Vol rate/Area] mL/min/{1.73_m2} Normal >=59 [facility] Comment on above: Order Comment: Order added by Discern Expert. Result Comment: [employer] vern kidney disease could be indicated at eGFR's of less than 60 mL/min/1.73m2. Kidney failure is indicated at less than 15 mL/min/1.73m2. Performed By: #### 1 [id number], 28097948, 0952741, 6636445, 0139719, 2499457, 6995840 ####[place] [facility] [address] [place] [address] Bacteria identified Aer cx N om (Unsp spec)Ordered By: Harika Whitaker on 04-07-2022 Superficial Wound Culture Methicillin Resis Staph Aureus [facility] Superficial Wound Culture Strep. agalactiae Grp B [facility] Q - C-PEPTIDEon 11-25-2021 C-PEPTIDE 1.45 ng/mL Normal 0.80-3.85 [facility] Specialist Comment on above: Order Comment: [facility] performed at: [employer], [facility], [address] [place] [address], [address] [place] [address], [address], Can Marker: Antonio Light MD [facility] Collection Date/Time: [facility] Results Received Date/Time: [facility] Reported Date/Time: Performed By: #### 3 08, 149, 74795 #### [facility] Default [address] [place] [address] Q - INSULIN AUTOANTIBODYon 0 11-25-2021 INSULIN AUTOANTIBODY <0.4 Normal <0.4 [facility] Comment on above: Order Comment: [facility] performed at: [employer], [facility],, [address] [place], [address], Can Marker: Cristela Stanton MD,PhD,CHELSIE [facility] Date/Time: [facility] Results Received Date/Time: [facility] Reported Date/Time: Performed By: #### 3 20, 561, 93153 #### [facility] [address] [place] [address] Q - INSULIN,SERUMon 11-26-19 INSULIN 5.7 uIU/mL Normal [facility] Comment on above: Order Comment: [facility] performed at: [employer], [facility] [facility], [address], [address] [facility], [place], [address], Can Marker: Antonio Light MD [facility] Collection Date/Time: [id number] [facility] Results Received Date/Time: [facility] Reported Date/Time: Result Comment: Refe rence Range < or = 19.6 Risk: Optimal < or = 19.6 Moderate NA High >19.6 Adult cardiovascular event risk category cut points (optimal, moderate, high) are based on [facility] [facility] population data from 05/2011. This insulin assay shows strong cross-reactivity for some insulin analogs (lispro, aspart, and glargine) and much lower cross-reactivity with others (detemir, glulisine). Performed By: #### 3 72, 005, 07462 #### [facility] [address] [place] [address] Basophils Auto (Bld) [#/Vol] Ordered By: Juan Mark on 11-23-2021 Basophils (Bld) [#/Vol] 0.1 10*3/uL 0.0-0.2 [facility] Basophils/100 WBC Auto (Bld) Ordered By: Juan Mark on 11-23-2021 Basophils/100 WBC (Bld) 0.7 % F [facility] Blood hemoglobin measurement (mass/volume)Ordered By: Juan Mark on 11-23-2021 Hemoglobin (Bld) [Mass/Vol] 10.7 g/dL 11.8-15.4 [facility] Blood leukocytes automated c ount (number/volume)Ordered By: Juan Mark on 11-23-2021 WBC (Bld) [#/Vol] 7.5 10*3/uL 4.5-11.0 [facility] Eosinophils Auto (Bld) [#/Vo l]Ordered By: Juan Mark on 11-23-2021 Eosinophils (Bld) [#/Vol] 0.2 10*3/uL 0.0-0.45 [facility] Eosinophils/100 WBC Auto (Bl d)Ordered By: Juan Mark on 11-23-2021 Eosinophils/100 WBC (Bld) 3.0 % [facility] Erythrocyte distribution wid th Auto (RBC) [Ratio]Ordered By: Juan Mark on 11-23-2021 Erythrocyte distribution width (RBC) [Ratio] 12.8 % 11.9-15.3 [facility] Glucose Glucometer (BldC) [M ass/Vol]Ordered By: Priti Bhandari on 11-23-2021 Glucose [Mass/Vol] 311 mg/dL [facility] Comment on above: Random Glucose Refer ence Range is dependent on time and content of last meal. Glucose of more than 200 mg/dL in a nonstressed, ambulatory subject supports the diagnosis of Diabetes Mellitus. Hematocrit Auto (Bld) [Volum e fraction]Ordered By: Juan Mark on 11-23-2021 Hematocrit (Bld) [Volume fraction] 31.1 % 34.0-46.4 [facility] Laboratory - Hematology and Cell countsOrdered By: Juan Mark on 11-23-2021 Nucleated RBC/100 WBC (Bld) [Ratio] 0.0 % 0-0.5 [facility] Lymphocytes Auto (Bld) [#/Vo l]Ordered By: Juan Mark on 11-23-2021 Lymphocytes (Bld) [#/Vol] 1.9 10*3/uL 1.00-4.8 [facility] Lymphocytes/100 WBC Auto (Bl d)Ordered By: Juan Makr on 11-23-2021 Lymphocytes/100 WBC (Bld) 25.6 % [facility] MCH Auto (RBC) [Entitic mass ]Ordered By: Juan Mark on 11-23-2021 MCH (RBC) [Entitic mass] 28.7 pg 24.7-34.3 [facility] MCHC Auto (RBC) [Mass/Vol]Or dered By: Juan Mark on 11-23-2021 MCHC (RBC) [Mass/Vol] 34.4 g/dL 32.0-35.0 [facility] MCV Auto (RBC) [Entitic vol] Ordered By: Juan Mark on 11-23-2021 MCV (RBC) [Entitic vol] 83.3 fL 80-100 F [facility] Monocytes Auto (Bld) [#/Vol] Ordered By: Juan Mark on 11-23-2021 Monocytes (Bld) [#/Vol] 0.8 10*3/uL 0.0-0.8 [facility] Monocytes/100 WBC Auto (Bld) Ordered By: Juan Mark on 11-23-2021 Monocytes/100 WBC (Bld) 10.7 % F [facility] Neutrophils Auto (Bld) [#/Vo l]Ordered By: Juan Mark on 11-23-2021 Neutrophils (Bld) [#/Vol] 4.5 10*3/uL 1.8-7.7 [facility] Neutrophils/100 WBC Auto (Bl d)Ordered By: Juan Mark on 11-23-2021 Neutrophils/100 WBC (Bld) 60.0 % [facility] No Panel InformationOrdered By: Priti Bhandari on 11-23-2021 Bedside Glucose Comment Glu2: cleaned meter [facility] Peak vancomycin levelOrdered By: Juan Mark on 11-23-2021 Vancomycin peak [Mass/Vol] 22.6 ug/mL 20.0-40.0 [facility] Comment on above: Last dose: - Platelet mean volume Auto (B ld) [Entitic vol]Ordered By: Juan Mark on 11-23-2021 Platelet mean volume (Bld) [Entitic vol] 8.2 fL 6.3-10.7 [facility] Platelets Auto (Bld) [#/Vol] Ordered By: Juan Mark on 11-23-2021 Platelets (Bld) [#/Vol] 344 10*3/uL 150-450 [facility] RBC Auto (Bld) [#/Vol]Ordere d By: Juan Mark on 11-23-2021 RBC (Bld) [#/Vol] 3.73 10*6/uL 3.60-5.00 [facility] Serum or plasma trough vanco mycin levelOrdered By: Juan Mark on 11-23-2021 Vancomycin trough [Mass/Vol] 9.5 ug/mL 10.0-20.0 [facility] Comment on above: Last dose: - Creatinine and Glomerular fi ltration rate.predicted panel (S/P/Bld)Ordered By: Juan Mark on 11-22-2021 Creatinine [Mass/Vol] 0.61 mg/dL 0.44-1.03 [facility] Estimated glomerular filtrat ion rate (GFR) non- AmericanOrdered By: Juan Mark on 11-22-2021 GFR/1.73 sq M.predicted among non-blacks MDRD (S/P/Bld) [Vol rate/Area] > 60 mL/Min [facility] No Panel InformationOrdered By: Juan Mark on 11-22-2021 Estimated GFR () > 60 mL/Min [facility] Comment on above: GFR estimated refere nce range: According to KDOQI guidelines, <60 ml/min/1.73m2 is sufficient to diagnose a patient with chronic kidney disease. Pharmacy Creatinine Clearance (Chem 125.67 [facility] Serum or plasma chloride lara surement (moles/volume)Ordered By: Juan Mark on 11-22-2021 Chloride [Moles/Vol] 103 mmol/L 95-114 [facility] Serum or plasma potassium me asurement (moles/volume)Ordered By: Juan Mark on 11-22-2021 Potassium [Moles/Vol] 3.9 mmol/L 3.5-5.1 [facility] Serum or plasma sodium measu rement (moles/volume)Ordered By: Juan Mark on 11-22-2021 Sodium [Moles/Vol] 133 mmol/L 136-146 [facility] Serum or plasma total carbon dioxide measurement (moles/volume)Ordered By: Juan Mark on 11-22-2021 CO2 [Moles/Vol] 21.1 mmol/L 22.0-30.0 [facility] Serum or plasma urea nitroge n measurement (mass/volume)Ordered By: Juan Mark on 11-22-2021 Urea nitrogen [Mass/Vol] 13 mg/dL 9-23 [facility] ABO and Rh group post transf usion reaction Nom (Bld)Ordered By: Juan Mark on 05-28-2022 Microscopic observation Gram stain Nom (Unsp spec) [facility] Microscopic observation Gram stain Nom (Unsp spec) [facility] Activated partial thrombopla stin time (aPTT) in platelet poor plasma by coagulation aOrdered By: Billy Levine on 11-21-2021 aPTT Coag (PPP) [Time] 23.2 s 25.1-36.5 [facility] Albumin [Mass/volume] in Ser um or PlasmaOrdered By: Billy Levine on 11-21-2021 Albumin [Mass/Vol] 2.9 g/dL 3.2-5.5 [facility] Bacteria identified Aer cx N om (Unsp spec)Ordered By: Juan Mark on 11-21-2021 Aerobic Culture Strep. agalactiae Grp B [facility] Basophils Auto (Bld) [#/Vol] Ordered By: Billy Levine on 11-21-2021 Basophils (Bld) [#/Vol] 0.1 10*3/uL 0.0-0.2 [facility] Basophils/100 WBC Auto (Bld) Ordered By: Billy Levine on 11-21-2021 Basophils/100 WBC (Bld) 0.8 % F [facility] Bilirubin Test strip Ql (U)O rdered By: Billy Levine on 11-21-2021 Bilirubin Ql (U) Negative Negative [facility] Blood hemoglobin measurement (mass/volume)Ordered By: Billy Levine on 11-21-2021 Hemoglobin (Bld) [Mass/Vol] 12.4 g/dL 11.8-15.4 [facility] Blood leukocytes automated c ount (number/volume)Ordered By: Billy Levine on 11-21-2021 WBC (Bld) [#/Vol] 16.8 10*3/uL 4.5-11.0 [facility] COVID CepheidOrdered By: Milo Levine on 11-21-2021 SARS-CoV-2 (COVID-19) Ab IA Ql Negative Negative [facility] Comment on above: This is a duplicate Cepheid Xpert Xpress CoV-2/Flu/RSV Plus RNA by RT-PCR result to be used for statistical tracking purpose only. SARS-CoV-2 (COVID-19) RNA KIRILL+probe Ql (Unsp spec) [facility] Color Auto (U)Ordered By: Andrei Levine on 11-21-2021 Color (U) Yellow Yellow [facility] Creatinine and Glomerular fi ltration rate.predicted panel (S/P/Bld)Ordered By: Billy Levine on 11-21-2021 Creatinine [Mass/Vol] 0.81 mg/dL 0.44-1.03 [facility] Eosinophils Auto (Bld) [#/Vo l]Ordered By: Billy Levine on 11-21-2021 Eosinophils (Bld) [#/Vol] 0.1 10*3/uL 0.0-0.45 [facility] Eosinophils/100 WBC Auto (Bl d)Ordered By: Billy Levine on 11-21-2021 Eosinophils/100 WBC (Bld) 0.9 % [facility] Erythrocyte distribution wid th Auto (RBC) [Ratio]Ordered By: Billy Levine on 11-21-2021 Erythrocyte distribution width (RBC) [Ratio] 13.0 % 11.9-15.3 [facility] Estimated glomerular filtrat ion rate (GFR) non- AmericanOrdered By: Billy Levine on 11-21-2021 GFR/1.73 sq M.predicted among non-blacks MDRD (S/P/Bld) [Vol rate/Area] > 60 mL/Min [facility] Globulin Calc (S) [Mass/Vol] Ordered By: Billy Levine on 11-21-2021 Globulin (S) [Mass/Vol] 3.2 g/dL F [facility] Glucose Glucometer (BldC) [M ass/Vol]Ordered By: Billy Levine on 11-21-2021 Glucose [Mass/Vol] 333 mg/dL [facility] Comment on above: Random Glucose Refer ence Range is dependent on time and content of last meal. Glucose of more than 200 mg/dL in a nonstressed, ambulatory subject supports the diagnosis of Diabetes Mellitus. Glucose mean value [Mass/vol ume] in Blood Estimated from glycated hemoglobinOrdered By: Luis Alvarez on 11-21-2021 Average glucose Estimated from glycated hemoglobin (Bld) [Mass/Vol] 344 mg/dL [facility] HCG ( test) IA.rapi d Ql (U)Ordered By: Billy Levine on 11-21-2021 HCG ( test) Ql (U) Negative [facility] Hematocrit Auto (Bld) [Volum e fraction]Ordered By: Billy Levine on 11-21-2021 Hematocrit (Bld) [Volume fraction] 37.7 % 34.0-46.4 [facility] Hemoglobin A1c percentageOrd ered By: Luis Antonio on 11-21-2021 HbA1c (Bld) [Mass fraction] 13.6 % 4.3-5.6 [facility] Comment on above: Increased risk for d iabetes: 5.7 - 6.4 diabetes: >6.4 glycemic control for adults with diabetes: <7.0 Ketones Auto test strip (U) [Mass/Vol]Ordered By: Billy Levine on 11-21-2021 Ketones (U) [Mass/Vol] 2+ Negative [facility] - CoagulationOrde red By: Billy Levine on 11-21-2021 PT Coag (PPP) [Time] 11.0 s 9.0-12.9 [facility] - Hematology and Cell countsOrdered By: Billy Levine on 11-21-2021 Nucleated RBC/100 WBC (Bld) [Ratio] 0.0 % 0-0.5 [facility] - Microbiology an d Antimicrobial susceptibilityOrdered By: Billy Levine on 11-21-2021 SARS-CoV-2 (COVID-19) RNA KIRILL+probe Ql (Unsp spec) N/A [facility] Lymphocytes Auto (Bld) [#/Vo l]Ordered By: Billy Levine on 11-21-2021 Lymphocytes (Bld) [#/Vol] 1.2 10*3/uL 1.00-4.8 [facility] Lymphocytes/100 WBC Auto (Bl d)Ordered By: Billy Levine on 11-21-2021 Lymphocytes/100 WBC (Bld) 7.3 % [facility] MCH Auto (RBC) [Entitic mass ]Ordered By: Billy Levine on 11-21-2021 MCH (RBC) [Entitic mass] 27.9 pg 24.7-34.3 [facility] MCHC Auto (RBC) [Mass/Vol]Or dered By: Billy Levine on 11-21-2021 MCHC (RBC) [Mass/Vol] 32.9 g/dL 32.0-35.0 [facility] MCV Auto (RBC) [Entitic vol] Ordered By: Billy Levine on 11-21-2021 MCV (RBC) [Entitic vol] 84.7 fL 80-100 F [facility] Monocytes Auto (Bld) [#/Vol] Ordered By: Billy Levine on 11-21-2021 Monocytes (Bld) [#/Vol] 1.2 10*3/uL 0.0-0.8 [facility] Monocytes/100 WBC Auto (Bld) Ordered By: Billy Levine on 11-21-2021 Monocytes/100 WBC (Bld) 7.1 % F [facility] Neutrophils Auto (Bld) [#/Vo l]Ordered By: Billy Levine on 11-21-2021 Neutrophils (Bld) [#/Vol] 14.2 10*3/uL 1.8-7.7 [facility] Neutrophils/100 WBC Auto (Bl d)Ordered By: Billy Levine on 11-21-2021 Neutrophils/100 WBC (Bld) 83.9 % [facility] Nitrite Test strip Ql (U)Ord ered By: Billy Levine on 11-21-2021 Nitrite Ql (U) Negative Negative [facility] No Panel InformationOrdered By: Billy Levine on 11-21-2021 Bedside Glucose Comment Glu2: cleaned meter [facility] Estimated GFR () > 60 mL/Min [facility] Comment on above: GFR estimated refere nce range: According to KDOQI guidelines, <60 ml/min/1.73m2 is sufficient to diagnose a patient with chronic kidney disease. Pharmacy Creatinine Clearance (Chem 93.05 [facility] Platelet mean volume Auto (B ld) [Entitic vol]Ordered By: Billy Levine on 11-21-2021 Platelet mean volume (Bld) [Entitic vol] 8.7 fL 6.3-10.7 [facility] Platelet poor plasma interna tional normalized ratio (INR) by coagulation assay (relatOrdered By: Billy Levine on 11-21-2021 INR Coag (PPP) [Relative time] 1.0 {INR} [facility] Comment on above: INR Therapeutic Rang e A) Pre- and Peroperative OAT started two weeks before surgery. NOT HIP SURGERY: 1.5 - 2.5 HIP SURGERY: 2 - 3 B) Primary and secondary prevention of venous THROMBOSIS: 2 - 3 C) Active venous thrombosis, pulmonary embolism and prevention of recurrent venous thrombosis: 2 - 3 D) Prevention of arterial thromboembolism including patients with mechanical heart valves: 3 - 4.5 Platelets Auto (Bld) [#/Vol] Ordered By: Billy Levine on 11-21-2021 Platelets (Bld) [#/Vol] 291 10*3/uL 150-450 [facility] Protein Auto test strip (U) [Mass/Vol]Ordered By: Billy Levine on 11-21-2021 Protein (U) [Mass/Vol] Negative Negative Fi [facility] Protein [Mass/volume] in Ser um or PlasmaOrdered By: Billy Levine on 11-21-2021 Protein [Mass/Vol] 6.1 g/dL 6.1-7.9 [facility] RBC Auto (Bld) [#/Vol]Ordere d By: Billy Levine on 11-21-2021 RBC (Bld) [#/Vol] 4.46 10*6/uL 3.60-5.00 [facility] Serum or plasma alanine rabago otransferase measurement without P-5'-P (enzymatic activiOrdered By: Billy Levine on 11-21-2021 ALT No additional P-5'-P [Catalytic activity/Vol] 13 U/L 10-60 [facility] Serum or plasma albumin/glob ulin mass ratioOrdered By: Billy Levine on 11-21-2021 Albumin/Globulin [Mass ratio] 0.9 {ratio} [facility] Serum or plasma alkaline lalit sphatase measurement (enzymatic activity/volume)Ordered By: Billy Levine on 11-21-2021 ALP [Catalytic activity/Vol] 83 U/L 32-92 [facility] Serum or plasma aspartate am inotransferase measurement (enzymatic activity/volume)Ordered By: Billy Levine on 11-21-2021 AST [Catalytic activity/Vol] 14 U/L 10-42 [facility] Serum or plasma calcium pedro urement (mass/volume)Ordered By: Billy Levine on 11-21-2021 Calcium [Mass/Vol] 9.2 mg/dL 8.2-10.2 [facility] Serum or plasma chloride lara surement (moles/volume)Ordered By: Billy Levine on 11-21-2021 Chloride [Moles/Vol] 93 mmol/L 95-114 [facility] Serum or plasma glucose pedro urement (mass/volume)Ordered By: Billy Levine on 11-21-2021 Glucose [Mass/Vol] 481 mg/dL 70-100 [facility] Comment on above: ADA recommended refe rence range Random Glucose Reference Range is dependent on time and content of last meal. Glucose of more than 200 mg/dL in a nonstressed, ambulatory subject supports the diagnosis of Diabetes Mellitus. Serum or plasma potassium me asurement (moles/volume)Ordered By: Billy Levine on 11-21-2021 Potassium [Moles/Vol] 4.2 mmol/L 3.5-5.1 [facility] Serum or plasma sodium measu rement (moles/volume)Ordered By: Billy Levine on 11-21-2021 Sodium [Moles/Vol] 129 mmol/L 136-146 [facility] Serum or plasma total biliru bin measurement (mass/volume)Ordered By: Billy Levine on 11-21-2021 Bilirubin [Mass/Vol] 0.7 mg/dL 0.3-1.2 [facility] Serum or plasma total carbon dioxide measurement (moles/volume)Ordered By: Billy Levine on 11-21-2021 CO2 [Moles/Vol] 22.9 mmol/L 22.0-30.0 [facility] Serum or plasma urea nitroge n measurement (mass/volume)Ordered By: Billy Leivne on 11-21-2021 Urea nitrogen [Mass/Vol] 13 mg/dL 9-23 [facility] Specific gravity Auto test s trip (U) [Rel density]Ordered By: Billy Levine on 11-21-2021 Specific gravity (U) [Rel density] 1.032 1.001-1.03 0 [facility] Urine clarity by refractomet ry automatedOrdered By: Billy Levine on 11-21-2021 Clarity Refractometry automated (U) Clear Clear [facility] Urine culture routineOrdered By: Billy Levine on 11-21-2021 Bacteria identified Cx Nom (U) 2 Days [facility] Urine glucose measurement by automated test strip (mass/volume)Ordered By: Billy Levine on 11-21-2021 Glucose Auto test strip (U) [Mass/Vol] >=1000 mg/dL Normal [facility] Urine hemoglobin detection b y automated test stripOrdered By: Billy Levine on 11-21-2021 Hemoglobin Auto test strip Ql (U) Negative Negative [facility] Urine lactic acid measuremen tOrdered By: Billy Levine on 11-21-2021 Lactate (U) [Moles/Vol] 1.4 mmol/L F [facility] Urine leukocyte esterase det ection by automated test stripOrdered By: Billy Levine on 11-21-2021 Leukocyte esterase Auto test strip Ql (U) Negative Negative [facility] Urobilinogen Auto test strip (U) [Mass/Vol]Ordered By: Billy Levine on 11-21-2021 Urobilinogen (U) [Mass/Vol] Normal mg/dL Normal [facility] pH Auto test strip (U)Ordere d By: Billy Levine on 11-21-2021 pH (U) 5.5 [pH] 5.0-9.0 [facility] ED NOTEon 06-24-2019 ED NOTE HNO ID: [id number] Author: Philip (Rn) MARLO López Service: ? Author Type: Registered Nurse Type: ED Notes Filed: 06/24/2019 7:50 PM Note Text: Discharge instructions discussed with pt including follow-up care, how to schedule follow-up appointments, medication use and side effects. Pt verbalized understanding. No questions or concerns as to care. IV removed with catheter tip intact. Pt AANDOx3 and ambulated out of ED w/ steady gait. [facility] ED NOTE HNO ID: [id number] Author: Philip LeeRn) MARLO López Service: ? Author Type: Registered Nurse Type: ED Notes Filed: 06/24/2019 7:10 PM Note Text: Report received from MARLO Blanco. [facility] ED NOTE HNO ID: [id number] Author: Alice LeeRn) MARLO Love Service: ? Author Type: Registered Nurse Type: ED Notes Filed: 06/24/2019 5:08 PM Note Text: Patient sts less itching and decreased redness after medications. Vital signs improved. [facility] ED NOTE HNO ID: [id number] Author: Alice LeeRn) MARLO Love Service: ? Author Type: Registered Nurse Type: ED Notes Filed: 06/24/2019 5:08 PM Note Text: Pt c/o of severe itching and rash with throat burning after eating at [employer] and going to the pet store. Patient stable on arrival with unlabored respers. Dr. Fonseca to bedside to assess pt. [facility] ED NOTE HNO ID: [id number] Author: Thais LeeRn) MARLO Godwin Service: ? Author Type: Registered Nurse Type: ED Notes Filed: 06/24/2019 4:44 PM Note Text: Bed: 02-ED Expected date: Expected time: Means of arrival: Comments: [facility] ED PROV NOTEon 06-24-2019 ED PROV NOTE HNO ID: [id number] Author: Arpit Fonseca DO (Bryan) Service: Emergency Medicine Author Type: Physician Type: ED Provider Notes Filed: 06/24/2019 7:35 PM Note Text: ED Provider Note Patient Name: Bina Campos SERVICE DATE: 06/24/19 History Patient presents with: Allergic Reaction: used IM epi already. unknown of what she came into contact with. +tingling to mouth HPI Patient presenting to the emergency department for evaluation of an allergic reaction. Patient reports that she is an allergy, unsure what, has been tested. Reports she ate at [employer] and then around 3:30 noted some lip swelling/tingling and whole body itching. She then felt her throat tightening up and took her EpiPen around 4. This did mildly improve symptoms. Since then she's had persistent diffuse body itching and redness. Lip swelling has improved as well. No nausea/emesis, no sob. PAST MEDICAL HISTORY Diagnosis Date - Asthma, Chronic - Diabetes - Endometriosis - Menorrhagia, Premenopausal - Migraine Headache PAST SURGICAL HISTORY Procedure Laterality Date - REMOVAL OF TONSILS,<12 Y/O Tonsillectomy - VAGINAL HYSTERECTOMY 2006 Hysterectomy, vaginal - secondary to endometriosis FAMILY HISTORY Problem Relation Age of Onset - Alcohol/Drug Mother - Alcohol/Drug Paternal Grandmother - Alcohol/Drug Maternal Grandmother - Asthma Brother - Arthritis Brother - Arthritis Mother - Arthritis Father - Cancer Maternal Grandfather - Heart Mother - Diabetes Maternal Grandfather - Headache Mother - Headache Brother - Headache Maternal Grandmother - Hypertension Brother - Hypertension Father - Osteoporosis Father - Stroke Maternal Grandfather - Thyroid Paternal Grandmother Social History Tobacco Use - Smoking status: Current Every Day Smoker Packs/day: 0.50 Years: 10.00 Pack years: 5.00 Types: Cigarettes Substance and Sexual Activity - Alcohol use: Not on file - Drug use: Not on file - Sexual activity: Not on file ALLERGIES Allergen Reactions - Codeine Hives, Swelling, Shortness of Breath Review of Systems Constitutional: Negative. HENT: Positive for facial swelling. Negative for drooling, trouble swallowing and voice change. Eyes: Negative for visual disturbance. Respiratory: Negative for shortness of breath and stridor. Cardiovascular: Negative for chest pain. Gastrointestinal: Negative for abdominal pain, nausea and vomiting. Genitourinary: Negative. Musculoskeletal: Negative for neck pain. Skin: Positive for rash. Allergic/Immunologic: Negative for immunocompromised state. Neurological: Negative for weakness and headaches. Hematological: Does not bruise/bleed easily. Psychiatric/Behavioral: Negative for confusion. Physical Exam BP 192/96 Pulse 109 Resp 20 Ht 5' 9 (1.75m) Wt 197 lb (89.4kg) SpO2 100% BMI 29.08 kg/(m2). O2 Therapy: Room Air Physical Exam Constitutional: Appearance: Normal appearance. She is well-developed. She is not toxic-appearing. HENT: Head: Normocephalic and atraumatic. Mouth/Throat: Mouth: Mucous membranes are moist. Pharynx: Oropharynx is clear. Uvula midline. No pharyngeal swelling, oropharyngeal exudate, posterior oropharyngeal erythema or uvula swelling. Eyes: General: No scleral icterus. Conjunctiva/sclera: Conjunctivae normal. Neck: Musculoskeletal: Neck supple. Trachea: Trachea and phonation normal. No tracheal deviation. Cardiovascular: Rate and Rhythm: Normal rate and regular rhythm. Pulmonary: Effort: Pulmonary effort is normal. No respiratory distress. Breath sounds: Normal breath sounds and air entry. No stridor. No wheezing. Abdominal: General: There is no distension. Musculoskeletal: Normal range of motion. Comments: No deformities Skin: General: Skin is warm and dry. Capillary Refill: Capillary refill takes less than 2 seconds. Comments: Diffuse hives, erythema Neurological: Mental Status: She is alert and oriented to person, place, and time. Motor: No abnormal muscle tone. Coordination: Coordination normal. Gait: Gait normal. Diagnostic Testing ED Labs Ordered and Reviewed - No data to display Procedures ED Course / Clinical Impression Clinical Impressions as of Jun 24 1930 Anaphylaxis, initial encounter MDM / Disposition / Plan Pt presenting to the ed for evaluation of symptoms as per hpi. Clinical picture c/w anaphylaxis, had already received epi. Improving on arrival. Still some symptoms, given steroids, antihistamines. Improved in ED. No further progression of symptoms. Airway remained intact. Pt would like to go home. Stable for discharge. Discussed return precautions. Given rx for antihistamines, steroids, epipen for home. Review of old medical records show [facility] not [facility]. HANDP obtained from significant other. Medication(s) and/or therapy administered include as above. Disposition The patient was discharged. Counseled patient regarding suspected diagnosis. As well as the need for follow-up. Discharged home with verbal and written instructions. They were instructed to return as needed for persistent or worsening symptoms or any new concerns. Condition at disposition is stable and improved. SIGNATURE: DO Arpit Sesay DO (Bryan Bryan) [birth year] Normal [facility] Vital Signs Date Time Vital Sign Value Performing Clinician Facility 11-01-2024 16:25-0400 Body mass index (BMI) [Ratio] 34.58 kg/m2 Yodit Corea DO Work Phone: [facility] 11-01-2024 16:25-0400 Body weight 107.78 kg Yodit Barry-Tunica DO Work Phone: [facility] 11-01-2024 16:25-0400 Heart rate 88 /min Yodit Barry-Tunica DO Work Phone: [facility] 11-01-2024 16:25-0400 SaO2% (BldA) [Mass fraction] 99 % Yodit Barry-Tunica DO Work Phone: [facility] 07-20-2024 15:12-0500 Body mass index (BMI) [Ratio] 31.29 kg/m2 Yodit Barry-Tunica DO Work Phone: [facility] 07-20-2024 15:12-0500 Body weight 97.52 kg Yodit Barry-Tunica DO Work Phone: [facility] 07-20-2024 15:12-0500 Heart rate 88 /min Yodit Barry-Tunica DO Work Phone: [facility] 07-20-2024 15:12-0500 SaO2% (BldA) [Mass fraction] 99 % Yodit Barry-Tunica DO Work Phone: [facility] 07-01-2024 04:55-0500 Body temperature 98.2 [degF] Yodit Barry-Tunica DO Work Phone: [facility] 07-01-2024 04:55-0500 Diastolic blood pressure 70 mm[Hg] Yodit Barry-Tunica DO Work Phone: [facility] 07-01-2024 04:55-0500 Heart rate 82 /min Yodit Barry-Tunica DO Work Phone: [facility] 07-01-2024 04:55-0500 Respiratory rate 20 /min Yodit Barry-Tunica DO Work Phone: [facility] 07-01-2024 04:55-0500 SaO2% (BldA) [Mass fraction] 96 % Yodit Barry-Tunica DO Work Phone: [facility] 07-01-2024 04:55-0500 Systolic blood pressure 144 mm[Hg] Yodit Barry-Tunica DO Work Phone: [facility] 07-01-2024 00:39-0500 Body height 175.26 cm Yodit Barry-Tunica DO Work Phone: [facility] 07-01-2024 00:39-0500 Body weight 99.2 kg Yodit Barry-Tunica DO Work Phone: [facility] 12-16-2023 21:39-0400 Body height 175.26 cm PHYSICIAN NO [facility] [place] 12-16-2023 21:39-0400 Body temperature 100.8 [degF] PHYSICIAN NO [facility] 12-16-2023 21:39-0400 Body weight 90.71 kg PHYSICIAN NO [facility] [place] 12-16-2023 21:39-0400 Diastolic blood pressure 75 mm[Hg] PHYSICIAN NO [facility] 12-16-2023 21:39-0400 Heart rate 105 /min PHYSICIAN NO [facility] 12-16-2023 21:39-0400 Respiratory rate 18 /min PHYSICIAN NO [facility] 12-16-2023 21:39-0400 SaO2% (BldA) [Mass fraction] 99 % PHYSICIAN NO [facility] 12-16-2023 21:39-0400 Systolic blood pressure 146 mm[Hg] PHYSICIAN NO [facility] 08-03-2023 08:53-0500 Body mass index (BMI) [Ratio] 30.48 kg/m2 Yodit Barry-Tunica DO Work Phone: [facility] 08-03-2023 08:53-0500 Body weight 94.98 kg Yodit Barry-Tunica DO Work Phone: [facility] 08-03-2023 08:53-0500 Diastolic blood pressure 60 mm[Hg] Yodit Barry-Tunica DO Work Phone: [facility] 08-03-2023 08:53-0500 Heart rate 88 /min Yodit Barry-Tunica DO Work Phone: [facility] 08-03-2023 08:53-0500 SaO2% (BldA) [Mass fraction] 99 % Yodit Barry-Tunica DO Work Phone: [facility] 08-03-2023 08:53-0500 Systolic blood pressure 128 mm[Hg] Yodit Barry-Tunica DO Work Phone: [facility] 12-26-2022 19:16-0400 Diastolic blood pressure 90 mm[Hg] DO Yodit Barry-Tunica Work Phone: [facility] 12-26-2022 19:16-0400 Systolic blood pressure 170 mm[Hg] DO Yodit Barry-Tunica Work Phone: [facility] 12-26-2022 18:38-0400 Body height 175.26 cm DO Yodit Barry-Tunica Work Phone: [facility] 12-26-2022 18:38-0400 Body temperature 98.2 [degF] DO Yodit Barry-Tunica Work Phone: [facility] 12-26-2022 18:38-0400 Body weight 91.8 kg DO Yodit Barry-Tunica Work Phone: [facility] 12-26-2022 18:38-0400 Heart rate 89 /min DO Yodit Barry-Tunica Work Phone: [facility] 12-26-2022 18:38-0400 Respiratory rate 18 /min DO Yodit Barry-Tunica Work Phone: [facility] 12-26-2022 18:38-0400 SaO2% (BldA) [Mass fraction] 98 % DO Yodit Barry-Tunica Work Phone: [facility] 05-05-2022 11:38-0500 Blood Pressure Location Perez SALAM [facility] 05-05-2022 11:38-0500 Diastolic blood pressure 87 mm[Hg] Perez SALAM [facility] 05-05-2022 11:38-0500 Heart rate 86 /min Perez SALAM [facility] 05-05-2022 11:38-0500 Respiratory rate 16 /min Perez SALAM [facility] 05-05-2022 11:38-0500 SaO2% (BldA) [Mass fraction] 91 % Perez SALAM [facility] 05-05-2022 11:38-0500 Systolic blood pressure 127 mm[Hg] Perez SALAM [facility] 04-15-2022 21:03-0400 Diastolic blood pressure 91 mm[Hg] [facility] 04-15-2022 21:03-0400 Heart rate 118 /min [facility] 04-15-2022 21:03-0400 Respiratory rate 19 /min [facility] 04-15-2022 21:03-0400 SaO2% (BldA) [Mass fraction] 98 % [facility] 04-15-2022 21:03-0400 Systolic blood pressure 171 mm[Hg] [facility] 04-15-2022 16:22-0400 Body height 175.26 cm [facility] 04-15-2022 16:22-0400 Body weight 97.7 kg [facility] 04-15-2022 15:38-0400 Body temperature 98.6 [degF] [facility] 04-13-2022 00:37-0400 Diastolic blood pressure 66 mm[Hg] [facility] 04-13-2022 00:37-0400 Heart rate 88 /min [facility] 04-13-2022 00:37-0400 Respiratory rate 18 /min [facility] 04-13-2022 00:37-0400 SaO2% (BldA) [Mass fraction] 98 % [facility] 04-13-2022 00:37-0400 Systolic blood pressure 129 mm[Hg] [facility] 04-12-2022 18:14-0400 Body temperature 98.6 [degF] [facility] 04-12-2022 18:14-0400 Diastolic blood pressure 69 mm[Hg] [facility] 04-12-2022 18:14-0400 Heart rate 86 /min [facility] 04-12-2022 18:14-0400 Respiratory rate 16 /min [facility] 04-12-2022 18:14-0400 SaO2% (BldA) [Mass fraction] 99 % [facility] 04-12-2022 18:14-0400 Systolic blood pressure 118 mm[Hg] [facility] 04-12-2022 09:00-0400 Diastolic blood pressure 86 mm[Hg] [facility] 04-12-2022 09:00-0400 Heart rate 81 /min [facility] 04-12-2022 09:00-0400 SaO2% (BldA) [Mass fraction] 93 % [facility] 04-12-2022 09:00-0400 Systolic blood pressure 167 mm[Hg] [facility] 04-12-2022 07:11-0400 Body height 175.26 cm [facility] 04-12-2022 07:11-0400 Body weight 86.18 kg [facility] 04-12-2022 07:10-0400 Body temperature 98.2 [degF] [facility] 03-08-2022 19:08-0400 Body height 175.26 cm [facility] 03-08-2022 19:08-0400 Body temperature 99.1 [degF] [facility] 03-08-2022 19:08-0400 Body weight 90.85 kg [facility] 03-08-2022 19:08-0400 Diastolic blood pressure 94 mm[Hg] [facility] 03-08-2022 19:08-0400 Heart rate 97 /min [facility] 03-08-2022 19:08-0400 Respiratory rate 18 /min [facility] 03-08-2022 19:08-0400 SaO2% (BldA) [Mass fraction] 99 % [facility] 03-08-2022 19:08-0400 Systolic blood pressure 195 mm[Hg] [facility] 11-23-2021 11:23-0400 Body temperature 98.2 [degF] PHYSICIAN NO [facility] 11-23-2021 11:23-0400 Diastolic blood pressure 79 mm[Hg] PHYSICIAN NO [facility] 11-23-2021 11:23-0400 Heart rate 73 /min PHYSICIAN NO [facility] 11-23-2021 11:23-0400 Respiratory rate 12 /min PHYSICIAN NO [facility] 11-23-2021 11:23-0400 SaO2% (BldA) [Mass fraction] 99 % PHYSICIAN NO [facility] 11-23-2021 11:23-0400 Systolic blood pressure 145 mm[Hg] PHYSICIAN NO [facility] 11-23-2021 06:00-0400 Body weight 86.3 kg PHYSICIAN NO [facility] 11-21-2021 09:58-0400 Body height 165.1 cm PHYSICIAN NO [facility] 11-21-2021 09:58-0400 Body mass index (BMI) [Ratio] 30.9 kg/m2 PHYSICIAN NO [facility] 11-21-2021 08:33-0400 Diastolic blood pressure 60 mm[Hg] PHYSICIAN NO [facility] 11-21-2021 08:33-0400 Heart rate 80 /min PHYSICIAN NO [facility] 11-21-2021 08:33-0400 Respiratory rate 18 /min PHYSICIAN NO [facility] 11-21-2021 08:33-0400 SaO2% (BldA) [Mass fraction] 99 % PHYSICIAN NO [facility] 11-21-2021 08:33-0400 Systolic blood pressure 115 mm[Hg] PHYSICIAN NO [facility] 11-21-2021 07:06-0400 Body temperature 99.2 [degF] PHYSICIAN NO [facility] 11-21-2021 02:43-0400 Body height 165.1 cm PHYSICIAN NO [facility] 11-21-2021 02:43-0400 Body mass index (BMI) [Ratio] 30.9 kg/m2 PHYSICIAN NO [facility] 11-21-2021 02:43-0400 Body weight 84.3 kg PHYSICIAN NO [facility] Encounters Encounter Date Encounter Type Care Provider Facility Start: 11-01-2024 End: 11-01-2024 ambulatory YODIT COREA Not Available Start: 11-01-2024 End: 11-01-2024 Office outpatient visit 40 minutes Yodit Corea DO Work Phone: [facility] Comment on above: Uncontrolled type 2 diabetes mellitus with hyperglycemia (CMS/HCC) (Primary Dx); Hypertension, essential (CMS/HCC); Hyperlipidemia LDL goal <70 (CMS/HCC); Nausea; Vomiting, unspecified vomiting type, unspecified whether nausea present; Statin myopathy; Moderate major depression (CMS/HCC); S/P hysterectomy Start: 07-20-2024 End: 07-20-2024 Office outpatient visit 25 minutes Yodit Corea DO Work Phone: [facility] Comment on above: Moderate major depre ssion (CMS/HCC) (Primary Dx); Uncontrolled type 2 diabetes mellitus with hyperglycemia (CMS/HCC); Chronic GERD; Statin myopathy; Hyperlipidemia LDL goal <70 (CMS/HCC); Type 2 diabetes mellitus with other specified complication (CMS/HCC) Start: 07-20-2024 End: 07-20-2024 ambulatory YODIT COREA Not Available Start: 07-01-2024 End: 07-01-2024 Emergency department patient visit Yodit Corea DO Work Phone: [facility] Work Phone: Start: 06-16-2024 End: 06-16-2024 Letter encounter Obdulia Dempsey BUSINESS DEVELOPMENT AGENT-FINANCIAL WELLNESS COACH Work Phone: [facility] Start: 03-11-2024 End: 03-11-2024 Letter encounter Obdulia Dempsey BUSINESS DEVELOPMENT AGENT-FINANCIAL WELLNESS COACH Work Phone: [facility] Start: 12-16-2023 End: 12-17-2023 Emergency department patient visit PHYSICIAN ROXANNA PEREZ [facility] Work Phone: Start: 11-30-2023 End: 11-30-2023 ambulatory YODIT COREA Not Available Start: 11-25-2023 End: 11-25-2023 ambulatory Yodit OlsonTunica [facility] Work Phone: Start: 11-25-2023 End: 11-25-2023 Departed Referred DO Yodit Barry-Tunica Work Phone: [facility] [place] Work Phone: Start: 08-03-2023 End: 08-03-2023 Office outpatient visit 25 minutes Yodit Corea DO Work Phone: [facility] Comment on above: Uncontrolled type 2 diabetes mellitus with hyperglycemia (CMS/HCC) (Primary Dx); Hyperlipidemia LDL goal <70 (CMS/HCC); Medication monitoring encounter; Mild major depression (HCC) (CMS/HCC); Anxiety; Statin myopathy; S/P hysterectomy Start: 12-26-2022 End: 12-26-2022 Emergency department patient visit DO Yodit Corea Work Phone: [facility] Work Phone: Start: 12-09-2022 End: 12-09-2022 Departed Referred DO Yodit Barry-Tunica Work Phone: [facility] [place] Work Phone: Start: 09-17-2022 Letter encounter Obdulia Dempsey BUSINESS DEVELOPMENT AGENT-FINANCIAL WELLNESS COACH Work Phone: [facility] Start: 05-18-2022 End: 08-17-[address] [facility] Facility:[facility] Start: 05-05-2022 End: 05-06-2022 ambulatory [facility] Facility:[facility] Start: 05-05-2022 End: 08-16-[address] [facility] Start: 05-05-2022 End: 05-05-2022 [facility] Start: 04-15-2022 End: 04-15-2022 Emergency department patient visit [facility] Start: 04-14-2022 ambulatory [facility] Facility :[facility] Start: 04-12-2022 End: 04-13-2022 Emergency department patient visit [facility] Facility:[facility] Start: 04-12-2022 End: 04-13-2022 Emergency department patient visit Ira Melgar [facility] Start: 04-12-2022 End: 04-12-2022 Emergency department patient visit [facility] Start: 04-05-2022 End: 04-05-2022 ambulatory NON STAFF [facility] Work Phone: Start: 04-05-2022 End: 04-05-2022 Departed Referred [facility] [place] Start: 03-12-2022 Letter encounter Obdulia Dempsey BUSINESS DEVELOPMENT AGENT-FINANCIAL WELLNESS COACH Work Phone: [facility] Start: 03-08-2022 End: 03-08-2022 Emergency department patient visit [facility] Start: 11-21-2021 End: 11-23-2021 Evaluation and management of inpatient PHYSICIAN NO [facility] Start: 11-21-2021 Admission to [facility] [place] PHYSICIAN NO [facility] [place] Start: 10-05-2019 ambulatory UNKNOWN PROVIDER Facili ty:[facility] Procedures Date Procedure Procedure Detail Performing Clinician Start: 07-20-2024 Hemoglobin glycosylated a1c Yodit Marita Barry-Tunica DO Work Phone: Start: 08-03-2023 Hemoglobin glycosylated a1c Yodit Kirkland Barry-Tunica DO Work Phone: Start: 04-27-2023 Mammography Yodit Gupta stephanie-Tunica DO Work Phone: Start: 12-15-2022 H/O: hysterectomy S/P hysterectomy S bandar Barry-Tunica DO Work Phone: Start: 04-15-2022 Computed tomography of abdomen and pelvis with contrast Start: 11-21-2021 Aerobic microbial culture PHYSICIAN NO FAMILY Start: 11-21-2021 Investigation of transfusion reaction PHYSICIAN NO FAMILY Start: 11-21-2021 SARS-CoV-2, Influenz a & RSV (PCR) PHYSICIAN NO FAMILY Start: 11-21-2021 Urine culture PHYSICIAN NO FAMILY Start: 11-21-2021 Incision and drainag e of perineal abscess PHYSICIAN NO FAMILY Start: 11-21-2021 Computed tomography of abdomen and pelvis with contrast PHYSICIAN NO FAMILY Start: 10-05-2019 FAMILY MEDICINE PSYC HOLOGY CONSULT UNKNOWN PROVIDER Start: 10-05-2019 PHARMACY DISEASE STA TE MANAGEMENT REFERRAL UNKNOWN PROVIDER Aerobic microbial culture H/O: hysterectomy S/P hysterectomy Yodit D Barry-Tunica DO Work Phone: H/O: hysterectomy S/P hysterectomy Yodit D Barry-Tunica DO Work Phone: SARS-CoV-2, Influenz a & RSV (PCR) Plan of Treatment Date Care Activity Detail Author Start: 12-10-2027 Lipid panel Cholesterol [facility] Start: 10-30-2025 Urine screening for protein Diabetes: Urine Protein Screening [facility] Start: 09-08-2025 Shingles (RZV) Vacci ne (1 of 2) Shingles (RZV) Vaccine (1 of 2) [facility] Start: 06-16-2025 Cholesterol [Mass/volume] in Serum or Plasma Cholesterol [facility] Start: 03-26-2025 Influenza vaccination [facility] Comment on above: Postponed from 02/25 (Patient Refused) Postponed from 02/25 (Patient Refused) Start: 03-07-2025 End: 03-07-2025 Patient encounter procedure 03/07/2025 3:30 PM EDT Office Visit [facility] [address] [place] [id number] Yodit Corea, DO [address] [place] [address] [facility] Start: 01-30-2025 Hemoglobin A1c measurement Diabetes: Hemoglobin A1C [facility] Start: 11-24-2024 Urine screening for protein Diabetes: Urine Protein Screening [facility] Start: 11-01-2024 End: 11-01-2024 Patient encounter procedure 11/01/2024 3:30 PM EDT Office Visit [facility] [address] [place] [id number] Yodit Corea, DO [address] [place] [address] [facility] Start: 10-18-2024 Hemoglobin A1c measurement Diabetes: Hemoglobin A1C [facility] Start: 08-14-2024 Glaucoma screening Diabetes: R etinopathy Screening [facility] Start: 07-01-2024 Bacteria identified in Urine by Culture Urine Culture [facility] Start: 07-01-2024 Urine culture [facility] Start: 04-27-2024 Screening for malign ant neoplasm of breast Mammogram [facility] Start: 04-13-2024 Urine screening for protein Diabetes: Urine Protein Screening [facility] Start: 03-27-2024 Influenza vaccination Influenza Vacc ine (#1) [facility] Start: 02-26-2024 COVID-19 Vaccine ( season) COVID-19 Vaccine ( season) [facility] Start: 02-26-2024 COVID-19 Vaccine ( season) COVID-19 Vaccine ( season) [facility] Start: 02-26-2024 Influenza vaccination Influenza [facility] ine [facility] Start: 12-16-2023 Plain chest X-ray XR chest 2V* [facility] Start: 12-10-2023 Creatinine measurement Basic Metabol ic Panel [facility] Start: 11-30-2023 End: 11-30-2023 Patient encounter procedure 11/30/2023 8:30 AM EDT Office Visit [facility] [address] [place] [phone] Yodit Corea, DO [address] [place] [address] [facility] Start: 11-01-2023 Hemoglobin A1c measurement Diabetes: Hemoglobin A1C [facility] Start: 08-03-2023 End: 08-03-2024 Comprehensive metabolic 2000 panel - Serum or Plasma Comprehensive metabolic panel Lab Routine Uncontrolled type 2 diabetes mellitus with hyperglycemia (CMS/HCC) Hyperlipidemia LDL goal <70 (CMS/HCC) Expected: 08/03/2023 (Approximate), Expires: 08/03/2024 [facility] Comment on above: Expected: 08/03/2023 (Approximate), Expires: 08/03/2024 Start: 08-03-2023 End: 08-03-2024 HEMOGRAM CBC WITHOUT DIFF ([facility]) HEMOGRAM CBC WITHOUT DIFF ([facility]) Lab Routine Uncontrolled type 2 diabetes mellitus with hyperglycemia (CMS/HCC) Medication monitoring encounter Expected: 08/03/2023 (Approximate), Expires: 08/03/2024 [facility] Work Phone: Comment on above: Expected: 08/03/2023 (Approximate), Expires: 08/03/2024 Start: 08-03-2023 End: 08-03-2024 Lipid 1996 panel - Serum or Plasma Lipid panel Lab Routine Uncontrolled type 2 diabetes mellitus with hyperglycemia ([facility]/HCC) Hyperlipidemia LDL goal <70 ([facility]) Expected: 08/03/2023 (Approximate), Expires: 08/03/2024 [facility] Comment on above: Expected: 08/03/2023 (Approximate), Expires: 08/03/2024 Start: 08-03-2023 End: 08-03-2024 Microalbumin/Creatinine panel in random Urine Microalbumin / creatinine urine ratio Lab Routine Uncontrolled type 2 diabetes mellitus with hyperglycemia ([facility]/HCC) Expected: 08/03/2023, Expires: 08/03/2024 [facility] Comment on above: Expected: 08/03/2023 , Expires: 08/03/2024 Start: 05-02-2023 Cholesterol [Mass/volume] in Serum or Plasma Cholesterol [facility] Start: 02-25-2023 Influenza vaccination Influenza Vacc ine (#1) [facility] Start: 04-15-2022 [facility] Start: 03-27-2022 Influenza vaccination Influenza Vacc ine (#1) [facility] Start: 11-21-2021 Aerobic microbial culture Aerobic Culture [facility] Start: 11-21-2021 Anaerobic microbial culture Anaerobic Culture [facility] Start: 11-21-2021 Bacteria identified in Blood by Culture Blood Culture [facility] Start: 11-21-2021 Bacteria identified in Urine by Culture Urine Culture [facility] Start: 11-21-2021 Blood culture for bacteria, including anaerobic screen Blood Culture [facility] Start: 11-21-2021 Incision and drainag e of perineal abscess OR Perineal Abscess I&D/Rectal EUA [facility] Start: 09-08-2020 Screening for malign ant neoplasm of colon [facility] Start: 09-10-2019 Tetanus vaccination Tetanus (T d or Tdap) Booster [facility] Start: 04-17-2019 Basic metabolic 2000 panel - Serum or Plasma Basic Metabolic Panel [facility] Start: 2015 Screening for malign ant neoplasm of breast Mammography [facility] Start: 02-19-2015 Pneumococcal vaccination Pneumococcal Vaccine(s) (2 - PCV) [facility] Start: 09-08-1994 Hepatitis A (HAV) Vaccine (optional start 19+ years) Hepatitis A (HAV) Vaccine (optional start 19+ years) [facility] Start: 09-08-1994 Hepatitis B vaccination Hepati tis B (HBV) Vaccine (1 of 3 - 19+ 3-dose series) [facility] Start: 09-08-1993 Hepatitis C screening Hepatitis C An tibody [facility] Start: 03-11-1976 COVID-19 Vaccine (#1) COVID-19 Vacci ne (#1) [facility] Start: 1975 Screening for malign ant neoplasm of [facility] Bacteria identified in Blood by Culture [facility] Work Phone: Bacteria identified in Unspecified specimen by Aerobe culture [facility] Work Phone: Bacteria identified in Urine by Culture [facility] Work Phone: Patient Education [facility] Work Phone: Patient referral [facility] Work Phone: Superficial Wound Culture Superficial Wound Culture [facility] Immunizations Immunization Date Immunization Notes Care Provider [facility] 06-16-2020 diphtheria, tetanus toxoids and acellular pertussis vaccine Yodit Jose DO Work Phone: [facility] 03-30-2019 influenza, injectabl e, quadrivalent, contains preservative Obdulia Cornes Ribadas BUSINESS DEVELOPMENT AGENT-FINANCIAL WELLNESS COACH Work Phone: [facility] 03-30-2019 influenza virus vaccine, unspecified formulation Obdulia Cornes Ribadas BUSINESS DEVELOPMENT AGENT-FINANCIAL WELLNESS COACH Work Phone: [facility] 03-16-2018 influenza virus vaccine, unspecified formulation Obdulia Cornes Ribadas BUSINESS DEVELOPMENT AGENT-FINANCIAL WELLNESS COACH Work Phone: [facility] 03-16-2018 influenza, unspecifi ed formulation Perez SALAM [facility] 04-27-2017 influenza virus vaccine, unspecified formulation Perez SALAM [facility] 04-27-2017 influenza, injectabl e, quadrivalent, preservative free Obdulia Cornes Ribadas BUSINESS DEVELOPMENT AGENT-FINANCIAL WELLNESS COACH Work Phone: [facility] 05-11-2016 influenza, injectabl e, quadrivalent, preservative free Obdulia Yadav Ribadas BUSINESS DEVELOPMENT AGENT-FINANCIAL WELLNESS COACH Work Phone: [facility] 04-21-2015 influenza virus vaccine, unspecified formulation Ana SESAY [facility] 04-21-2015 influenza, injectabl e, quadrivalent, preservative free Obdulia Yadav Ribadas BUSINESS DEVELOPMENT AGENT-FINANCIAL WELLNESS COACH Work Phone: [facility] Work Phone: 02-19-2014 pneumococcal polysaccharide vaccine, 23 valent Obdulia Yadav Ribadas BUSINESS DEVELOPMENT AGENT-FINANCIAL WELLNESS COACH Work Phone: [facility] Work Phone: 11-03-2009 measles, mumps and rubella virus vaccine Obdulia Yadav Ribadas BUSINESS DEVELOPMENT AGENT-FINANCIAL WELLNESS COACH Work Phone: [facility] 09-16-2009 measles, mumps and rubella virus vaccine Obduliajennifer Yadav Ribadas BUSINESS DEVELOPMENT AGENT-FINANCIAL WELLNESS COACH [facility] 09-16-2009 tuberculin skin test ; purified protein derivative solution, intradermal Obdulia Yadav Ribadas BUSINESS DEVELOPMENT AGENT-FINANCIAL WELLNESS COACH Work Phone: [facility] 2009 tetanus toxoid, redu eric diphtheria toxoid, and acellular pertussis vaccine, adsorbed Obduliashira Yadav Ribrudis BUSINESS DEVELOPMENT AGENT-[facility] Work Phone: [facility] 2009 tuberculin skin test ; purified protein derivative solution, intradermal Obdulia Ghoshs Ribadas BUSINESS DEVELOPMENT AGENT-FINANCIAL WELLNESS COACH Work Phone: [facility] NEGATED: Highlighted row has not occurred!05-05-2022 SARS-CoV-2 mRNA (tozinameran 5y-11y) vaccine Ana SESAY [facility] Payers Date Payer Category Payer Private Health Insurance [id number] 2023 Self-pay [id number] 2023 Unknown BCBS BCBS [id number] 2023-Present [phone] [address] [place] [address] [id number] 2023 Unknown [id number] 2022 Unknown [id number] 2017 Commercial Managed C are - HMO [employer] - HMO/PPO/POS [id number] 2017 Private Health Insurance [id number] 2017 Unknown [id number] 1975 Unknown [id number] 1975 Unknown [id number]. [id number] 1975 Unknown [id number]. [id number] 1975 Unknown [id number]. [id number] 1975 Unknown [id number]. [id number] 1975 Unknown [id number]. [id number] 1975 Unknown [id number]. [id number] 1975 Unknown [id number] [id number] Private Health Insurance [facility] Finomial Claims [id number] Unknown [id number] [id number] Unknown [id number]. 2.531 Unknown [id number] [id number] Social History Date Type Detail Facility Start: 11-21-2021 End: 12-16-2023 Tobacco smoking status [facility] Never smoked tobacco (finding) [facility] Start: 1975 Sex Assigned At Female F [facility] Start: 11-21-2021 End: 07-20-2024 Tobacco smoking status SDIS Ex-smoker (finding) [facility] Start: 04-02-2019 Tobacco smoking status SDIS Smokes tobacco daily [facility] End: 06-27-2018 History of tobacco use Cigarette Smoker [facility] End: 06-27-2018 History of tobacco use Smoker (finding) [facility] Start: 04-02-2019 End: 12-15-2022 Cigarettes smoked current (pack per day) - Reported 0.1 [facility] Start: 04-02-2019 Tobacco use and exposure Former smokeless tobacco user [facility] Start: 04-02-2019 Alcohol intake Current non-dr [employer] 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 Start: 12-15-2022 End: 11-30-2023 Sex Assigned At Female [facility] Tobacco smoking status Never [facility] Start: 12-15-2022 End: 07-20-2024 Tobacco use and exposure Smokeless tobacco non-user [facility] Start: 08-03-2023 End: 11-05-2024 Alcohol intake Current drinker of alcohol (finding) [facility] How often to you hav e a drink containing alcohol? Monthly or less [facility] How many standard drinks containing alcohol do you have on a typical day? 1 or 2 [facility] How often do you hav e 6 or more drinks on 1 occasion? Never [facility] Start: 04-12-2023 Alcohol Comment 1-2 drinks;mon thly or less; caffeine: yes, coffee, soda [facility] Start: 04-30-2012 End: 07-01-2024 [facility] (finding[facility] NEGATED: Highlighted row [facility] Medical Equipment Procedure Code Equipment Code Equipment Origin al Text Equipment Identifier Dates Lancets Start: 06-08-2021 Pen Needle, Diab etic (Bd Ultra-Fine Symone Pen Needle) 32 gauge x 5/32 Needle Start: 06-08-2021 Lancets Start: 06-08-2021 Pen Needle, Diab etic (Bd Ultra-Fine Symone Pen Needle) 32 gauge x 5/32 Needle Start: 06-08-2021 [id number] Start: 07-17-2018 Use with Lantus daily. [id number] art: 08-21-2018 1 Strip 2 times daily Indications: Diabetes. Dx: DM T2, uncontrolled with long-term insulin use (Z79.4) (E11.65). [id number] Start: 04-02-2019 Lancets Start: 06-08-2021 Pen Needle, Diab etic (Bd Ultra-Fine Symone Pen Needle) 32 gauge x 5/32 Needle Start: 06-08-2021 Lancets Start: 06-08-2021 Pen Needle, Diab etic (Bd Ultra-Fine Symone Pen Needle) 32 gauge x 5/32 Needle Start: 06-08-2021 Lancets Start: 06-08-2021 Pen Needle, Diab etic (Bd Ultra-Fine Symone Pen Needle) 32 gauge x 5/32 Needle Start: 06-08-2021 Lancets Start: 06-08-2021 Pen Needle, Diab etic (Bd Ultra-Fine Symone Pen Needle) 32 gauge x 5/32 Needle Start: 06-08-2021 Use as instructed [id number] Start: 12-15-2022 End: 12-15-2023 Inject 1 each un neela the skin in the morning and 1 each at noon and 1 each in the evening and 1 each before bedtime. Inject before meals. [id number] Start: 06-28-2022 Lancets Start: 06-08-2021 Pen Needle, Diab etic (Bd Ultra-Fine Symone Pen Needle) 32 gauge x 5/32 Needle Start: 06-08-2021 Lancets Start: 06-08-2021 Pen Needle, Diab etic (Bd Ultra-Fine Symone Pen Needle) 32 gauge x 5/32 Needle Start: 06-08-2021 Blood Sugar Diag nostic Strip Start: 06-08-2021 Lancets Misc Start: 06-08-2021 Pen Needle, Diab etic (Bd Ultra-Fine Symone Pen Needle) 32 gauge x 5/32 Needle Start: 06-08-2021 Goals Date Patient Goal Desired Activity /State Personal health goal Functional Status Date Assessment Result Facility 05-05-2022 Functional Status No [facility] 04-12-2022 Functional Status N/A [facility] 11-23-2021 Functional status Patient at Baseline [facility] Work Phone: 05-17-2014 Are you deaf, or do you have serious difficulty hearing No 05/17/2014 12:14 PM Olivia Johnson, MARLO No [facility] 05-17-2014 Are you blind, or do you have serious difficulty seeing, even when wearing glasses No 05/17/2014 12:14 PM Olivia Johnson RN No [facility] 05-17-2014 Do you have serious difficulty walking or climbing stairs No 05/17/2014 12:14 PM Olivia Johnson RN No [facility] 05-17-2014 Do you have difficul ty dressing or bathing No 05/17/2014 12:14 PM Olivia Johnson RN No [facility] 05-17-2014 Because of a physica l, mental, or emotional condition, do you have difficulty doing errands alone such as visiting a physician's office or shopping No 05/17/2014 12:14 PM Olivia Johnson RN No [facility] Mental Status Date Assessment Result Facility 11-23-2021 Cognitive function Cognitive Sta tus Patient at Baseline [facility] Work Phone: 05-17-2014 Because of a physica l, mental, or emotional condition, do you have serious difficulty concentrating, remembering, or making decisions Yes 05/17/2014 12:14 PM Olivia Johnson RN Yes [facility] Clinical Notes 11-21-2021 to 11-05-2024 Yodit Corea, - 11/05/2024 9:50 PM EDTSbandar Corea, DO - 11/05/2024 9:47 PM EDChen Corea, DO - 11/05/2024 9:47 PM EDChen Corea, DO - 11/01/2024 4:36 PM EDT Note Date & Type Note Facility 11-05-2024 History of Present illness Narrative Associated Problem(s): Hypertension, essential (CMS/HCC) Her BP is elevated today and has been at at least her last couple of visit. She has DM, so ACEi/ARB is recommended for renal protection. She can monitor her BP as out-patient and if readings are consistently >135/85, she will need to let me know and dose can be increased. Associated Problem(s): Moderate major depression (CMS/HCC) Sx control is stable Associated Problem(s): Hyperlipidemia LDL goal <70 (CMS/HCC) She has not been able to tolerate statin therapy. Once we get more consistent glucose readings, would consider starting her on zetia. Associated Problem(s): Uncontrolled type 2 diabetes mellitus with hyperglycemia (CMS/HCC) While her A1c has improved from 14.3% to 12%, it is still not controlled. She knows that need to get DM under (much) better control. With uncontrolled DM, her risk for the developing and progression of DM-related complications. --- Her glucose 9PM to midnight her glucose is good into the 80s and then it will shoot up to 250-300 and will stay there until AM. While 80-90 would typically be considered okay, I feel her body is seeing this as too low and is responding and unfortunately over shooting and this is why her glucose is then so high. Need to decrease insulin to try to reduce the low glucose and thereby stop the hyperglycemic reaction. I would like her to change her toujeo to AM instead of evening dosing. If she continues to have spiking glucose readings, we will make additional changes Subjective Patient ID: Bina Campos (: 1975) is a 49 y.o. female who presents for Routine 4 Mo Follow Up. HPI : Bina is being seen today for a routine four month follow up. She had lab work done for today's visit. The results and any recommendations will be reviewed with her. Care gaps indicate recommendation for a few screenings at this time. ( ie: MMG, CRC and a diabetic eye exam) (She last had a MMG done on 04/27/23 at [facility]). These recommendations will be reviewed with pt today. Diabetes Management -DM was diagnosed several years ago -Associated complications: Hx of diabetic foot ulcers, Gastroparesis and HLD. 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 She states that this has been helpful for her to see how her glucose is affected by what she eats. -Previous A1c completed: in 06/2024 = 14.3% -Most recent A1c: in 10/2024 = 12% (some improvement, but remains uncontrolled) -Last DEEDEE: 10/2024 (alb/creat ratio = 144) -Last lipids: 10/2024 (LDL= 189) -Last DM eye exam completed: 08/14/22 (07/20/24 - pt reports she had to cancel her eye exam d/t vertigo and needs to reschedule this) She has been noticing that her glucose will be running good from supper to midnight and then it will spike to ~300s. Discussed her readings and note that glucose has been decreasing to <90 prior to spiking up Current Outpatient Medications Medication Instructions albuterol HFA 90 mcg/act inhaler 1 puff, Every 4 hours PRN Continuous Glucose Sensor (FreeStyle Brian 3 Sensor) misc 1 Device, Does not apply, Every 14 days escitalopram (LEXAPRO) 10 mg, Oral, Daily insulin lispro (HumaLOG KWIKPEN) 200 UNIT/ML solution pen-injector pen Check glucose prior to meals. Administer dose as directed by sliding scale:150-200- 2 units; 201-250- 4 units: 251-300- 6 units; 301-350- 8 units; 351-400- 10 units; 401-450- 12 units losartan (COZAAR) 50 mg, Oral, Daily Mounjaro 2.5 mg, Subcutaneous, Weekly Naproxen Sodium (ALEVE PO) 1 tablet, Daily ondansetron ODT (ZOFRAN-ODT) 4 mg, Oral, Every 8 hours PRN Toujeo SoloStar 30 Units, Subcutaneous, Nightly Unifine Pentips 32G X 4 MM misc 1 each, 4 times daily before meals and nightly Allergies Allergen Reactions Codeine Hives, Shortness of breath and Swelling Latex Itching and Rash Other Reaction(s): Difficulty Breathing, Other Ciprofloxacin Hives Dulaglutide GI intolerance N/v/d Metformin Diarrhea Penicillins Hives Jardiance [Empagliflozin] Pt reports yeast infections and bladder infections from taking this medication (A1c was >10% when this was prescribed) Fluticasone Other Other Reaction(s):Nasal ulcer Statins Other Other Reaction(s): Myalgias Sulfamethoxazole-Trimethoprim GI intolerance Patient Active Problem List Diagnosis Anxiety Hyperlipidemia LDL goal <70 ([facility]) Hypokalemia Moderate major depression ([facility]) S/P hysterectomy Uncontrolled type 2 diabetes mellitus with hyperglycemia ([facility]) Chronic GERD Dental caries Statin myopathy Hypertension, essential ([facility]) Social History Tobacco Use Smoking status: Former Current packs/day: 0.00 Types: Cigarettes Quit date: 2018 Years since quittin.3 Smokeless tobacco: Never Substance Use Topics Alcohol use: Yes Comment: 1-2 drinks;monthly or less; caffeine: yes, coffee, soda Drug use: Never Review of Systems Constitutional: Negative for activity change, appetite change, fatigue and unexpected weight change. HENT: Negative for ear pain, hearing loss, postnasal drip, sinus pain, trouble swallowing and voice change. Eyes: Negative for photophobia, pain and visual disturbance. Respiratory: Negative for cough, shortness of breath and wheezing. Cardiovascular: Negative for chest pain, palpitations and leg swelling. 10/2024 She reports she has been noticing some increased swelling-- not just in her legs, but also in her arms. She notes her hands are more likely to be swollen in AM. She will wearing compression stockings and will have designs on her legs when she takes them off. Gastrointestinal: Negative for abdominal distention, abdominal pain, blood in stool and nausea. Genitourinary: Negative for difficulty urinating, dysuria and hematuria. Musculoskeletal: Negative for arthralgias, back pain, gait problem and joint swelling. 06/2024- she reports she needs to have CTS, but has to get her DM under better control Skin: Negative for rash and wound. Neurological: Negative for dizziness, tremors, speech difficulty, weakness, numbness and headaches. Psychiatric/Behavioral: Negative for confusion, decreased concentration, hallucinations and sleep disturbance. Endocrine: Negative for polydipsia, polyphagia and polyuria. Allergic/Immunologic: Negative for immunocompromised state. Objective Vital signs: Pulse 88 Wt 237 lb 9.6 oz SpO2 99% BMI 34.58 kg/m BP> 180/90 on 2 occassions Recent Results (from the past 12 weeks) CBC Collection Time: 10/30/24 7:16 AM Result Value Ref Range WBC 7.8 3.4 - 10.8 x10E3/uL RBC 4.83 3.77 - 5.28 x10E6/uL Hgb 13.3 11.1 - 15.9 g/dL Hct 41.4 34.0 - 46.6 % MCV 86 79 - 97 fL MCH 27.5 26.6 - 33.0 pg MCHC 32.1 31.5 - 35.7 g/dL RDW 12.8 11.7 - 15.4 % Platelets 347 150 - 450 x10E3/uL Comprehensive metabolic panel Collection Time: 10/30/24 7:16 AM Result Value Ref Range Glucose 301 (H) 70 - 99 mg/dL BUN 21 6 - 24 mg/dL Creat 0.92 0.57 - 1.00 mg/dL EGFR 76 >59 mL/min/1.73 BUN/Creat Ratio 23 9 - 23 Sodium 138 134 - 144 mmol/L Potassium 5.3 (H) 3.5 - 5.2 mmol/L Chloride 100 96 - 106 mmol/L Carbon Dioxide 27 20 - 29 mmol/L Calcium 9.8 8.7 - 10.2 mg/dL Protein Total 6.2 6.0 - 8.5 g/dL Albumin 4.1 3.9 - 4.9 g/dL Globulin Total 2.1 1.5 - 4.5 g/dL Bili Total 0.2 0.0 - 1.2 mg/dL Alk Phosphatase 86 44 - 121 IU/L AST 31 15 - 59 IU/L ALT 38 (H) 0 - 35 IU/L Hemoglobin A1c Collection Time: 10/30/24 7:16 AM Result Value Ref Range HgbA1C 12.0 (H) 4.8 - 5.6 % Microalbumin / creatinine urine ratio Collection Time: 10/30/24 7:16 AM Result Value Ref Range Creat Ur 78.8 Not Estab. mg/dL Albumin Ur 113.5 Not Estab. ug/mL Alb/Creat Ratio Urine 144 (H) 0 - 29 mg/g creat Lipid panel Collection Time: 10/30/24 7:16 AM Result Value Ref Range Cholesterol, Total 266 (H) 100 - 199 mg/dL Triglycerides 105 0 - 149 mg/dL HDL Cholesterol 59 >39 mg/dL VLDL Cholesterol Shane 18 5 - 40 mg/dL LDL Chol Calc (NIH) 189 (H) 0 - 99 mg/dL Physical Exam Constitutional: Comments: Pt is alert and oriented, in no acute distress. Pt is well developed, well nourished and cooperative with exam. HENT: Head: Normocephalic. Ears: Comments: No obvious hearing deficits. Eyes: General: No scleral icterus. Extraocular Movements: Extraocular movements intact. Conjunctiva/sclera: Conjunctivae normal. Cardiovascular: Rate and Rhythm: Normal rate and regular rhythm. Pulmonary: Effort: Pulmonary effort is normal. Breath sounds: Normal breath sounds. Musculoskeletal: Cervical back: Normal range of motion. Right lower leg: No edema. Left lower leg: No edema. Comments: No significant abnormalities seen. General range of motion normal. Skin: General: Skin is warm and dry. Comments: No obvious rashes Neurological: General: No focal deficit present. Mental Status: She is alert and oriented to person, place, and time. Psychiatric: Mood and Affect: Mood normal. Behavior: Behavior normal. Thought Content: Thought content normal. Judgment: Judgment normal. Assessment/Plan Problem List Items Addressed This Visit Hyperlipidemia LDL goal <70 (CMS/HCC) Overview She has been intolerant to statin therapy 11/25/2023: NV=930; HDL=61; XI=932; RPF=792; TC/HDL=4.5 10/30/2024: TC-266; HDL=59; XQ=754; VQY=924 Current Assessment & Plan She has not been able to tolerate statin therapy. Once we get more consistent glucose readings, would consider starting her on zetia. Uncontrolled type 2 diabetes mellitus with hyperglycemia (CMS/HCC) - Primary Overview Previously prescribed Toujeo, metformin, glipizide, Januvia, Lantus and Trulicity -11/2021- started on Toujeo (had issues with cost). 02/24/22 added ozempic- but she could not tolerate. 07/2022- asked to resume the Trulicity 03/2023- she reports she never did restart the trulicity and is only taking metformin 1000 mg daily and Tresiba 20 units 07/2023- She had to stop the metformin due to the diarrhea issues. She increased the tresiba from 20u to 30u. Will add Jardiance 10 mg to help improve glucose control 11/2023: she reports she stop the jardiance a couple weeks ago due to issues with yeast . She is agreeable to resuming this due to additional benefits the medication provides (ie renal) --- 06/2024: she re-tried the jardiance, but had same issues with candidiasis. She is back on Toujeo (due to insurance) at 30 units -Will start SSI: Check glucose prior to meals. Administer dose as directed by sliding scale: 150-200- 2 units; 201-250- 4 units: 251-300- 6 units; 301-350- 8 units; 351-400- 10 units; 401-450- 12 units If glucose is >400, give the dosing as per the sliding scale; drink water, walk around and repeat dosing in 2 hours (at 1/2 dose that is recommended). 10/2024- recommend started Mounjaro to help improve glucose control. This may allow the dose of insulin to be decreased and thereby reduce her hypoglycemic episodes and better level out her glucose readings Current Assessment & Plan While her A1c has improved from 14.3% to 12%, it is still not controlled. She knows that need to get DM under (much) better control. With uncontrolled DM, her risk for the developing and progression of DM-related complications. --- Her glucose 9PM to midnight her glucose is good into the 80s and then it will shoot up to 250-300 and will stay there until AM. While 80-90 would typically be considered okay, I feel her body is seeing this as too low and is responding and unfortunately over shooting and this is why her glucose is then so high. Need to decrease insulin to try to reduce the low glucose and thereby stop the hyperglycemic reaction. I would like her to change her toujeo to AM instead of evening dosing. If she continues to have spiking glucose readings, we will make additional changes Relevant Medications Tirzepatide (Mounjaro) 2.5 MG/0.5ML solution auto-injector Hypertension, essential (CMS/HCC) Overview Started on ARB (losartan) 10/2024 Current Assessment & Plan Her BP is elevated today and has been at at least her last couple of visit. She has DM, so ACEi/ARB is recommended for renal protection. She can monitor her BP as out-patient and if readings are consistently >135/85, she will need to let me know and dose can be increased. Relevant Medications losartan (Cozaar) 50 MG tablet Moderate major depression (CMS/HCC) Overview Prescribed escitalopram 11/2023- she reports she has typically only been taking 5 mg of the lexapro. Advised today to take 10 mg consistently Current Assessment & Plan Sx control is stable S/P hysterectomy Statin myopathy Other Visit Diagnoses Nausea Relevant Medications ondansetron ODT (Zofran-ODT) 4 MG disintegrating tablet Vomiting, unspecified vomiting type, unspecified whether nausea present Relevant Medications ondansetron ODT (Zofran-ODT) 4 MG disintegrating tablet Health Maintenance Topic Date Due Colorectal Cancer Screening Never done Mammogram 04/27/2024 Diabetes: Retinopathy Screening 08/14/2024 Influenza Vaccine (Season Ended) 2025 (Originally 02/25/2025) Diabetes: Hemoglobin A1C 01/30/2025 Diabetes: Urine Protein Screening 10/30/2025 Immunization History Administered Date(s) Administered DTaP 06/16/2020 Influenza, injectable, quadrivalent 03/30/2019 Moderna SARS-CoV-2 Vaccination 05/11/2022 Pneumococcal Polysaccharide PPSV23 02/19/2014 I spent a total of 52 minutes on the date of the service which included: time spent preparing to see the patient by reviewing last office note and chronic conditions, talking to the patient/documenting in the chart, examining the patient, placing orders in the chart and documenting in the chart after the visit. Protocols reviewed and updated. A collaborative plan of care has been created for pt regarding specific health concerns. Any barriers to care have been identified and addressed. Any part of this document that has been added/copied from other documents has been reviewed for accuracy and updated as appropriate at the time of the patient encounter. -Follow up in about 4 months (around 03/04/2025) for annual preventive visit. Yodit Corea D.O. Board Certified [employer] P[employer] Supervisor documented in this encounter [facility] 08-12-2024 History of Present illness Narrative Associated Problem(s): Hyperlipidemia LDL goal <70 (CMS/HCC) Reinforced importance of dietary modification regular cardiovascular activity or half-way management/control of lipids. Since she has been intolerant to statin therapy, would consider addition of Zetia. High cholesterol (especially LDL) is associated with an elevated risk of cardiovascular disease. This includes coronary artery disease. stroke and peripheral vascular disease. High cholesterol has also been linked to diabetes and high blood pressure risks. By appropriately treating LDL, these risks can be reduced. Associated Problem(s): Chronic GERD -Pt advised to avoid food triggers and follow conservative management measures (including avoiding tight fitting pants, weight management, and elevating HOB as indicated) to keep GERD symptoms under control. -Take medications as recommended and monitor for alarm symptoms . Associated Problem(s): Moderate major depression (CMS/HCC) stable Associated Problem(s): Uncontrolled type 2 diabetes mellitus with hyperglycemia (CMS/HCC) She knows that need to get DM under (much) better control. With uncontrolled DM, her risk for the developing and progression of DM-related complications. -Chart reviewed to make sure patient is up to date on screenings for DM related comorbidities (ie annual dilated eye exam, annual DEEDEE and other labs and reminded to do daily foot exams). Specific goals for A1c and BP were reviewed and ways to achieve this goals discussed. Images from the original note were not included. Subjective Patient ID: Bina Campos (: 1975) is a 48 y.o. female who presents for Routine Follow Up. HPI : Bina is being seen today for a routine follow up. (Pt canceled her ov on 02/28/24 and was last seen in the office on 11/30/23) Lab results from 10/2023 are documented in EHR for reference. Care Gaps indicate recommendations for several screenings and vaccinations. These will be reviewed with pt during her visit. She declines the seasonal flu vaccine: updated EHR. She reports that she got really sick with covid back in May (seen in ER 06/23/2023) and was put on a high dose of prednisone for a week. She reports that ever since then her blood sugars have been running in the 300-500 and her BP has been elevated. 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 Within 30 mins, her BP was back down to 120/72. She is very frustrated because she doesn't understand why her blood sugars continue to be so elevated and why her BP is up. Pt denies any hx of having high blood pressure. Diabetes Management -DM was diagnosed several years ago -Associated complications: Hx of diabetic foot ulcers, Gastroparesis and HLD. 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 She states that this has been helpful for her to see how her glucose is affected by what she eats. -Previous A1c completed: in 11/2023 = 12.1% -Most recent A1c: in 06/2024 = 14.3% -Last DEEDEE: 10/2023 -Last lipids: 10/2023 -Last DM eye exam completed: 08/14/22 (07/20/24 - pt reports she had to cancel her eye exam d/t vertigo- it is rescheduled 08/16/2024) Current Outpatient Medications Medication Instructions albuterol HFA 90 mcg/act inhaler 1 puff, Every 4 hours PRN Continuous Glucose Sensor (FreeStyle Brian 3 Sensor) misc 1 Device, Does not apply, Every 14 days escitalopram (LEXAPRO) 10 mg, Oral, Daily insulin lispro (HumaLOG KWIKPEN) 200 UNIT/ML solution pen-injector pen Check glucose prior to meals. Administer dose as directed by sliding scale:150-200- 2 units; 201-250- 4 units: 251-300- 6 units; 301-350- 8 units; 351-400- 10 units; 401-450- 12 units Naproxen Sodium (ALEVE PO) 1 tablet, Daily ondansetron ODT (Zofran-ODT) 4 MG disintegrating tablet DISSOLVE 1 TABLET ON THE TONGUE EVERY 4-6 HOURS NEEDED FOR 10 DAYS Toujeo SoloStar 30 Units, Subcutaneous, Nightly Unifine Pentips 32G X 4 MM misc 1 each, 4 times daily before meals and nightly Allergies Allergen Reactions Codeine Hives, Shortness of breath and Swelling Latex Itching and Rash Other Reaction(s): Difficulty Breathing, Other Ciprofloxacin Hives Dulaglutide GI intolerance N/v/d Metformin Diarrhea Penicillins Hives Jardiance [Empagliflozin] Pt reports yeast infections and bladder infections from taking this medication (A1c was >10% when this was prescribed) Fluticasone Other Other Reaction(s):Nasal ulcer Statins Other Other Reaction(s): Myalgias Sulfamethoxazole-Trimethoprim GI intolerance Patient Active Problem List Diagnosis Anxiety Hyperlipidemia LDL goal <70 ([facility]) Hypokalemia Moderate major depression ([facility]) S/P hysterectomy Uncontrolled type 2 diabetes mellitus with hyperglycemia ([facility]) Chronic GERD Dental caries Statin myopathy Social History Tobacco Use Smoking status: Former Current packs/day: 0.00 Types: Cigarettes Quit date: 2018 Years since quittin.1 Smokeless tobacco: Never Substance Use Topics Alcohol use: Yes Comment: 1-2 drinks;monthly or less; caffeine: yes, coffee, soda Drug use: Never Review of Systems Constitutional: Negative for activity change, appetite change, fatigue and unexpected weight change. HENT: Negative for ear pain, hearing loss, postnasal drip, sinus pain, trouble swallowing and voice change. Eyes: Negative for photophobia, pain and visual disturbance. Respiratory: Negative for cough, shortness of breath and wheezing. Cardiovascular: Negative for chest pain, palpitations and leg swelling. Gastrointestinal: Negative for abdominal distention, abdominal pain, blood in stool and nausea. Genitourinary: Negative for difficulty urinating, dysuria and hematuria. Musculoskeletal: Negative for arthralgias, back pain, gait problem and joint swelling. 06/2024- she reports she needs to have CTS, but has to get her DM under better control Skin: Negative for rash and wound. Neurological: Negative for dizziness, tremors, speech difficulty, weakness, numbness and headaches. Psychiatric/Behavioral: Negative for confusion, decreased concentration, hallucinations and sleep disturbance. Endocrine: Negative for polydipsia, polyphagia and polyuria. Allergic/Immunologic: Negative for immunocompromised state. Objective Vital signs: Pulse 88 Wt 215 lb SpO2 99% BMI 31.29 kg/m Initial BP 166/78; repeat 148/76 11/2023 ZI=758/74 WT 219# 07/2023 BP= 128/60 WT 209# Recent Results (from the past 12 weeks) POCT Glycated hemoglobin, total Collection Time: 07/20/24 3:03 PM Result Value Ref Range Hemoglobin A1C 14.3 Physical Exam Constitutional: Comments: Pt is alert and oriented, in no acute distress. Pt is well developed, well nourished and cooperative with exam. HENT: Head: Normocephalic. Ears: Comments: No obvious hearing deficits. Eyes: Extraocular Movements: Extraocular movements intact. Conjunctiva/sclera: Conjunctivae normal. Cardiovascular: Rate and Rhythm: Normal rate and regular rhythm. Pulmonary: Effort: Pulmonary effort is normal. Breath sounds: Normal breath sounds. Musculoskeletal: Cervical back: Normal range of motion. Right lower leg: No edema. Left lower leg: No edema. Comments: No significant abnormalities seen. General range of motion normal. Skin: General: Skin is warm and dry. Comments: No obvious rashes Neurological: General: No focal deficit present. Mental Status: She is alert and oriented to person, place, and time. Psychiatric: Thought Content: Thought content normal. Judgment: Judgment normal. 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 Since she has been intolerant to statin therapy, would consider addition of Zetia. High cholesterol (especially LDL) is associated with an elevated risk of cardiovascular disease. This includes coronary artery disease. stroke and peripheral vascular disease. High cholesterol has also been linked to diabetes and high blood pressure risks. By appropriately treating LDL, these risks can be reduced. Uncontrolled type 2 diabetes mellitus with hyperglycemia ([facility]) Overview Previously prescribed Toujeo, metformin, glipizide, Januvia, Lantus and Trulicity -11/2021- started on Toujeo (had issues with cost). 02/24/22 added ozempic- but she could not tolerate. 07/2022- asked to resume the Trulicity 03/2023- she reports she never did restart the trulicity and is only taking metformin 1000 mg daily and Tresiba 20 units 07/2023- She had to stop the metformin due to the diarrhea issues. She increased the tresiba from 20u to 30u. Will add Jardiance 10 mg to help improve glucose control 11/2023: she reports she stop the jardiance a couple weeks ago due to issues with yeast . She is agreeable to resuming this due to additional benefits the medication provides (ie renal) --- 06/2024: she re-tried the jardiance, but had same issues with candidiasis. She is back on Toujeo (due to insurance) at 30 units -Will start SSI: Check glucose prior to meals. Administer dose as directed by sliding scale: 150-200- 2 units; 201-250- 4 units: 251-300- 6 units; 301-350- 8 units; 351-400- 10 units; 401-450- 12 units If glucose is >400, give the dosing as per the sliding scale; drink water, walk around and repeat dosing in 2 hours (at 1/2 dose that is recommended). Current Assessment & Plan She knows that need to get DM under (much) better control. With uncontrolled DM, her risk for the developing and progression of DM-related complications. -Chart reviewed to make sure patient is up to date on screenings for DM related comorbidities (ie annual dilated eye exam, annual DEEDEE and other labs and reminded to do daily foot exams). Specific goals for A1c and BP were reviewed and ways to achieve this goals discussed. Relevant Medications insulin lispro (HumaLOG KWIKPEN) 200 UNIT/ML solution pen-injector pen Continuous Glucose Sensor (FreeStyle Brian 3 Sensor) misc Other Relevant Orders POCT Glycated hemoglobin, total (Completed) Moderate major depression (CMS/HCC) - Primary Overview Prescribed escitalopram 11/2023- she reports she has typically only been taking 5 mg of the lexapro. Advised today to take 10 mg consistently Current Assessment & Plan stable Chronic GERD Overview Prescribed prevacid Current Assessment & Plan -Pt advised to avoid food triggers and follow conservative management measures (including avoiding tight fitting pants, weight management, and elevating HOB as indicated) to keep GERD symptoms under control. -Take medications as recommended and monitor for alarm symptoms . Statin myopathy Other Visit Diagnoses Type 2 diabetes mellitus with other specified complication (CMS/[facility]) Health Maintenance Topic Date Due Colorectal Cancer Screening Never done Mammogram 04/27/2024 Influenza Vaccine (1) 03/26/2025 (Originally 02/26/2024) Diabetes: Retinopathy Screening 08/14/2024 Diabetes: Hemoglobin A1C 10/18/2024 Diabetes: Urine Protein Screening 11/24/2024 Immunization History Administered Date(s) Administered DTaP 06/16/2020 Influenza, injectable, quadrivalent 03/30/2019 Moderna SARS-CoV-2 Vaccination 05/11/2022 Pneumococcal Polysaccharide PPSV23 02/19/2014 -Patient's chronic conditions have been reviewed in preparation for this appointment. Protocols reviewed and updated. A collaborative plan of care has been created for pt regarding specific health concerns. Any barriers to care have been identified and addressed. Any part of this document that has been added/copied from other documents has been reviewed for accuracy and updated as appropriate at the time of the patient encounter. -Follow up in about 3 months (around 10/18/2024) for appt to follow up on DM (stared SSI) and BP. Yodit Corea D.O. Board Certified Dry Paste Supervisor documented in this encounter [facility] 07-20-2024 Instructions Yodit Corea DO - 07/20/2024 2:30 PM EST Check glucose prior to meals. Administer dose as directed by sliding scale: 150-200- 2 units; 201-250- 4 units: 251-300- 6 units; 301-350- 8 units; 351-400- 10 units; 401-450- 12 units If glucose is >400, give the dosing as per the sliding scale; drink water, walk around and repeat dosing in 2 hours (at 1/2 dose that is recommended). documented in this encounter [facility] 08-03-2023 History of Present illness Narrative Associated Problem(s): Mild major depression (HCC) (CMS/HCC) -Pt is doing fine on current rx. Based on review of patient's medications and current medical status; continuation of medications most appropriate. Compliance with medications and/or management recommendations encouraged. Monitor Associated Problem(s): Anxiety Overall reasonable control Associated Problem(s): Uncontrolled type 2 diabetes mellitus with hyperglycemia (CMS/HCC) Some improvement in overall glucose control, but still no where near where it needs to be. Will add SGLT2 for benefits with glucose improvement; as well as other benefits. Discussed potential SE and ways to reduce these. Images from the original note were not included. Subjective Patient ID: Bina Campos (: 1975) is a 47 y.o. female who presents for Routine 4 Mo Follow-up. HPI : Bina is being seen today for her routine four month follow-up with Dr. Barry. ---- Pt.'s lab results from 11/2022 and 03/2023 are documented in EHR for reference. ---- Pt reports she has been having loose stools from the metformin and has not been taking it d/t this. Pt reports that it is to the point that she thinks she has to pass gas and then ends up having stool incontinence instead. She stopped this ~6 weeks ago ---- Diabetes Management -DM was diagnosed several years ago -Associated complications: Hx of diabetic foot ulcers, Gastroparesis -Current Medications: Metformin (stopped 06/2023) and Tresiba -Currently reports doing FSBG checks once a week and readings rangin-200s -Previous A1c completed: in 03/2023 = 13.3% -Most recent A1c: in 06/2023 = 12.2% -Last DEEDEE: 04/13/2023- 100 mg/L (abnormal) -Last lipids: 11/2022 -Last DM eye exam completed: 08/14/22 (she will need to schedule for 2023) Findings on eye exam: No evidence of DR Current Outpatient Medications Medication Instructions albuterol HFA 90 mcg/act inhaler 1 puff, Inhalation, Every 4 hours PRN empagliflozin (JARDIANCE) 10 mg, Oral, Daily escitalopram (LEXAPRO) 10 mg, Oral, Daily ibuprofen 800 mg, Oral, 3 times daily PRN Insulin Pen Needle (pen needle 06/28 ) 29G X 12mm misc Use as instructed ondansetron ODT (Zofran-ODT) 4 MG disintegrating tablet DISSOLVE 1 TABLET ON THE TONGUE EVERY 4-6 HOURS NEEDED FOR 10 DAYS Tresiba FlexTouch 30 Units, Subcutaneous, Nightly Unifine Pentips 32G X 4 MM misc 1 each, Subcutaneous, 4 times daily before meals and nightly Allergies Allergen Reactions Codeine Hives, Shortness of breath and Swelling Latex Itching and Rash Other Reaction(s): Difficulty Breathing, Other Ciprofloxacin Hives Dulaglutide GI intolerance N/v/d Metformin Diarrhea Penicillins Hives Fluticasone Other Other Reaction(s):Nasal ulcer Statins Other Other Reaction(s): Myalgias Sulfamethoxazole-Trimethoprim GI intolerance Patient Active Problem List Diagnosis Anxiety Hyperlipidemia LDL goal <70 (CMS/HCC) Hypokalemia Mild major depression (HCC) (CMS/HCC) S/P hysterectomy Uncontrolled type 2 diabetes mellitus with hyperglycemia (CMS/HCC) Chronic GERD Dental caries Statin myopathy Review of Systems Objective Vital signs: BP 128/60 Pulse 88 Wt 209 lb 6.4 oz SpO2 99% BMI 30.48 kg/m Recent Results (from the past 2016 hour(s)) POCT Glycated hemoglobin, total Collection Time: 08/03/23 8:59 AM Result Value Ref Range Hemoglobin A1C 12.2 Physical Exam Constitutional: Comments: Pt is alert and oriented, in no acute distress. Pt is well developed, well nourished and cooperative with exam. HENT: Head: Normocephalic. Ears: Comments: No obvious hearing deficits. Eyes: Extraocular Movements: Extraocular movements intact. Conjunctiva/sclera: Conjunctivae normal. Cardiovascular: Rate and Rhythm: Normal rate and regular rhythm. Pulmonary: Effort: Pulmonary effort is normal. Breath sounds: Normal breath sounds. Musculoskeletal: Cervical back: Normal range of motion. Right lower leg: No edema. Left lower leg: No edema. Comments: No significant abnormalities seen. General range of motion normal. Skin: General: Skin is warm and dry. Comments: No obvious rashes Neurological: General: No focal deficit present. Mental Status: She is oriented to person, place, and time. Psychiatric: Mood and Affect: Mood normal. Behavior: Behavior normal. Thought Content: Thought content normal. Judgment: Judgment normal. Assessment/Plan Problem List Items Addressed This Visit Hyperlipidemia LDL goal <70 (CMS/HCC) Relevant Orders Comprehensive metabolic panel Lipid panel Uncontrolled type 2 diabetes mellitus with hyperglycemia (CMS/HCC) - Primary Overview Prescribed Toujeo, metformin, glipizide and Trulicity - she has been Rx'd metformin and amaryl. She has been prescribed Trulicity, Januvia and Lantus in the past.. 11/2021- started on Toujeo (had issues with cost). 02/24/22 added ozempic- but she could not tolerate. 07/2022- wants to resume the Trulicity 03/2023- she reports she never did restart the trulicity and is only taking metformin 1000 mg daily and Tresiba 20 units 07/2023- She had to stop the metformin due to the diarrhea issues. She increased the tresiba from 20u to 30u. Will add Jardiance 10 mg to help improve glucose control Current Assessment & Plan Some improvement in overall glucose control, but still no where near where it needs to be. Will add SGLT2 for benefits with glucose improvement; as well as other benefits. Discussed potential SE and ways to reduce these. Relevant Medications insulin degludec (Tresiba FlexTouch) 200 UNIT/ML injection empagliflozin (Jardiance) 10 MG Other Relevant Orders POCT Glycated hemoglobin, total (Completed) HEMOGRAM CBC WITHOUT DIFF ([facility]) Comprehensive metabolic panel Microalbumin / creatinine urine ratio Lipid panel Anxiety Overview Prescribed lexapro Current Assessment & Plan Overall reasonable control Mild major depression (HCC) (CMS/HCC) Overview Prescribed escitalopram Current Assessment & Plan -Pt is doing fine on current rx. Based on review of patient's medications and current medical status; continuation of medications most appropriate. Compliance with medications and/or management recommendations encouraged. Monitor S/P hysterectomy Statin myopathy Other Visit Diagnoses Medication monitoring encounter Relevant Orders HEMOGRAM CBC WITHOUT DIFF ([facility] [place]) Health Maintenance Topic Date Due Colorectal Cancer Screening Never done Influenza Vaccine (1) 02/25/2023 Diabetes: Hemoglobin A1C 11/01/2023 Diabetes: Urine Protein Screening 04/13/2024 Mammogram 04/27/2024 Diabetes: Retinopathy Screening 08/14/2024 Immunization History Administered Date(s) Administered DTaP 06/16/2020 Influenza, injectable, quadrivalent 03/30/2019 Moderna SARS-CoV-2 Vaccination 05/11/2022 Pneumococcal Polysaccharide PPSV23 02/19/2014 -Patient's chronic conditions have been reviewed in preparation for this appointment. Protocols reviewed and updated. A collaborative plan of care has been created for pt regarding specific health concerns. Any barriers to care have been identified and addressed. Any part of this document that has been added/copied from other documents has been reviewed for accuracy and updated as appropriate at the time of the patient encounter. -Follow up in about 4 months (around 12/02/2023) for Annual wellness/4 month follow up on chronic conditions. Yodit Corea D.O. Board Certified Dry Paste Supervisor documented in this encounter [facility] 08-03-2023 Instructions Yodit Corea DO - 08/03/2023 8:30 AM EST Start jardiance 10 mg daily Check insurance for formulary (others in class: fabetiga, invokana) documented in this encounter [facility] 05-05-2022 Evaluation + Plan note Future Scheduled TestsNM Gastric Emptying Study 05/05/[address] [facility] 04-13-2022 Hospital Discharge instructions Patient Education 04/13/2022 00:38:11 Near-Syncope Near-Syncope Near-syncope is when you suddenly feel like you might pass out (faint), but you do not actually lose consciousness. This may also be referred to as presyncope. During an episode of near-syncope, you may: Feel dizzy, weak, or light-headed. Feel nauseous. See all white or all black in your field of vision, or see spots. Have cold, clammy skin. This condition is caused by a sudden decrease in blood flow to the brain. This decrease can result from various causes, but most of those causes are not dangerous. However, near-syncope may be a sign of a serious medical problem, so it is important to seek medical care. Follow these instructions at home: Medicines Take towe-lgj-saejtvv and prescription medicines only as told by your health care provider. If you are taking blood pressure or heart medicine, get up slowly and take several minutes to sit and then stand. This can reduce dizziness. General instructions Pay attention to any changes in your symptoms. Talk with your health care provider about your symptoms. You may need to have testing to understand the cause of your near-syncope. If you start to feel like you might faint, lie down right away and raise (elevate) your feet above the level of your heart. Breathe deeply and steadily. Wait until all of the symptoms have passed. Have someone stay with you until you feel stable. Do not drive, use machinery, or play sports until your health care provider says it is okay. Drink enough fluid to keep your urine pale yellow. Keep all follow-up visits as told by your health care provider. This is important. Get help right away if you: Have a seizure. Have unusual pain in your chest, abdomen, or back. Faint once or repeatedly. Have a severe headache. Are bleeding from your mouth or rectum, or you have black or tarry stool. Have a very fast or irregular heartbeat (palpitations). Are confused. Have trouble walking. Have severe weakness. Have vision problems. These symptoms may represent a serious problem that is an emergency. Do not wait to see if your symptoms will go away. Get medical help right away. Call your local emergency services (911 in the [place] Do not drive yourself to the hospital. Summary Near-syncope is when you suddenly feel like you might pass out (faint), but you do not actually lose consciousness. This condition is caused by a sudden decrease in blood flow to the brain. This decrease can result from various causes, but most of those causes are not dangerous. Near-syncope may be a sign of a serious medical problem, so it is important to seek medical care. This information is not intended to replace advice given to you by your health care provider. Make sure you discuss any questions you have with your health care provider. Document Released: 06/13/2006 Document Revised: 10/05/2019 Document Reviewed: 05/02/2019 [employer] Patient Education 2020 [employer]. 04/13/2022 00:38:11 Syncope Syncope Syncope refers to a condition in which a person temporarily loses consciousness. Syncope may also be called fainting or passing out. It is caused by a sudden decrease in blood flow to the brain. Even though most causes of syncope are not dangerous, syncope can be a sign of a serious medical problem. Your health care provider may do tests to find the reason why you are having syncope. Signs that you may be about to faint include: Feeling dizzy or light-headed. Feeling nauseous. Seeing all white or all black in your field of vision. Having cold, clammy skin. If you faint, get medical help right away. Call your local emergency services (911 in the [place] Do not drive yourself to the hospital. Follow these instructions at home: Pay attention to any changes in your symptoms. Take these actions to stay safe and to help relieve your symptoms: Lifestyle Do not drive, use machinery, or play sports until your health care provider says it is okay. Do not drink alcohol. Do not use any products that contain nicotine or tobacco, such as cigarettes and e-cigarettes. If you need help quitting, ask your health care provider. Drink enough fluid to keep your urine pale yellow. General instructions Take yecm-iqx-gxabhov and prescription medicines only as told by your health care provider. If you are taking blood pressure or heart medicine, get up slowly and take several minutes to sit and then stand. This can reduce dizziness or light-headedness. Have someone stay with you until you feel stable. If you start to feel like you might faint, lie down right away and raise (elevate) your feet above the level of your heart. Breathe deeply and steadily. Wait until all the symptoms have passed. Keep all follow-up visits as told by your health care provider. This is important. Get help right away if you: Have a severe headache. Faint once or repeatedly. Have pain in your chest, abdomen, or back. Have a very fast or irregular heartbeat (palpitations). Have pain when you breathe. Are bleeding from your mouth or rectum, or you have black or tarry stool. Have a seizure. Are confused. Have trouble walking. Have severe weakness. Have vision problems. These symptoms may represent a serious problem that is an emergency. Do not wait to see if your symptoms will go away. Get medical help right away. Call your local emergency services (911 in the [place] Do not drive yourself to the hospital. Summary Syncope refers to a condition in which a person temporarily loses consciousness. It is caused by a sudden decrease in blood flow to the brain. Signs that you may be about to faint include dizziness, feeling light-headed, feeling nauseous, sudden vision changes, or cold, clammy skin. Although most causes of syncope are not dangerous, syncope can be a sign of a serious medical problem. If you faint, get medical help right away. This information is not intended to replace advice given to you by your health care provider. Make sure you discuss any questions you have with your health care provider. Document Released: 06/13/2006 Document Revised: 05/26/2018 Document Reviewed: 05/22/2018 [employer] Patient Education 2020 [employer]. 04/13/2022 00:38:11 Nausea and Vomiting, Adult Nausea and Vomiting, Adult Nausea is the feeling that you have an upset stomach or that you are about to vomit. Vomiting is when stomach contents are thrown up and out of the mouth as a result of nausea. Vomiting can make you feel weak and cause you to become dehydrated. Dehydration can make you feel tired and thirsty, cause you to have a dry mouth, and decrease how often you urinate. Older adults and people with other diseases or a weak disease-fighting system (immune system) are at higher risk for dehydration. It is important to treat your nausea and vomiting as told by your health care provider. Follow these instructions at home: Watch your symptoms for any changes. Tell your health care provider about them. Follow these instructions to care for yourself at home. Eating and drinking Take an oral rehydration solution (ORS). This is a drink that is sold at pharmacies and retail stores. Drink clear fluids slowly and in small amounts as you are able. Clear fluids include water, ice chips, low-calorie sports drinks, and fruit juice that has water added (diluted fruit juice). Eat bland, efjh-sa-mahohs foods in small amounts as you are able. These foods include bananas, applesauce, rice, lean meats, toast, and crackers. Avoid fluids that contain a lot of sugar or caffeine, such as energy drinks, sports drinks, and soda. Avoid alcohol. Avoid spicy or fatty foods. General instructions Take tpzb-bai-mfddijx and prescription medicines only as told by your health care provider. Drink enough fluid to keep your urine pale yellow. Wash your hands often using soap and water. If soap and water are not available, use hand plant utilities engineer. Make sure that all people in your household wash their hands well and often. Rest at home while you recover. Watch your condition for any changes. Breathe slowly and deeply when you feel nauseated. Keep all follow-up visits as told by your health care provider. This is important. Contact a health care provider if: Your symptoms get worse. You have new symptoms. You have a fever. You cannot drink fluids without vomiting. Your nausea does not go away after 2 days. You feel light-headed or dizzy. You have a headache. You have muscle cramps. You have a rash. You have pain while urinating. Get help right away if: You have pain in your chest, neck, arm, or jaw. You feel extremely weak or you faint. You have persistent vomiting. You have vomit that is bright red or looks like black coffee grounds. You have bloody or black stools or stools that look like tar. You have a severe headache, a stiff neck, or both. You have severe pain, cramping, or bloating in your abdomen. You have difficulty breathing, or you are breathing very quickly. Your heart is beating very quickly. Your skin feels cold and clammy. You feel confused. You have signs of dehydration, such as: ?Dark urine, very little urine, or no urine. ?Cracked lips. ?Dry mouth. ?Sunken eyes. ?Sleepiness. ?Weakness. These symptoms may represent a serious problem that is an emergency. Do not wait to see if the symptoms will go away. Get medical help right away. Call your local emergency services (911 in the [place] Do not drive yourself to the hospital. Summary Nausea is the feeling that you have an upset stomach or that you are about to vomit. As nausea gets worse, it can lead to vomiting. Vomiting can make you feel weak and cause you to become dehydrated. Follow instructions from your health care provider about eating and drinking to prevent dehydration. Take sxco-bki-tdtahrq and prescription medicines only as told by your health care provider. Contact your health care provider if your symptoms get worse, or you have new symptoms. Keep all follow-up visits as told by your health care provider. This is important. This information is not intended to replace advice given to you by your health care provider. Make sure you discuss any questions you have with your health care provider. Document Released: 06/13/2006 Document Revised: 10/05/2019 Document Reviewed: 11/21/2018 [employer] Patient Education 2020 [employer]. Follow Up Care 04/12/2022 17:53:06 With:Paulino Elkins Address: [address] [place] [address] Business (1) When:04/15/2022 With:DAISY SOUSA Address: [address] [address] FAX [phone] [place] [address] Business (1) When:04/15/2022 Comments:Follow-up with your primary care provider in 3 to 5 days. If symptoms worsen, do not improve, or new symptoms arise please report back to emergency department for further evaluation. [facility] 04-12-2022 Evaluation + Plan note Extrac niya from: Title:ED Note Author:Jose Antonio ONTIVEROS, Clarence Garrison te:04/12/22 Syncope (R55: Syncope and co llapse) Vomiting (R11.10: Vomiting, unspecified) Orders: dicyclomine, 20 mg = 2 mL, Injection, IntraMuscular, Once, Stop date 04/12/22 20:12:00 EDT, STAT, Start date 04/12/22 20:12:00 EDT, 04/12/22 20:12:00 EDT dicyclomine, 10 mg = 1 cap(s), Oral, QID, X 7 day(s), # 28 cap(s), Refills(s) 0, Pharmacy: [id number] famotidine, 20 mg = 2 mL, Soln-IV, IV Push, Once, Stop date 04/12/22 20:12:00 EDT, STAT, Start date 04/12/22 20:12:00 EDT, 04/12/22 20:12:00 EDT promethazine, 25 mg = 1 tab(s), Tab, Oral, Once, Stop date 04/12/22 23:59:00 EDT, STAT, Start date 04/12/22 23:59:00 EDT, 04/12/22 23:59:00 EDT promethazine, 12.5 mg = 1 supp, Supp, Rectal, Once, Stop date 04/12/22 23:59:00 EDT, STAT, Start date 04/12/22 23:59:00 EDT, 04/12/22 23:59:00 EDT promethazine, 12.5 mg = 0.5 mL, Injection, IV Push, Once, Stop date 04/12/22 20:10:00 EDT, STAT, Start date 04/12/22 20:10:00 EDT, 04/12/22 20:10:00 EDT promethazine, 25 mg = 1 tab(s), Oral, q6hr, X 7 day(s), # 28 tab(s), Refills(s) 0, Pharmacy: [id number] Sodium Chloride 0.9% intravenous solution, 1,000 mL, Soln-IV, IV, Once, Stop date 04/12/22 20:10:00 EDT, STAT, Start date 04/12/22 20:10:00 EDT, mL/hr, Infuse over 61, minute(s) Beta hCG Qual Troponin 0 Hr. Troponin 3 Hr. XR Chest Single View [facility]05-30-2022 Progress note Author Anthony Crane [facility] November 23, 2021 11:04am Note Date/Time November 23, 2021 11:04 am [facility] [address] [place] [address] General Surgery Progress Note Signed Patient: Bina Campos MR#: [id number] : 1975 Acct:[id number] Age/Sex: 46 / F Adm Date: 2 Loc: 4N Room: [address] [place] [address] Type : ADM IN Attending Dr: Priti Bhandari MD Copies to: ~ Date of Service: 11/23/2021 Subjective Subjective Patient reports: no new complaints and feels better HPI: Patient states she is doing better today. The area is only tender if she touches it. She is very anxious to go home. Allergies & Medications Medications and Allergies Allergies ciprofloxacin [From Cipro] Allergy (Verified 11/21/21 02:46) Hives Home Medications albuterol 90 mcg/actuation aerosol inhaler 180 mcg INHALATION DAILY PRN 06/01/21[History Confirmed 11/21/21] escitalopram oxalate 10 mg tablet (Lexapro) 10 mg PO DAILY 06/01/21 [History Confirmed 11/21/21] metformin 1,000 mg tablet 1,000 mg PO BID 06/01/21 [History Confirmed 11/21/21] ondansetron 4 mg disintegrating tablet 4 mg PO Q6H PRN #24 tab 06/02/21 [Rx Confirmed 11/21/21] alcohol swabs 1 pad TOPICAL ACHS #100 ea 06/08/21 [Rx Confirmed 11/21/21] blood sugar diagnostic #100 ea 06/08/21 [Rx Confirmed 11/21/21] blood-glucose meter #1 ea 06/08/21 [Rx Confirmed 11/21/21] dextrose 40 % oral gel (Glutose-15) 0.6 g PO PRN PRN #37.5 g 06/08/21 [Rx Confirmed 11/21/21] lancets #100 ea 06/08/21 [Rx Confirmed 11/21/21] pen needle, diabetic 32 gauge x 5/32 (BD Ultra-Fine Symone Pen Needle) #100 ea 06/08/21 [Rx Confirmed 11/21/21] tramadol 50 mg tablet (Ultram) 50 mg PO Q6H PRN 7 Days #30 tab 11/22/21 [Rx] Active Medications Acetaminophen (Acetaminophen 325 Mg Tablet) 650 mg PO Q6HR PRN PRN Reason: Pain Scale 1 - 3 or fever Stop: 11/21/22 10:47 Albuterol (Albuterol Hfa 60 Puff/8 Gram Inhaler) 2 puff INHALATION DAILY PRN PRN Reason: Shortness Of Breath Stop: 11/21/22 10:52 Dextrose (Dextrose 50% In Water 25 Gm/50 Ml Syringe) 25 gm IV-PUSH PRN PRN PRN Reason: HYOPGLYCEMIA Stop: 11/22/22 07:35 Docusate Sodium (Docusate 100 Mg Capsule) 100 mg PO BID [facility] Stop: 11/21/22 20:59 Last Admin: 11/23/21 08:28 Dose: Not Given Documented by: Enoxaparin Sodium (Enoxaparin 40 Mg/0.4 Ml Syringe) 40 mg SUBCUT DAILY@1000 [facility] Stop: 11/22/22 09:59 Last Admin: 11/23/21 09:19 Dose: Not Given Documented by: Escitalopram Oxalate (Escitalopram 10 Mg Tablet) 10 mg PO DAILY [facility] Stop: 11/22/22 08:59 Last Admin: 11/23/21 08:28 Dose: 10 mg Documented by: Glucose (Dextrose 40% Gel 15 Gm Tube) 15 gm PO PRN PRN PRN Reason: Hypoglycemia Stop: 11/22/22 07:36 Hydromorphone HCl (Hydromorphone 1 Mg/Ml Syringe) 1 mg IV-PUSH Q3H PRN PRN Reason: Pain Meropenem (Merrem) 1 gm in 100 mls @ 200 mls/hr IV Q8H [facility] Last Admin: 11/23/21 06:50 Dose: 200 mls/hr Documented by: Vancomycin HCl 1.5 gm/ (Dextrose) 530 mls @ 353.333 mls/hr IV Q12H [facility] Stop: 11/23/22 09:29 Last Admin: 11/23/21 09:36 Dose: 353.3 mls/hr Documented by: Ibuprofen (Ibuprofen 600 Mg Tablet) 600 mg PO Q6H PRN PRN Reason: Pain Stop: 11/21/22 10:39 Insulin Aspart (Insulin Aspart 300 Units/3 Ml Insuln.Pen) 0 units SUBCUT TID.WM.HS [facility]; Protocol Stop: 11/21/22 11:59 Last Admin: 11/23/21 08:28 Dose: 3 units Documented by: Insulin Detemir (Insulin Detemir 300 Units/3 Ml Insuln.Pen) 15 units SUBCUT DAILY [facility] Stop: 11/22/22 08:59 Last Admin: 11/23/21 08:28 Dose: 15 units Documented by: Metformin HCl (Metformin 500 Mg Tablet) 1,000 mg PO BID.WITH.MEALS [facility] Stop: 11/23/22 16:59 Ondansetron HCl (Ondansetron 4 Mg/2 Ml Vial) 4 mg IV-PUSH Q6H PRN PRN Reason: Nausea And Vomiting Stop: 11/21/22 10:39 Sodium Chloride (Sodium Chloride 0.9 % 10 Ml Syringe) 10 ml IV-PUSH PRN PRN PRN Reason: Flush Stop: 11/21/22 10:54 Last Admin: 11/22/21 03:57 Dose: 10 ml Documented by: Tramadol HCl (Tramadol 50 Mg Tablet) 25 - 50 mg PO Q6H PRN PRN Reason: Pain Stop: 05/20/22 10:39 Vancomycin HCl (Vancomycin - Pharmacy Dosing 1 Each Miscell) 1 each IV PRN PRN; Protocol PRN Reason: ZZ.Pharmacy Consult Exam Physical Exam Vital Signs: Temp Pulse Resp BP Pulse Ox 97.7 F 79 14 133/69 99 11/23/21 08:00 11/23/21 08:00 11/23/21 08:00 11/23/21 08:00 11/23/21 08:00 Const General: cooperative GI Other: Anterior right gluteal wound is healing nicely, there is no necrosis there is no erythema or cellulitis. No drainage. Packing is in place. Objective Pain Assessment Right Groin: Pain Description: Constant and Aching Pain Intensity: 0 Intake & Output 24 hour I&O: Intake & Output 11/22/21 11/23/21 11/23/21 23:59 07:59 15:59 Intake Total 1555 / 2930 500 / 500 Balance 1555 / 2930 500 / 500 Weight 86.3 kg Labs CBC & Chem 7: 11/23/21 04:20 11/22/21 04:11 Laboratory Results - Last 48 hrs. 11/23/21 08:42: Vancomycin Trough 9.5 L 11/23/21 07:46: POC Glucose 230, POC Glucose Comment Glu2: cleaned meter 11/23/21 04:20: Corrected WBC 7.5, Uncorrected WBC Count 7.5, RBC 3.73, Hgb 10.7 L, Hct 31.1 L, MCV 83.3, MCH 28.7, MCHC 34.4, RDW 12.8, Plt Count 344, MPV 8.2, Neut % (Auto) 60.0, Lymph % (Auto) 25.6, [place] % (Auto) 10.7, Eos % (Auto) 3.0, Baso % (Auto) 0.7, Neut # (Auto) 4.5, Lymph # (Auto) 1.9, [place] # (Auto) 0.8, Eos # (Auto) 0.2, Baso # (Auto) 0.1, Nucleated RBC % (auto) 0.0 11/23/21 00:07: Vancomycin Peak 22.6 11/22/21 21:02: POC Glucose 313 11/22/21 16:43: POC Glucose 285, POC Glucose Comment Glu2: cleaned meter 11/22/21 12:15: POC Glucose 316, POC Glucose Comment Glu2: cleaned meter 11/22/21 08:15: POC Glucose 221 11/22/21 04:11: PHA Creatinine Clear 125.67, Sodium 133 L, Potassium 3.9, Chloride 103, Carbon Dioxide 21.1 L, BUN 13, Creatinine 0.61, Est GFR ( Amer) > 60, Est GFR (Non-Af Amer) > 60 11/22/21 04:11: Corrected WBC 16.7 H, Uncorrected WBC Count 16.7 H, RBC 4.18, Hgb 11.6 L, Hct 34.8, MCV 83.2, MCH 27.8, MCHC 33.4, RDW 12.9, Plt Count 342, MPV 8.6, Neut % (Auto) 84.0, Lymph % (Auto) 8.1, [place] % (Auto) 6.6, Eos % (Auto) 0.8, Baso % (Auto) 0.5, Neut # (Auto) 14.0 H, Lymph # (Auto) 1.3, [place] # (Auto) 1.1 H, Eos # (Auto) 0.1, Baso # (Auto) 0.1, Nucleated RBC % (auto) 0.0 11/22/21 02:06: POC Glucose 221, POC Glucose Comment Glu2: cleaned meter 11/21/21 22:57: POC Glucose 481 H*, POC Glucose Comment 11/21/21 21:17: POC Glucose 521 H*, POC Glucose Comment Glu2: cleaned meter 11/21/21 17:24: POC Glucose 381 11/21/21 12:10: POC Glucose 292 11/21/21 03:15: Estimat Average Glucose 344, Hemoglobin A1c 13.6 H Microbiology Microbiology 11/21/21 03:55 Clean Void Midstream Urine Culture - Final 75,000 colonies/ml mixed bacterial skin contaminants 2 Days 11/21/21 03:33 Blood - Left Hand Blood Culture - Preliminary No Growth 2 Days 11/21/21 03:15 Blood - Right Hand Blood Culture - Preliminary No Growth 2 Days 11/21/21 09:28 Perineum - Tissue Aerobic Culture - Preliminary Strep. agalactiae Grp B 11/21/21 09:28 Perineum - Tissue Anaerobic Culture - Preliminary No Anaerobes Isolated 1 Day 11/21/21 09:28 Perineum - Tissue Gram Stain - Final 11/21/21 09:27 Other (See Comment) Aerobic Culture - Preliminary 11/21/21 09:27 Other (See Comment) Anaerobic Culture - Preliminary 11/21/21 09:27 Other (See Comment) Gram Stain - Final A&P - General Surgery Assessment/Plan (1) Hyperglycemia: Code(s): R73.9 - Hyperglycemia, unspecified Status: Acute (2) Necrotizing fasciitis: Plan: Right gluteal wound is clean. No evidence of necrosis at this time. Patient can be discharged home with follow-up visit to see Dr. Mark and continue daily wound packing. Patient states she can do the wound packing herself. Code(s): M72.6 - Necrotizing fasciitis Status: Acute (3) Perineal abscess: Code(s): L02.215 - Cutaneous abscess of perineum Status: Acute Documented By: Anthony Crane DO 11/23/21 11 00 Signed By: <Electronically signed by Anthony Crane DO> 11/23/21 110[address] [facility] Work Phone: [phone]) 736-460805-29-2022 Progress note Author Luis Alvarez [facility] November 22, 2021 11:34am Note Date/Time November 22, 2021 11:34 am [facility] [address] [place] [address] Hospitalist Progress Note Signed Patient: Bina Campos MR#: [id number] : 1975 Acct:[id number] Age/Sex: 46 / F Adm Date: 2 Loc: 4 Room: [address] [place] [address] Type : ADM IN Attending Dr: Luis Alvarez MD Copies to: ~ Date of Service: 11/22/2021 Subjective Subjective Narrative: Patient seen and examined. Per RN patient had elevated sugar levels last night despite using sliding scale insulin. Patient does not use insulin at home. Patient is very anxious to be discharged home and was pacing in the room while Iwas in the room with her. States that she does not have pain and feels good andwant to be discharged home. I explained her the importance of staying in the hospital as the cultures have not come back yet with leukocytosis and pretty badperineal/gluteal abscess which was starting to turn into a necrotizing soft tissue infection in the setting of uncontrolled diabetes. Exam Physical Exam Vital Signs: Temp Pulse Resp BP Pulse Ox 98.2 F 90 16 144/77 H 93 L 11/22/21 11:14 11/22/21 11:14 11/22/21 04:00 11/22/21 11:14 11/22/21 11:14 Narrative: General: Awake, alert, oriented x3 not in acute distress HEENT: Normocephalic, atraumatic, PERRLA, normal mucosa Cardiovascular: Regular rate and rhythm , S1-S2 heard, no murmurs or gallops Lungs: No wheezing or rhonchi heard Gastrointestinal: Soft, nontender, bowel sounds heard Extremities: No edema Neurological: no sensory or motor deficit Skin: Dry and warm, no rashes or lesions Psych: Anxious Objective Lab Results CBC & Chem 7: 11/22/21 04:11 11/22/21 04:11 Microbiology Results Microbiology 11/21/21 09:28 Perineum - Tissue Aerobic Culture - Preliminary Strep. agalactiae Grp B 11/21/21 09:28 Perineum - Tissue Anaerobic Culture - Preliminary No Anaerobes Isolated 1 Day 11/21/21 09:28 Perineum - Tissue Gram Stain - Final 11/21/21 09:27 Other (See Comment) Aerobic Culture - Preliminary 11/21/21 09:27 Other (See Comment) Anaerobic Culture - Preliminary 11/21/21 09:27 Other (See Comment) Gram Stain - Final 11/21/21 03:33 Blood - Left Hand Blood Culture - Preliminary No Growth 1 Day 11/21/21 03:15 Blood - Right Hand Blood Culture - Preliminary No Growth 1 Day 11/21/21 07:13 Nasopharyngeal SARS-CoV-2, Influenza & RSV (PCR) - Final Meds Allergies and Active Meds Allergies ciprofloxacin [From Cipro] Allergy (Verified 11/21/21 02:46) Hives Active Meds: Active Medications Generic Name Dose Route Start Last Admin Trade Name Freq PRN Reason Stop Dose Admin Acetaminophen 650 mg 11/21/21 10:48 Acetaminophen 325 Mg Tablet PO 11/21/22 10:47 Q6HR PRN Pain Scale 1 - 3 or fever Albuterol 2 puff 11/21/21 10:53 Albuterol Hfa 60 Puff/8 Gram Inhaler INHALATION 11/21/22 10:52 DAILY PRN Shortness Of Breath Dextrose 25 gm 11/22/21 07:36 Dextrose 50% In Water 25 Gm/50 Ml Syringe IV-PUSH 11/22/22 07:35 PRN PRN HYOPGLYCEMIA Docusate Sodium 100 mg 11/21/21 21:00 11/22/21 08:16 Docusate 100 Mg Capsule PO 11/21/22 20:59 100 mg BID DELVIS Administration Enoxaparin Sodium 40 mg 11/22/21 10:00 Enoxaparin 40 Mg/0.4 Ml Syringe SUBCUT 11/22/22 09:59 DAILY@1000 DELVIS Escitalopram Oxalate 10 mg 11/22/21 09:00 11/22/21 08:16 Escitalopram 10 Mg Tablet PO 11/22/22 08:59 10 mg DAILY DELVIS Administration Glucose 15 gm 11/22/21 07:37 Dextrose 40% Gel 15 Gm Tube PO 11/22/22 07:36 PRN PRN Hypoglycemia Hydromorphone HCl 1 mg 11/21/21 10:40 Hydromorphone 1 Mg/Ml Syringe IV-PUSH Q3H PRN Pain Meropenem 1 gm in 100 mls @ 200 mls/hr 11/21/21 10:40 11/22/21 04:37 Merrem IV Infused Q8H DELVIS Infusion Vancomycin HCl 1.25 gm/ 275 mls @ 183.333 mls/hr 11/21/21 18:00 11/22/21 05:55 Dextrose IV 11/21/22 17:59 183.3 mls/hr Q12H DELVIS Administration Ibuprofen 600 mg 11/21/21 10:40 Ibuprofen 600 Mg Tablet PO 11/21/22 10:39 Q6H PRN Pain Insulin Aspart 0 units 11/21/21 12:00 11/22/21 08:16 Insulin Aspart 300 Units/3 Ml Insuln.Pen SUBCUT 11/21/22 11:59 3 units TID.WM.HS DELVIS Administration Protocol Insulin Detemir 15 units 11/22/21 09:00 11/22/21 08:17 Insulin Detemir 300 Units/3 Ml Insuln.Pen SUBCUT 11/22/22 08:59 15 units DAILY DELVIS Administration Metformin HCl 1,000 mg 11/23/21 17:00 Metformin 500 Mg Tablet PO 11/23/22 16:59 BID.WITH.MEALS DELVIS Ondansetron HCl 4 mg 11/21/21 10:40 Ondansetron 4 Mg/2 Ml Vial IV-PUSH 11/21/22 10:39 Q6H PRN Nausea And Vomiting Sodium Chloride 10 ml 11/21/21 10:55 11/22/21 03:57 Sodium Chloride 0.9 % 10 Ml Syringe IV-PUSH 11/21/22 10:54 10 ml PRN PRN Administration Flush Tramadol HCl 25 - 50 mg 11/21/21 10:40 Tramadol 50 Mg Tablet PO 05/20/22 10:39 Q6H PRN Pain Vancomycin HCl 1 each 11/21/21 10:42 Vancomycin - Pharmacy Dosing 1 Each Miscell IV PRN PRN ZZ.Pharmacy Consult Protocol A&P - Hospitalist Assessment/Plan (1) Perineal abscess: (2) Necrotizing fasciitis: (3) Perirectal cellulitis: (4) Nausea and vomiting: (5) Diabetes mellitus type 2 in nonobese: (6) Hyperglycemia: (7) Hypertension: Plan S/p incision and drainage of the perineal/rectal abscess postoperative day 1 Patient is hemodynamically stable, has remained afebrile since yesterday Leukocytosis noted, BUN/creatinine within normal limits Blood culture showed no growth so far, intraoperative cultures preliminary positive for strep agalactiae Continue IV antibiotics, will de-escalate based on cultures Manage pain, bowel regimen Insulin sliding scale, Accu-Chek. A1c 13.1. Will start long-acting insulin detemir 15 units daily. ADA diet DVT prophylaxis with SCDs CODE STATUS full code Documented By: Luis Alvarez MD 11/22/21 1128 Signed By: <Electronically signed by Luis Alvarez MD> 11/22/21 113[address] [facility] Work Phone: [phone]) 306-497105-29-2022 Progress note Author Juan Mark [facility] November 22, 2021 10:08am Note Date/Time November 22, 2021 10:08 am [facility] [address] [place] [address] General Surgery Progress Note Signed Patient: Bina Campos MR#: [id number] : 1975 Acct:[id number] Age/Sex: 46 / F Adm Date: 2 Loc: N Room: [address] [place] [address] Type : ADM IN Attending Dr: Luis Alvarez MD Copies to: ~ Date of Service: 11/22/2021 Subjective Subjective HPI: Patient was informed by the hospitalist that she needs to stay another day. Sheis tearful because of that. She does not get good sleep. And she really wants to be at home. She has a long weekend off and that does not happen very often. Additionally she had the opportunity to see her grandson this weekend. She still does have some soreness at the area. She is not having any purulent drainage. She is not having any fevers chills or sweats. Allergies & Medications Medications and Allergies Allergies ciprofloxacin [From Cipro] Allergy (Verified 11/21/21 02:46) Hives Home Medications albuterol 90 mcg/actuation aerosol inhaler 180 mcg INHALATION DAILY PRN 06/01/21[History Confirmed 11/21/21] escitalopram oxalate 10 mg tablet (Lexapro) 10 mg PO DAILY 06/01/21 [History Confirmed 11/21/21] metformin 1,000 mg tablet 1,000 mg PO BID 06/01/21 [History Confirmed 11/21/21] ondansetron 4 mg disintegrating tablet 4 mg PO Q6H PRN #24 tab 06/02/21 [Rx Confirmed 11/21/21] alcohol swabs 1 pad TOPICAL ACHS #100 ea 06/08/21 [Rx Confirmed 11/21/21] blood sugar diagnostic #100 ea 06/08/21 [Rx Confirmed 11/21/21] blood-glucose meter #1 ea 06/08/21 [Rx Confirmed 11/21/21] dextrose 40 % oral gel (Glutose-15) 0.6 g PO PRN PRN #37.5 g 06/08/21 [Rx Confirmed 11/21/21] lancets #100 ea 06/08/21 [Rx Confirmed 11/21/21] pen needle, diabetic 32 gauge x 5/32 (BD Ultra-Fine Symone Pen Needle) #100 ea 06/08/21 [Rx Confirmed 11/21/21] Active Medications Acetaminophen (Acetaminophen 325 Mg Tablet) 650 mg PO Q6HR PRN PRN Reason: Pain Scale 1 - 3 or fever Stop: 11/21/22 10:47 Albuterol (Albuterol Hfa 60 Puff/8 Gram Inhaler) 2 puff INHALATION DAILY PRN PRN Reason: Shortness Of Breath Stop: 11/21/22 10:52 Dextrose (Dextrose 50% In Water 25 Gm/50 Ml Syringe) 25 gm IV-PUSH PRN PRN PRN Reason: HYOPGLYCEMIA Stop: 11/22/22 07:35 Docusate Sodium (Docusate 100 Mg Capsule) 100 mg PO BID [facility] Stop: 11/21/22 20:59 Last Admin: 11/22/21 08:16 Dose: 100 mg Documented by: Enoxaparin Sodium (Enoxaparin 40 Mg/0.4 Ml Syringe) 40 mg SUBCUT DAILY@1000 [facility] Stop: 11/22/22 09:59 Escitalopram Oxalate (Escitalopram 10 Mg Tablet) 10 mg PO DAILY [facility] Stop: 11/22/22 08:59 Last Admin: 11/22/21 08:16 Dose: 10 mg Documented by: Glucose (Dextrose 40% Gel 15 Gm Tube) 15 gm PO PRN PRN PRN Reason: Hypoglycemia Stop: 11/22/22 07:36 Hydromorphone HCl (Hydromorphone 1 Mg/Ml Syringe) 1 mg IV-PUSH Q3H PRN PRN Reason: Pain Potassium Chloride/Sodium Chloride (0.9 % Nacl-20 Meq Kcl) 1,000 mls @ 125 mls/hr IV .Q8H [facility] Stop: 11/21/22 10:39 Last Admin: 11/22/21 03:50 Dose: Not Given Documented by: Meropenem (Merrem) 1 gm in 100 mls @ 200 mls/hr IV Q8H [facility] Last Infusion: 11/22/21 04:37 Dose: Infused Documented by: Vancomycin HCl 1.25 gm/ (Dextrose) 275 mls @ 183.333 mls/hr IV Q12H [facility] Stop: 11/21/22 17:59 Last Admin: 11/22/21 05:55 Dose: 183.3 mls/hr Documented by: Ibuprofen (Ibuprofen 600 Mg Tablet) 600 mg PO Q6H PRN PRN Reason: Pain Stop: 11/21/22 10:39 Insulin Aspart (Insulin Aspart 300 Units/3 Ml Insuln.Pen) 0 units SUBCUT TID.WM.HS [facility]; Protocol Stop: 11/21/22 11:59 Last Admin: 11/22/21 08:16 Dose: 3 units Documented by: Insulin Detemir (Insulin Detemir 300 Units/3 Ml Insuln.Pen) 15 units SUBCUT DAILY [facility] Stop: 11/22/22 08:59 Last Admin: 11/22/21 08:17 Dose: 15 units Documented by: Metformin HCl (Metformin 500 Mg Tablet) 1,000 mg PO BID.WITH.MEALS [facility] Stop: 11/23/22 16:59 Ondansetron HCl (Ondansetron 4 Mg/2 Ml Vial) 4 mg IV-PUSH Q6H PRN PRN Reason: Nausea And Vomiting Stop: 11/21/22 10:39 Sodium Chloride (Sodium Chloride 0.9 % 10 Ml Syringe) 10 ml IV-PUSH PRN PRN PRN Reason: Flush Stop: 11/21/22 10:54 Last Admin: 11/22/21 03:57 Dose: 10 ml Documented by: Tramadol HCl (Tramadol 50 Mg Tablet) 25 - 50 mg PO Q6H PRN PRN Reason: Pain Stop: 05/20/22 10:39 Vancomycin HCl (Vancomycin - Pharmacy Dosing 1 Each Miscell) 1 each IV PRN PRN; Protocol PRN Reason: ZZ.Pharmacy Consult Exam Physical Exam Vital Signs: Temp Pulse Resp BP Pulse Ox 98.2 F 79 16 125/64 98 11/22/21 07:48 11/22/21 07:48 11/22/21 04:00 11/22/21 07:48 11/22/21 07:48 Narrative: Patient is nontoxic. Heart is regular rate rhythm. Abscess cavity is not showing any new necrotic tissue or purulence. There is some induration and cellulitis which is less but still present around the wound. Objective Pain Assessment Right Groin: Pain Description: Constant and Aching Pain Intensity: 0 Intake & Output 24 hour I&O: Intake & Output 11/21/21 11/22/21 11/22/21 23:59 07:59 15:59 Intake Total 1865 / 5515 300 / 300 Output Total 250 / 450 Balance 1615 / 5065 300 / 300 Weight 87.2 kg Labs CBC & Chem 7: 11/22/21 04:11 11/22/21 04:11 Laboratory Results - Last 48 hrs. 11/22/21 08:15: POC Glucose 221 11/22/21 04:11: PHA Creatinine Clear 125.67, Sodium 133 L, Potassium 3.9, Chloride 103, Carbon Dioxide 21.1 L, BUN 13, Creatinine 0.61, Est GFR ( Amer) > 60, Est GFR (Non-Af Amer) > 60 11/22/21 04:11: Corrected WBC 16.7 H, Uncorrected WBC Count 16.7 H, RBC 4.18, Hgb 11.6 L, Hct 34.8, MCV 83.2, MCH 27.8, MCHC 33.4, RDW 12.9, Plt Count 342, MPV 8.6, Neut % (Auto) 84.0, Lymph % (Auto) 8.1, [place] % (Auto) 6.6, Eos % (Auto)0.8, Baso % (Auto) 0.5, Neut # (Auto) 14.0 H, Lymph # (Auto) 1.3, [place] # (Auto) 1.1 H, Eos # (Auto) 0.1, Baso # (Auto) 0.1, Nucleated RBC % (auto) 0.0 11/22/21 02:06: POC Glucose 221, POC Glucose Comment Glu2: cleaned meter 11/21/21 22:57: POC Glucose 481 H*, POC Glucose Comment 11/21/21 21:17: POC Glucose 521 H*, POC Glucose Comment Glu2: cleaned meter 11/21/21 17:24: POC Glucose 381 11/21/21 12:10: POC Glucose 292 11/21/21 07:13: SARS-CoV-2 Rap RNA(RT-PCR) Negative 11/21/21 07:13: COVID-19 PCR Interp N/A 11/21/21 07:11: POC Glucose 333 11/21/21 05:11: POC Glucose 350, POC Glucose Comment Glu2: cleaned meter 11/21/21 03:55: Urine Color Yellow, Urine Appearance Clear, Urine pH 5.5, Ur Specific [place] 1.032 H, Urine Protein Negative, Urine Glucose (UA) >=1000 H, Urine Ketones 2+ H, Urine Occult Blood Negative, Urine Nitrite Negative, Urine Bilirubin Negative, Urine Urobilinogen Normal, Ur Leukocyte Esterase Negative, Urine HCG, Qual Negative 11/21/21 03:33: Lactic Acid 1.4 11/21/21 03:31: PT 11.0, INR 1.0, APTT 23.2 L 11/21/21 03:15: Estimat Average Glucose 344, Hemoglobin A1c 13.6 H 11/21/21 03:15: PHA Creatinine Clear 93.05, Sodium 129 L, Potassium 4.2, Chloride 93 L, Carbon Dioxide 22.9, BUN 13, Creatinine 0.81, Est GFR ( Amer) > 60, Est GFR (Non-Af Amer) > 60, Glucose 481 H, Calcium 9.2, Total Bilirubin 0.7, AST 14, ALT 13, Alkaline Phosphatase 83, Total Protein 6.1, Albumin 2.9 L, Globulin 3.2, Albumin/Globulin Ratio 0.9 11/21/21 03:15: Corrected WBC 16.8 H, Uncorrected WBC Count 16.8 H, RBC 4.46, Hgb 12.4, Hct 37.7, MCV 84.7, MCH 27.9, MCHC 32.9, RDW 13.0, Plt Count 291, MPV 8.7, Neut % (Auto) 83.9, Lymph % (Auto) 7.3, [place] % (Auto) 7.1, Eos % (Auto) 0.9, Baso % (Auto) 0.8, Neut # (Auto) 14.2 H, Lymph # (Auto) 1.2, [place] # (Auto) 1.2 H, Eos # (Auto) 0.1, Baso # (Auto) 0.1, Nucleated RBC % (auto) 0.0 Microbiology Microbiology 11/21/21 09:27 Other (See Comment) Gram Stain - Final 11/21/21 09:28 Perineum - Tissue Gram Stain - Final 11/21/21 03:33 Blood - Left Hand Blood Culture - Preliminary No Growth 1 Day 11/21/21 03:15 Blood - Right Hand Blood Culture - Preliminary No Growth 1 Day 11/21/21 07:13 Nasopharyngeal SARS-CoV-2, Influenza & RSV (PCR) - Final A&P - General Surgery Assessment/Plan (1) Perineal abscess: Plan: Patient had incision and drainage of perineal/gluteal abscess which was startingto turn into a necrotizing soft tissue infection. This is a significant infection that could have greatly worsened. Unfortunately do not have cultures back yet nor is there enough improvement to recommend her discharge home. I hadan extensive discussion with her about this and we instituted things such as changing room to avoid a noisy neighbor to help improve her comfort here. I discussed with her and her . Additionally patient needs better outpatient glucose control. Code(s): L02.215 - Cutaneous abscess of perineum Status: Acute (2) Necrotizing fasciitis: Code(s): M72.6 - Necrotizing fasciitis Status: Acute Documented By: Juan Mark DO 11/22/21 1006 Signed By: <Electronically signed by DO Juan Mark> 11/22/21 1008 [facility] Work Phone: 1(129) 636-972705-28-2022 History and physical note Author [facility] November 21, 2021 2:17pm Note Date/Time November 21, 2021 10:55 am [facility] [address] [place] [address] Hospitalist H&P Signed Patient: Bina Campos MR#: [id number] : 1975 Acct:[id number] Age/Sex: 46 / F Adm Date: 2 Loc: 4N Room: 2X3738-8 Type : REG [facility] Attending Dr: Luis Alvarez MD Copies to: Luis Alvarez MD NO FAMILY PHYSICIAN~ HPI DATE OF EXAMINATION: 11/21/21 CHIEF COMPLAINT: perineal pain, n/v HISTORY OF PRESENT ILLNESS: Patient is a 46-year-old lady past medical history of diabetes, gastroparesis, history of total hysterectomy presented to the emergency department complaining of perineal pain. Patient states that she had nausea and vomiting 4 days ago which he attributed to gastroparesis and antibiotics which she was taking for UTI, it resolved spontaneously. Around the same time she noticed a bump/blisterin the right perineal area. It eventually got bigger. She manipulated it usinga safety pain several times to pop it. It got much bigger and painful. She could not eat or drink anything for the past 2 days and felt very sick and eventually presented to the ED. CT abdomen/pelvis done in the ED showed inflammatory changes in the perineum on the right primarily within the subcutaneous tissue extending to the upper inner right thigh skin thickening identified, subcutaneous air is present without discrete fluid collection, reactive inguinal lymph nodes on the right. ED physician spoke to general surgery while in the ED. Patient was directly taken for surgery from the ED. Have seen and examined the patient after the surgery. She appears much more comfortable after the surgery. She currently denies any nausea, vomiting, abdominal pain, shortness of breath, cough, chest pain, palpitations. She does not smoke or drink alcohol Review of Systems Review of Systems All other systems reviewed & are negative unless noted below or in HPI PMFSH Vaccinated for COVID-19?: No Medical History Bladder mass delivery delivered X2 No pertinent past medical history Surgical History H/O total hysterectomy History of tonsillectomy and adenoidectomy Family History (Updated 06/01/21 @ 21:41 by Eliseo Sullivan MD) Other Hypertension Social History Smoking Status: Former smoker Substance Use Type: None Meds Medications and Allergies Allergies ciprofloxacin [From Cipro] Allergy (Verified 11/21/21 02:46) Hives Home Medications albuterol 90 mcg/actuation aerosol inhaler 180 mcg INHALATION DAILY PRN 06/01/21[History Confirmed 11/21/21] escitalopram oxalate 10 mg tablet (Lexapro) 10 mg PO DAILY 06/01/21 [History Confirmed 11/21/21] metformin 1,000 mg tablet 1,000 mg PO BID 06/01/21 [History Confirmed 11/21/21] ondansetron 4 mg disintegrating tablet 4 mg PO Q6H PRN #24 tab 06/02/21 [Rx Confirmed 11/21/21] alcohol swabs 1 pad TOPICAL ACHS #100 ea 06/08/21 [Rx Confirmed 11/21/21] blood sugar diagnostic #100 ea 06/08/21 [Rx Confirmed 11/21/21] blood-glucose meter #1 ea 06/08/21 [Rx Confirmed 11/21/21] dextrose 40 % oral gel (Glutose-15) 0.6 g PO PRN PRN #37.5 g 06/08/21 [Rx Confirmed 11/21/21] lancets #100 ea 06/08/21 [Rx Confirmed 11/21/21] pen needle, diabetic 32 gauge x 5/32 (BD Ultra-Fine Symone Pen Needle) #100 ea 06/08/21 [Rx Confirmed 11/21/21] Exam Physical Exam Vital Signs: Temp Pulse Resp BP Pulse Ox 97.5 F L 83 14 115/62 96 11/21/21 09:45 11/21/21 10:10 11/21/21 10:10 11/21/21 10:10 11/21/21 10:10 Narrative: General: Awake, alert, oriented x3 not in acute distress HEENT: Normocephalic, atraumatic, PERRLA, normal mucosa Cardiovascular: Regular rate and rhythm , S1-S2 heard, no murmurs or gallops Lungs: No wheezing or rhonchi heard Gastrointestinal: Soft, nontender, bowel sounds heard Extremities: No edema Neurological: no sensory or motor deficit Skin: Dry and warm, no rashes or lesions Psych: Normal mood and affect Results Lab Results Labs: Laboratory Last Values Corrected WBC 16.8 X10E3/uL (3.8-11.6) H 11/21/21 03:15 Uncorrected WBC Count 16.8 x10E3/uL (4.5-11.0) H 11/21/21 03:15 RBC 4.46 x10E6/uL (3.60-5.00) 11/21/21 03:15 Hgb 12.4 g/dL (11.8-15.4) 11/21/21 03:15 Hct 37.7 % (34.0-46.4) 11/21/21 03:15 MCV 84.7 fl (80-100) 11/21/21 03:15 MCH 27.9 pg (24.7-34.3) 11/21/21 03:15 MCHC 32.9 g/dL (32.0-35.0) 11/21/21 03:15 RDW 13.0 % (11.9-15.3) 11/21/21 03:15 Plt Count 291 x10E3/uL (150-450) 11/21/21 03:15 MPV 8.7 fl (6.3-10.7) 11/21/21 03:15 Neut % (Auto) 83.9 % (.) 11/21/21 03:15 Lymph % (Auto) 7.3 % (.) 11/21/21 03:15 [place] % (Auto) 7.1 % (.) 11/21/21 03:15 Eos % (Auto) 0.9 % (.) 11/21/21 03:15 Baso % (Auto) 0.8 % (.) 11/21/21 03:15 Neut # (Auto) 14.2 x10E3/uL (1.8-7.7) H 11/21/21 03:15 Lymph # (Auto) 1.2 x10E3/uL (1.00-4.8) 11/21/21 03:15 [place] # (Auto) 1.2 x10E3/uL (0.0-0.8) H 11/21/21 03:15 Eos # (Auto) 0.1 x10E3/uL (0.0-0.45) 11/21/21 03:15 Baso # (Auto) 0.1 x10E3/uL (0.0-0.2) 11/21/21 03:15 Nucleated RBC % (auto) 0.0 % (0-0.5) 11/21/21 03:15 PT 11.0 Seconds (9.0-12.9) 11/21/21 03:31 INR 1.0 11/21/21 03:31 APTT 23.2 Seconds (25.1-36.5) L 11/21/21 03:31 PHA Creatinine Clear 93.05 11/21/21 03:15 Sodium 129 mmol/L (136-146) L 11/21/21 03:15 Potassium 4.2 mmol/L (3.5-5.1) 11/21/21 03:15 Chloride 93 mmol/L (95-114) L 11/21/21 03:15 Carbon Dioxide 22.9 mmol/L (22.0-30.0) 11/21/21 03:15 BUN 13 mg/dL (9-23) 11/21/21 03:15 Creatinine 0.81 mg/dL (0.44-1.03) 11/21/21 03:15 Est GFR ( Amer) > 60 mL/Min 11/21/21 03:15 Est GFR (Non-Af Amer) > 60 mL/Min 11/21/21 03:15 Glucose 481 mg/dL (70-100) H 11/21/21 03:15 POC Glucose 333 mg/dl 11/21/21 07:11 POC Glucose Comment Glu2: cleaned meter 11/21/21 05:11 Lactic Acid 1.4 mmol/L (0.5-2.2) 11/21/21 03:33 Calcium 9.2 mg/dL (8.2-10.2) 11/21/21 03:15 Total Bilirubin 0.7 mg/dL (0.3-1.2) 11/21/21 03:15 AST 14 U/L (10-42) 11/21/21 03:15 ALT 13 U/L (10-60) 11/21/21 03:15 Alkaline Phosphatase 83 U/L (32-92) 11/21/21 03:15 Total Protein 6.1 gm/dL (6.1-7.9) 11/21/21 03:15 Albumin 2.9 gm/dL (3.2-5.5) L 11/21/21 03:15 Globulin 3.2 gm/dL 11/21/21 03:15 Albumin/Globulin Ratio 0.9 11/21/21 03:15 Urine Color Yellow (Yellow) 11/21/21 03:55 Urine Appearance Clear (Clear) 11/21/21 03:55 Urine pH 5.5 (5.0-9.0) 11/21/21 03:55 Ur Specific [place] 1.032 (1.001-1.030) H 11/21/21 03:55 Urine Protein Negative mg/dL (Negative) 11/21/21 03:55 Urine Glucose (UA) >=1000 mg/dL (Normal) H 11/21/21 03:55 Urine Ketones 2+ (Negative) H 11/21/21 03:55 Urine Occult Blood Negative (Negative) 11/21/21 03:55 Urine Nitrite Negative (Negative) 11/21/21 03:55 Urine Bilirubin Negative (Negative) 11/21/21 03:55 Urine Urobilinogen Normal mg/dL (Normal) 11/21/21 03:55 Ur Leukocyte Esterase Negative (Negative) 11/21/21 03:55 Urine HCG, Qual Negative 11/21/21 03:55 COVID-19 PCR Interp N/A 11/21/21 07:13 SARS-CoV-2 Rap RNA(RT-PCR) Negative (Negative) 11/21/21 07:13 Microbiology Results Micro: Microbiology - Results from entire visit 11/21/21 07:13 Nasopharyngeal SARS-CoV-2, Influenza & RSV (PCR) - Final ABG Interpretation ABG results: 11/21/21 03:15 Glucose 481 H A&P - Hospitalist Assessment/Plan (1) Perineal abscess: (2) Necrotizing fasciitis: (3) Perirectal cellulitis: (4) Nausea and vomiting: (5) Diabetes mellitus type 2 in nonobese: (6) Hyperglycemia: (7) Hypertension: Plan Patient underwent incision and drainage of the perianal abscess She tolerated the procedure well with no immediate postprocedure complications Labs showed leukocytosis with normal BUNs/creatinine. Glucose 498. Patient received regular insulin in the ED, glucose down to 300s Blood culture sent prior to starting antibiotics. Intraoperative cultures sent as well Patient has been started on broad-spectrum antibiotics Manage pain, bowel regimen Insulin sliding scale, Accu-Chek DVT prophylaxis with SCDs CODE STATUS full code Documented By: Luis Alvarez MD 11/21/21 1054 Signed By: <Electronically signed by Luis Alvarez MD> 11/21/21 1417 [facility] Work Phone: [phone] Consult note Author Juan Mark [facility] November 21, 2021 7:57am Note Date/Time November 21, 2021 7:57a m [facility] [address] [place] [address] General Surgery Consult Note Signed Patient: Bina Campos MR#: [id number] : 1975 Acct:[id number] Age/Sex: 46 / F Adm Date: 2 Loc: ER Room: Type: [facility] Attending Dr: Copies to: NO FAMILY PHYSICIAN DO Billy Cho DO~ History of Present Illness Date of consult: 11/21/2021 History of present illness: Patient has significant diabetes. She did notice that over the last week her sugars were getting worse. She thought she had a urinary tract infection and she was on Bactrim to treat that. Several days ago on her right perineum/perirectal/buttock she developed some pain and a little bit of infection. It started to get bigger and she thought she would see if she could pop it and she poked it with a pin several times. It got much much bigger and more painful. She started to feel sick. She vomited several times. She came to the emergency room and she had a fever of 101. She is never had significant soft tissue infections like this before. She does not have any shortness of breath or chest pain. Review of Systems Review of Systems All other systems reviewed & are negative unless noted below or in HPI PMFSH Vaccinated for COVID-19?: No Medical History Bladder mass delivery delivered X2 No pertinent past medical history Surgical History H/O total hysterectomy History of tonsillectomy and adenoidectomy Family History (Updated 06/01/21 @ 21:41 by Eliseo Sullivan MD) Other Hypertension Social History Smoking Status: Never smoker Substance Use Type: None Allergies & Medications Medications and Allergies Allergies ciprofloxacin [From Cipro] Allergy (Verified 11/21/21 02:46) Hives Home Medications albuterol 90 mcg/actuation aerosol inhaler 180 mcg INHALATION DAILY PRN 06/01/21[History Confirmed 11/21/21] escitalopram oxalate 10 mg tablet (Lexapro) 10 mg PO DAILY 06/01/21 [History Confirmed 11/21/21] metformin 1,000 mg tablet 1,000 mg PO BID 06/01/21 [History Confirmed 11/21/21] ondansetron 4 mg disintegrating tablet 4 mg PO Q6H PRN #24 tab 06/02/21 [Rx Confirmed 11/21/21] alcohol swabs 1 pad TOPICAL ACHS #100 ea 06/08/21 [Rx Confirmed 11/21/21] blood sugar diagnostic #100 ea 06/08/21 [Rx Confirmed 11/21/21] blood-glucose meter #1 ea 06/08/21 [Rx Confirmed 11/21/21] dextrose 40 % oral gel (Glutose-15) 0.6 g PO PRN PRN #37.5 g 06/08/21 [Rx Confirmed 11/21/21] lancets #100 ea 06/08/21 [Rx Confirmed 11/21/21] pen needle, diabetic 32 gauge x 5/32 (BD Ultra-Fine Symone Pen Needle) #100 ea 06/08/21 [Rx Confirmed 11/21/21] Exam Physical Exam Vital Signs: Temp Pulse Resp BP Pulse Ox 99.2 F H 90 20 147/76 H 95 11/21/21 07:06 11/21/21 07:40 11/21/21 06:30 11/21/21 06:30 11/21/21 06:30 Narrative: Patient is conversive pleasant not toxic in appearance. Head is atraumatic normocephalic. Eyes are without scleral icterus. Neck no anterior posterior cervical lymphadenopathy. Heart is regular rate rhythm. She was tachycardic previously. Lungs clear. Abdomen is soft nontender nondistended. Right perineum/gluteal cleft shows considerable induration and there is palpable subcutaneous air without crepitance. This is tender to touch. There is no necrotic skin. Results Pain Assessment Right Groin: Pain Description: Constant and Aching Pain Intensity: 8 Intake and Output 24 hour I&O: Intake & Output 11/20/21 11/20/21 11/21/21 15:59 23:59 07:59 Intake Total 2099 Balance 2099 Weight 84.3 kg Labs CBC & Chem 7: 11/21/21 03:15 11/21/21 03:15 Laboratory Results - last 72 hr 11/21/21 07:13: COVID-19 PCR Interp N/A 11/21/21 07:11: POC Glucose 333 11/21/21 05:11: POC Glucose 350, POC Glucose Comment Glu2: cleaned meter 11/21/21 03:55: Urine Color Yellow, Urine Appearance Clear, Urine pH 5.5, Ur Specific [place] 1.032 H, Urine Protein Negative, Urine Glucose (UA) >=1000 H, Urine Ketones 2+ H, Urine Occult Blood Negative, Urine Nitrite Negative, Urine Bilirubin Negative, Urine Urobilinogen Normal, Ur Leukocyte Esterase Negative, Urine HCG, Qual Negative 11/21/21 03:33: Lactic Acid 1.4 11/21/21 03:31: PT 11.0, INR 1.0, APTT 23.2 L 11/21/21 03:15: PHA Creatinine Clear 93.05, Sodium 129 L, Potassium 4.2, Chloride 93 L, Carbon Dioxide 22.9, BUN 13, Creatinine 0.81, Est GFR ( Amer) > 60, Est GFR (Non-Af Amer) > 60, Glucose 481 H, Calcium 9.2, Total Bilirubin 0.7, AST 14, ALT 13, Alkaline Phosphatase 83, Total Protein 6.1, Albumin 2.9 L, Globulin 3.2, Albumin/Globulin Ratio 0.9 11/21/21 03:15: Corrected WBC 16.8 H, Uncorrected WBC Count 16.8 H, RBC 4.46, Hgb 12.4, Hct 37.7, MCV 84.7, MCH 27.9, MCHC 32.9, RDW 13.0, Plt Count 291, MPV 8.7, Neut % (Auto) 83.9, Lymph % (Auto) 7.3, [place] % (Auto) 7.1, Eos % (Auto) 0.9, Baso % (Auto) 0.8, Neut # (Auto) 14.2 H, Lymph # (Auto) 1.2, [place] # (Auto) 1.2 H, Eos # (Auto) 0.1, Baso # (Auto) 0.1, Nucleated RBC % (auto) 0.0 A&P - General Surgery (1) Perineal abscess: Plan: Patient has perineal/gluteal cellulitis and abscess, potential for necrotizing fasciitis with the fever and tachycardia and subcutaneous air. 2 or 3 small needle pokes should not cause this very significant subcutaneous air in the tissue. I discussed this with her, she understands. Patient needs admission for IV antibiotics, even further more needs incision anddrainage and possible wide debridement of any necrotic tissue. I discussed withher and her partner who is at bedside. We discussed the procedure and the risksand potential complications. There will be a wound that will take healing time and wound care after discharge. They understand that. She could require futuredebridements or surgeries. They understand that. Plan is to proceed to surgeryimmediately. Code(s): L02.215 - Cutaneous abscess of perineum Status: Acute (2) Necrotizing fasciitis: Code(s): M72.6 - Necrotizing fasciitis Status: Acute Documented By: Juan Mark DO 11/21/21 0753 Signed By: <Electronically signed by DO Juan Mark> 11/21/21 0757 [facility] Work Phone: Consult note Author Juan Mark [facility] November 21, 2021 7:57am Note Date/Time November 21, 2021 7:57a m [facility] [address] [place] [address] General Surgery Consult Note Signed Patient: Bina Campos MR#: [id number] : 1975 Acct:[id number] Age/Sex: 46 / F Adm Date: 2 Loc: ER Room: Type: [facility] Attending Dr: Copies to: NO FAMILY PHYSICIAN DO Billy Cho DO~ History of Present Illness Date of consult: 11/21/2021 History of present illness: Patient has significant diabetes. She did notice that over the last week her sugars were getting worse. She thought she had a urinary tract infection and she was on Bactrim to treat that. Several days ago on her right perineum/perirectal/buttock she developed some pain and a little bit of infection. It started to get bigger and she thought she would see if she could pop it and she poked it with a pin several times. It got much much bigger and more painful. She started to feel sick. She vomited several times. She came to the emergency room and she had a fever of 101. She is never had significant soft tissue infections like this before. She does not have any shortness of breath or chest pain. Review of Systems Review of Systems All other systems reviewed & are negative unless noted below or in HPI PMFSH Vaccinated for COVID-19?: No Medical History Bladder mass delivery delivered X2 No pertinent past medical history Surgical History H/O total hysterectomy History of tonsillectomy and adenoidectomy Family History (Updated 06/01/21 @ 21:41 by Eliseo Sullivan MD) Other Hypertension Social History Smoking Status: Never smoker Substance Use Type: None Allergies & Medications Medications and Allergies Allergies ciprofloxacin [From Cipro] Allergy (Verified 11/21/21 02:46) Hives Home Medications albuterol 90 mcg/actuation aerosol inhaler 180 mcg INHALATION DAILY PRN 06/01/21[History Confirmed 11/21/21] escitalopram oxalate 10 mg tablet (Lexapro) 10 mg PO DAILY 06/01/21 [History Confirmed 11/21/21] metformin 1,000 mg tablet 1,000 mg PO BID 06/01/21 [History Confirmed 11/21/21] ondansetron 4 mg disintegrating tablet 4 mg PO Q6H PRN #24 tab 06/02/21 [Rx Confirmed 11/21/21] alcohol swabs 1 pad TOPICAL ACHS #100 ea 06/08/21 [Rx Confirmed 11/21/21] blood sugar diagnostic #100 ea 06/08/21 [Rx Confirmed 11/21/21] blood-glucose meter #1 ea 06/08/21 [Rx Confirmed 11/21/21] dextrose 40 % oral gel (Glutose-15) 0.6 g PO PRN PRN #37.5 g 06/08/21 [Rx Confirmed 11/21/21] lancets #100 ea 06/08/21 [Rx Confirmed 11/21/21] pen needle, diabetic 32 gauge x 5/32 (BD Ultra-Fine Symone Pen Needle) #100 ea 06/08/21 [Rx Confirmed 11/21/21] Exam Physical Exam Vital Signs: Temp Pulse Resp BP Pulse Ox 99.2 F H 90 20 147/76 H 95 11/21/21 07:06 11/21/21 07:40 11/21/21 06:30 11/21/21 06:30 11/21/21 06:30 Narrative: Patient is conversive pleasant not toxic in appearance. Head is atraumatic normocephalic. Eyes are without scleral icterus. Neck no anterior posterior cervical lymphadenopathy. Heart is regular rate rhythm. She was tachycardic previously. Lungs clear. Abdomen is soft nontender nondistended. Right perineum/gluteal cleft shows considerable induration and there is palpable subcutaneous air without crepitance. This is tender to touch. There is no necrotic skin. Results Pain Assessment Right Groin: Pain Description: Constant and Aching Pain Intensity: 8 Intake and Output 24 hour I&O: Intake & Output 11/20/21 11/20/21 11/21/21 15:59 23:59 07:59 Intake Total 2099 Balance 2099 Weight 84.3 kg Labs CBC & Chem 7: 11/21/21 03:15 11/21/21 03:15 Laboratory Results - last 72 hr 11/21/21 07:13: COVID-19 PCR Interp N/A 11/21/21 07:11: POC Glucose 333 11/21/21 05:11: POC Glucose 350, POC Glucose Comment Glu2: cleaned meter 11/21/21 03:55: Urine Color Yellow, Urine Appearance Clear, Urine pH 5.5, Ur Specific [place] 1.032 H, Urine Protein Negative, Urine Glucose (UA) >=1000 H, Urine Ketones 2+ H, Urine Occult Blood Negative, Urine Nitrite Negative, Urine Bilirubin Negative, Urine Urobilinogen Normal, Ur Leukocyte Esterase Negative, Urine HCG, Qual Negative 11/21/21 03:33: Lactic Acid 1.4 11/21/21 03:31: PT 11.0, INR 1.0, APTT 23.2 L 11/21/21 03:15: PHA Creatinine Clear 93.05, Sodium 129 L, Potassium 4.2, Chloride 93 L, Carbon Dioxide 22.9, BUN 13, Creatinine 0.81, Est GFR ( Amer) > 60, Est GFR (Non-Af Amer) > 60, Glucose 481 H, Calcium 9.2, Total Bilirubin 0.7, AST 14, ALT 13, Alkaline Phosphatase 83, Total Protein 6.1, Albumin 2.9 L, Globulin 3.2, Albumin/Globulin Ratio 0.9 11/21/21 03:15: Corrected WBC 16.8 H, Uncorrected WBC Count 16.8 H, RBC 4.46, Hgb 12.4, Hct 37.7, MCV 84.7, MCH 27.9, MCHC 32.9, RDW 13.0, Plt Count 291, MPV 8.7, Neut % (Auto) 83.9, Lymph % (Auto) 7.3, [place] % (Auto) 7.1, Eos % (Auto) 0.9, Baso % (Auto) 0.8, Neut # (Auto) 14.2 H, Lymph # (Auto) 1.2, [place] # (Auto) 1.2 H, Eos # (Auto) 0.1, Baso # (Auto) 0.1, Nucleated RBC % (auto) 0.0 A&P - General Surgery (1) Perineal abscess: Plan: Patient has perineal/gluteal cellulitis and abscess, potential for necrotizing fasciitis with the fever and tachycardia and subcutaneous air. 2 or 3 small needle pokes should not cause this very significant subcutaneous air in the tissue. I discussed this with her, she understands. Patient needs admission for IV antibiotics, even further more needs incision anddrainage and possible wide debridement of any necrotic tissue. I discussed withher and her partner who is at bedside. We discussed the procedure and the risksand potential complications. There will be a wound that will take healing time and wound care after discharge. They understand that. She could require futuredebridements or surgeries. They understand that. Plan is to proceed to surgeryimmediately. Code(s): L02.215 - Cutaneous abscess of perineum Status: Acute (2) Necrotizing fasciitis: Code(s): M72.6 - Necrotizing fasciitis Status: Acute Documented By: Juan Mark DO 11/21/21 0753 Signed By: <Electronically signed by DO Juan Mark> 11/21/21 0757 [facility] Work Phone: Evaluation + Plan note Future Appointments Appointment Date:05/18/2022 10:30:00 AM Scheduled Provider: Location:.LAB Appointment Type:Outpatient COVID Testing Future Scheduled Tests Laboratory* COVID-19 ([facility] 05/18/22 Radiology* NM Gastric Emptying Study 05/05/22 [facility] Evaluation note* Diagnosis Onset Date Resolution Status Necrotizing fasciitis acute Perineal abscess acute Perirectal cellulitis acute Traumatic subcutaneous emphysema, initial encounter acute [facility] Work Phone: Evaluation note* Diagnosis Onset Date Resolution Status Diabetes mellitus type 2 in nonobese acute Hyperglycemia acute Hypertension acute Nausea and vomiting acute Necrotizing fasciitis acute Perineal abscess acute Perirectal cellulitis acute Traumatic subcutaneous emphysema, initial encounter acute [facility] Work Phone: Evaluation noteNo assessment information available [facility] Work Phone: evaluation note* Diagnosis Uncontrolled type 2 diabetes mellitus with hyperglycemia (CMS/HCC)- Primary Hyperlipidemia LDL goal <70 (CMS/HCC) Other and unspecified hyperlipidemia Medication monitoring encounter Encounter for therapeutic drug monitoring Mild major depression (HCC) ([facility]) Major depressive disorder, single episode, mild Anxiety Anxiety state, unspecified Statin myopathy Toxic myopathy S/P hysterectomy Acquired absence of both cervix and uterus [facility] Diagnosis Uncontrolled type 2 diabetes mellitus with hyperglycemia (CMS/HCC)- Primary Hyperlipidemia LDL goal <70 (CMS/HCC) Other and unspecified hyperlipidemia Hypokalemia Hypopotassemia S/P hysterectomy Acquired absence of both cervix and uterus Anxiety Anxiety state, unspecified Chronic GERD Uncontrolled type 2 diabetes mellitus with hyperglycemia (CMS/HCC)- Primary Hyperlipidemia LDL goal <70 (CMS/HCC) Other and unspecified hyperlipidemia Dental caries Unspecified dental caries Mild major depression (HCC) (CMS/HCC) Major depressive disorder, single episode, mild S/P hysterectomy Acquired absence of both cervix and uterus Breast cancer screening by mammogram Uncontrolled type 2 diabetes mellitus with hyperglycemia (CMS/HCC)- Primary Hyperlipidemia LDL goal <70 ([facility]) Other and unspecified hyperlipidemia Medication monitoring encounter Encounter for therapeutic drug monitoring Mild major depression (HCC) ([facility]) Major depressive disorder, single episode, mild Anxiety Anxiety state, unspecified Statin myopathy Toxic myopathy S/P hysterectomy Acquired absence of both cervix and uterus Encounter for preventative adult health care examination- Primary Uncontrolled type 2 diabetes mellitus with hyperglycemia ([facility]) Statin myopathy Toxic myopathy Hyperlipidemia LDL goal <70 ([facility]) Other and unspecified hyperlipidemia Moderate major depression ([facility]) Major depressive disorder, single episode, moderate S/P hysterectomy Acquired absence of both cervix and uterus Moderate major depression ([facility])- Primary Major depressive disorder, single episode, moderate Uncontrolled type 2 diabetes mellitus with hyperglycemia ([facility]) Chronic GERD Statin myopathy Toxic myopathy Hyperlipidemia LDL goal <70 ([facility]) Other and unspecified hyperlipidemia Type 2 diabetes mellitus with other specified complication ([facility]) documented in this encounter [facility]* Diagnosis Uncontrolled type 2 diabetes mellitus with hyperglycemia ([facility])- Primary Hyperlipidemia LDL goal <70 ([facility]) Other and unspecified hyperlipidemia Hypokalemia Hypopotassemia S/P hysterectomy Acquired absence of both cervix and uterus Anxiety Anxiety state, unspecified Chronic GERD Uncontrolled type 2 diabetes mellitus with hyperglycemia ([facility])- Primary Hyperlipidemia LDL goal <70 ([facility]) Other and unspecified hyperlipidemia Dental caries Unspecified dental caries Mild major depression (HCC) ([facility]) Major depressive disorder, single episode, mild S/P hysterectomy Acquired absence of both cervix and uterus Breast cancer screening by mammogram Uncontrolled type 2 diabetes mellitus with hyperglycemia ([facility])- Primary Hyperlipidemia LDL goal <70 ([facility]) Other and unspecified hyperlipidemia Medication monitoring encounter Encounter for therapeutic drug monitoring Mild major depression (HCC) ([facility]) Major depressive disorder, single episode, mild Anxiety Anxiety state, unspecified Statin myopathy Toxic myopathy S/P hysterectomy Acquired absence of both cervix and uterus Encounter for preventative adult health care examination- Primary Uncontrolled type 2 diabetes mellitus with hyperglycemia ([facility]) Statin myopathy Toxic myopathy Hyperlipidemia LDL goal <70 ([facility]) Other and unspecified hyperlipidemia Moderate major depression ([facility]) Major depressive disorder, single episode, moderate S/P hysterectomy Acquired absence of both cervix and uterus Moderate major depression ([facility])- Primary Major depressive disorder, single episode, moderate Uncontrolled type 2 diabetes mellitus with hyperglycemia (CMS/HCC) Chronic GERD Statin myopathy Toxic myopathy Hyperlipidemia LDL goal <70 (CMS/HCC) Other and unspecified hyperlipidemia Type 2 diabetes mellitus with other specified complication Uncontrolled type 2 diabetes mellitus with hyperglycemia ([facility]/HCC)- Primary Hypertension, essential (CMS/HCC) Unspecified essential hypertension Hyperlipidemia LDL goal <70 (CMS/HCC) Other and unspecified hyperlipidemia Nausea Nausea alone Vomiting, unspecified vomiting type, unspecified whether nausea present Statin myopathy Toxic myopathy Moderate major depression ([facility]) Major depressive disorder, single episode, moderate S/P hysterectomy Acquired absence of both cervix and uterus [facility] Narrative No data available for this [facility] Additional Instructions Packing changes must be done daily, go to infusion center for daily packing changes. Follow-up in the office of Dr. Mark at the end of the week or early next week. Contact the office of Dr. Mark for an appointment, call on Tuesday. Take antibiotics as prescribed until finishing. If worsening of swelling or pain or fevers or chills go to emergency department or contact the office Your glucose was noted to be significantly elevated. Your hemoglobin A1c was 13.6. We recommend to start you on insulin therapy. Please record your blood sugars before each meal and follow-up with your family care doctor. Well-controlled blood sugars will help to heal infection as well. Always carry glucose tabs and if you not feeling well first check your blood sugars to make sure its not low. Please read instructions about low blood sugars.[facility] [facility] Work Phone: Hospital Discharge instructions Additional Instructions Push fluids Rest Phenergan suppositories if needed for nausea vomiting Phenergan oral tabs if needed for nausea vomiting Call GI to see about a earlier appointment Clear liquid diet for the next 24 hours and advance as tolerated Return here if any problems persist [facility] Hospital Discharge instructions No data available for this section [facility] Discharge instructions Additional Instructions no soaking or swimming Sutures removed in 7 to 10 days Tylenol or Motrin if needed for pain observe signs of infection redness, swelling, purulent drainage follow up follow-up immediately Monitor your blood [facility] Hospital Discharge instructions Additional Instructions Please keep an eye on your blood sugar. Now that the steroids have stopped it should come back to normal but I want to make sure that it does not keep getting so high. I am going to prescribe both meclizine and Valium for your vertigo. I would try meclizine first and then use Valium if the meclizine does not work. Your vertigo does seem like positional vertigo. We did not do the testing tonight because you did not want to have vertigo provoked, but you may need more testing. You may need referral for Aviva maneuvers. We talked about this tonight. Please follow- up with your doctor. I will give you Tuesday off just in case. If you do feel better on Tuesday it is fine to go to work. Obviously, you should not drive or go to work if you have to take Valium for your symptoms. Your blood pressure was high when you came in. It did come down. Hopefully it was just because you are not feeling well. I do want you to have your blood pressure rechecked with your primary care doctor in the near future. If you do have high blood pressure, we are more aggressive in treating it if you have diabetes as well.[facility] Work Phone: Progress note No data available for this section [facility] Summary Purpose Family History Relationship Condition Age at Onset Recorded Date/T moises Not Specified Hypertension Unknown Advance Directives Advance Directive Response Recorded Date/ Time Advance Directives No June 03, 2021 7:49pm Latest Code Status on File Code Status Date Activated Date Inactivated Comments Full Code 02/01/2017 3:55 AM 02/02/2017 4:25 PM Full Code 05/18/2014 3:20 AM 05/18/2014 6:05 PM Full Code 05/17/2014 6:39 PM 05/18/2014 3:20 AM Latest Code Status on File Code Status Date Activated Date Inactivated Comments Full Code 02/01/2017 3:55 AM 02/02/2017 4:25 PM Code Status History Code Status Date Activated Date Inactivated Comments Full Code 05/18/2014 3:20 AM 05/18/2014 6:05 PM Full Code 05/17/2014 6:39 PM 05/18/2014 3:20 AM Date Activated Date Inactivated Comments 02/01/2017 3:55 AM 02/02/2017 4:25 PM Date Activated Date Inactivated Comments 05/18/2014 3:20 AM 05/18/2014 6:05 PM Date Activated Date Inactivated Comments 05/17/2014 6:39 PM 05/18/2014 3:20 AM Advance Directive Response Recorded Date/ Time Advance Directives No June 03, 2021 6:49pm Chief Complaint and Reason for Visit Chief Complaint Abscess Reason for Visit Necrotizing fasciiti s Perineal abscess Perirectal cellulitis Traumatic subcutaneous emphysema, initial encounter Chief Complaint Abscess Reason for Visit Diabetes mellitus ty pe 2 in nonobese Hyperglycemia Hypertension Nausea and vomiting Necrotizing fasciitis Perineal abscess Perirectal cellulitis Traumatic subcutaneous emphysema, initial encounter Chief Complaint rt foot pain Chief Complaint rt foot pain L97.512 passing out, vomiting Chief Complaint rt foot pain L97.512 passing out, vomiting N/V Chief Complaint labs L [place] Chief Complaint E11.65 Z51.81 E78.5 vomiting, fever, SOB Chief Complaint Admit Date Headache July 01, 2024 12 :33am Additional Source Comments INFORMATION SOURCE (unrecogn ized section and content) DATE CREATED AUTHOR 06/24/2019 [facility] DATE CREATED AUTHOR AUTHOR'S ORGANIZ ATION 08/21/2021 [facility] DATE CREATED AUTHOR AUTHOR'S ORGANIZ ATION 12/02/2021 [facility] Specialist DATE CREATED AUTHOR AUTHOR'S ORGANIZ ATION 08/17/2022 [facility] DATE CREATED AUTHOR AUTHOR'S ORGANIZ ATION 07/16/2024 [facility] DATE CREATED AUTHOR AUTHOR'S ORGANIZ ATION 11/04/2024 [facility] dical Specialists EPIC Care Teams (unrecognized sec tion and content) Team Status: Active Member Role Status Dates PHYSICIAN NO FAMILY Primary Care Provider Active Billy Levine DO Emergency Provider Active Luis Alvarez MD Attending Provider Active Team Status: Active Member Role Status Dates PHYSICIAN NO FAMILY Primary Care Provider Active Team Status: Inactive Member Role Status Dates PHYSICIAN NO FAMILY Primary Care Provider Active Billy Levine DO Emergency Provider Active Luis Alvarez MD Admit Provider Active Juan Laffay , DO Other Provider Active Priti Bhandari MD Attending Provider Active Dinkey Operator Slag Relationship Specialty Start Date End Date [facility] Obdulia Depmsey, BUSINESS DEVELOPMENT AGENT-FINANCIAL WELLNESS COACH [address] [place] [place] [address] PCP - General Family Medicine 06/24/19 Team Status: Inactive Member Role Status Dates NON STAFF Primary Care Provider Active Harika Whitaker DPM Attending Provider Active Team Status: Inactive Member Role Status Dates NON STAFF Primary Care Provider Active Leyla Savage , BUSINESS DEVELOPMENT AGENT Emergency Provider Active Team Status: Active Member Role Status Dates NON STAFF Primary Care Provider Active Team Status: Inactive Member Role Status Dates NON STAFF Primary Care Provider Active Yvonne Ji , DO Emergency Provider Active Team Status: Inactive Member Role Status Dates NON STAFF Primary Care Provider Active Mikey Phillips DO Emergency Provider Active Dinkey Operator Slag Relationship Specialty Start Date End Date Obdulia Estrada, BUSINESS DEVELOPMENT AGENT-FINANCIAL WELLNESS COACH [address] [place] [address] PCP - General Family Medicine 06/24/19 Team Status: Active Member Role Status Dates Yodit Corea , Primary Care Provider Active Team Status: Inactive Member Role Status Dates Yodit Corea , Attending Provider Active NON STAFF Primary Care Provider Active Team Status: Inactive Member Role Status Dates Leyla Savage , BUSINESS DEVELOPMENT AGENT Emergency Provider Active Yodit Corea DO Primary Care Provider Active Dinkey Operator Slag Relationship Specialty Start Date End Date Yodit Corea DO [address] [place] [address] PCP - General Internal Medicine 12/15/22 Yodit Corea DO [address] [place] [address] PCP - [facility] 06/27/23 Team Status: Inactive Member Role Status Dates Yodit Corea DO Attending Provider Active Start: November 25, 2023 End: November 25, 2023 Team Status: Inactive Member Role Status Dates PHYSICIAN NO FAMILY Primary Care Provider Active Start: December 16, 2023 End: December 17, 2023 Yvonne Ji DO Emergency Provider Active St art: December 16, 2023 End: December 17, 2023 Dinkey Operator Slag Relationship Specialty Start Date End Date Obdulia Estrada, BUSINESS DEVELOPMENT AGENT-FINANCIAL WELLNESS COACH [address] [place] [address] PCP - General Family Medicine 06/24/19 Dinkey Operator Slag Relationship Specialty Start Date End Date Obdulia Estrada, BUSINESS DEVELOPMENT AGENT-FINANCIAL WELLNESS COACH [address] [place] [place] [address] PCP - General Family Medicine 06/24/19 Team Status: Inactive Member Role Status Dates Yodit Corea DO Primary Care Provider Active Start: July 01, 2024 End: July 01, 2024 Yong Gagnon Jr, MD Emergency Provider Active Start: July 01, 2024 End: July 01, 2024 Nasrin Jackson DO RES Active St art: July 01, 2024 End: July 01, 2024 Dinkey Operator Slag Relationship Specialty Start Date End Date Yodit Corea DO [address] [place] [address] PCP - General Internal Medicine 12/15/22 Dinkey Operator Slag Relationship Specialty Start Date End Date Yodit Corea DO [address] [place] [address] PCP - General Internal Medicine 12/15/22 Goals (unrecognized section and content) Goals may be documented in a n alternate sectionGoals may be documented in an alternate sectionGoals may be documented in an alternate section No data available for this sectionGoals may be documented in an alternate section No data available for this section No data available for this sectionGoals may be documented in an alternate sectionGoals may be documented in an alternate sectionGoals may be documented in an alternate sectionGoals may be documented in an alternate section Reason for Visit (unrecogniz ed section and content) Reason Comments Routine 4 Mo Follow-up Reason Comments Routine Follow Up Reason Comments Routine 4 Mo Follow Up FOR RECORDS PERTAINING TO PATIENTS WHO ARE OR HAVE BEEN ENROLLED IN A CHEMICAL DEPENDENCY/SUBSTANCEABUSE PROGRAM, SOME INFORMATION MAY BE OMITTED. This clinical summary was aggregated from multiple sources. Caution should be exercised in using it in the provision of clinical care. This summary normalizes information from multiple sources, and as a consequence, information in this document may materially change the coding, format and clinical context of patient data. In addition, data may be omitted in some cases. CLINICAL DECISIONS SHOULD BE BASED ON THE PRIMARY CLINICAL RECORDS. [employer] provides no warranty or guarantee of the accuracy or completeness of information in this document.
--- NOTE | 2025-02-10 18:47 | ED.GENADUL1 ---
HPI HPI - General Adult General Chief complaint: Upper Respiratory Infection Stated complaint: SORE THROAT Time Seen by Provider: 02/10/25 18:10 Source: patient Mode of arrival: walk-in History of Present Illness HPI narrative: Patient is a 49-year-old female with history of DM. Presents to the ER with concerns of sore throat and throat pain. Patient states symptoms started 1-1/2 weeks ago. She denies any fevers states she initially had a upper respiratory infection and thought she was just having sinus drainage. Patient states shortly after this he she lost her voice and thought it was just part of the viral process. Now she is getting worsening pain involving the anterior cervical and submandibular chains in her throat. She reports pain with swallowing, she was able to tolerate some pudding earlier and has been able to maintain her oral medication. She denies any dental pain but does have pain with chewing. Patient was seen at the urgent care and they prescribed Augmentin because they told her her throat looked irritated but could not see back there to get a swab. Patient denies the sensation of tongue swelling. She notes her blood sugars have been running slightly lower than normal as she has been trying to monitor her insulin use with p.o. intake. She denies any known ill exposures. Onset (ago): week(s) (1.5) Relieving factors: Reports rest Exacerbating factors: Reports eating Related Data Home Medications ?Medication ?Instructions ?Recorded ?Confirmed amoxicillin 875 mg-potassium 1 tab PO BID 02/10/25 02/10/25 clavulanate 125 mg tablet escitalopram oxalate 10 mg tablet 10 mg PO DAILY 02/10/25 02/10/25 Allergies Allergy/AdvReac Type Severity Reaction Status Date / Time ciprofloxacin (From Cipro) Allergy Hives Verified 12/16/23 23:19 Opioid HPI Opioid Management Most Recent Opioid Data: Last Pain Scale 7 Today, 19:05 Last MAR Pain Assessment Today, 19:04 Review of Systems ROS Constitutional Reports: fatigue; Denies: fever or chills Eyes Denies: change in vision Ears, nose, mouth, and throat Reports: throat pain, neck pain, throat swelling, difficulty swallowing and hoarseness; Denies: swelling of lips/tongue Cardiovascular Denies: chest pain or palpitations Respiratory Denies: shortness of breath, cough or wheezing Gastrointestinal Denies: abdominal pain, nausea or vomiting Genitourinary Denies: painful urination or urinary frequency Musculoskeletal Denies: back pain or neck pain Integumentary/Breast Denies: rash, itching, redness or skin pain Neurological Denies: headache or numbness in extremities Psychiatric Denies: anxiety or mood swings Endocrine Denies: excessive urination Hematologic/Lymphatic Denies: easy bruising Allergic/Immunologic Reports: throat swelling; Denies: tongue swelling or facial swelling PFSH PFSH Social History Little interest or pleasure in doing things: not at all Feeling down, depressed, or hopeless: not at all Exam Narrative Exam Narrative: Nurses notes and vital signs reviewed and patient is not hypoxic. General: The patient appears well and in no apparent distress. Patient is resting comfortably on cart. Skin: Warm, dry, no pallor noted. No evidence of rash Head: Normocephalic, atraumatic Neck: Supple, trachea mid-line, to the anterior neck, along the bilateral anterior cervical chains minimal lymphadenopathy palpable patient does have submental tenderness. There is no tenderness to the posterior neck or cervical spine. Negative meningeal signs. Eye: Pupils are equal, round and reactive to light, EOMI Ears, Nose, Mouth, and Throat: TM are clear, normal light reflex, oral mucosa is moist, posterior oropharynx with mild erythema slight cobblestone appearance of posterior pharynx. tonsils surgically absent., uvula is mid-line, no TMJ tenderness and no pain with direct palpation of the dentition but she does have tenderness in the floor of her mouth, no deviation of the tongue. Her voice sounds more of a laryngitic voice change scratchy and she is speaking readily at the bedside despite pain symptoms. Cardiovascular: Regular Rate and Rhythm. Respiratory: Patient is in no distress, no accessory muscle use, lungs are clear to auscultation, no wheezing, rales or rhonchi. Chest Wall: no tenderness Back: non-tender, no CVA tenderness Musculoskeletal: normal ROM, no tenderness, no swelling, no lymph swelling or tenderness in axilla or supra clavicular region. GI: Normal bowel sounds, no tenderness to palpation, no masses appreciated. No rebound, guarding, or rigidity noted. Neurological: A&O x4 Psychiatric: Cooperative Constitutional Vital Signs, click to edit/add: Last Vital Signs Temp 98.0 F 02/10/25 18:07 Pulse 72 02/10/25 21:04 Resp 18 08/17/25 21:04 BP 171/72 H 02/10/25 21:04 Pulse Ox 100 02/10/25 21:04 O2 Del Method Room Air 02/10/25 21:04 Course Vital Signs Vital signs: Vital Signs Temperature 98.0 F 02/10/25 18:07 Pulse Rate 102 H 02/10/25 18:07 Respiratory Rate 18 02/10/25 18:07 Blood Pressure 183/92 H 02/10/25 18:07 Pulse Oximetry 100 02/10/25 18:07 Oxygen Delivery Method Room Air 02/10/25 18:07 Temperature 98.0 F 02/10/25 18:07 Pulse Rate 72 02/10/25 21:04 Respiratory Rate 18 02/10/25 21:04 Blood Pressure 171/72 H 02/10/25 21:04 Pulse Oximetry 100 02/10/25 21:04 Oxygen Delivery Method Room Air 02/10/25 21:04 Medical Decision Making MDM Narrative Medical decision making narrative: Patient presents with severe throat pain notes pain with swallowing that makes it difficult to eat and chew. She denies difficulty breathing. She admits symptoms have been progressing over the last week and a half. Patient will be given Toradol IV for pain as she can tolerate Motrin. She is also going to be offered liquid Tylenol. Patient states she cannot take any narcotics because of prior side effects and states steroids make her sugars go into the 900's . Patient resting comfortably after IV fluid bolus and liquid Tylenol and IV Toradol. Her blood pressure also slightly improved with better pain control but the patient declines anything stronger for pain. Chest x-ray was clear no evidence of mediastinal widening or acute process. Patient's CT of the neck with IV contrast does not show any abscess or mass. Reactive adenopathy noted. Lab work reviewed. Recommend patient continue with Augmentin prescribed from urgent care and take Tylenol and Motrin. Given her symptoms follow-up to her PCP, dentist and nose and throat specialist Is strongly advised for further evaluation. Should her symptoms worsen or new symptoms develop she may return to the ER for reevaluation. The patient is to followup with primary care physician in next 2-3 days or to return to the emergency department should any of the signs or symptoms worsen or new symptoms develop. Patient had questions answered. The patient agrees with the following Diagnosis and Treatment plan and the patient will be discharged home. Differential Diagnosis Differential Diagnosis: Soft tissue mass, cervical adenopathy, strep throat. Lab Data Labs: Lab Results 02/10/25 02/10/25 Range/Units 18:35 18:50 WBC 12.5 H (4.0-11.0) 10^3/uL RBC 4.64 (4.20-5.40) 10^6/uL Hgb 13.0 (12.0-16.0) g/dL Hct 38.2 (36.0-48.0) % MCV 82.3 (81.0-99.0) fL MCH 28.0 (26.7-34.0) pg MCHC 34.0 (29.9-35.2) g/dL RDW 12.8 (11.0-15.0) % Plt Count 387 (150-450) 10^3/uL MPV 9.7 (9.5-13.5) fL Neut % (Auto) 72.1 (43.0-75.0) % Lymph % (Auto) 16.8 L (20.5-60.0) % Gilliam % (Auto) 8.5 (1.7-12.0) % Eos % (Auto) 1.5 (0.9-7.0) % Baso % (Auto) 0.6 (0.2-2.0) % Neut # (Auto) 9.1 H (1.4-6.5) 10^3/uL Lymph # (Auto) 2.1 (1.2-3.8) 10^3/uL Gilliam # (Auto) 1.1 H (0.3-0.8) 10^3/uL Eos # (Auto) 0.2 (0.0-0.7) 10^3/uL Baso # (Auto) 0.1 (0.0-0.1) 10^3/uL Abs Immat Gran (auto) 0.06 H (0.00-0.03) 10^3/uL Imm/Tot Granulo (auto) 0.5 (0.0-0.5) % Sodium 138 (136-145) mmol/L Potassium 3.4 L (3.5-5.1) mmol/L Chloride 102 (98-107) mmol/L Carbon Dioxide 27.0 (21.0-32.0) mmol/L Anion Gap 12.4 BUN 17.0 (7.0-18.0) mg/dL Creatinine 0.95 (0.55-1.02) mg/dL Est GFR ( Amer) >60 (>=60 mL/min/1.73m^2) Est GFR (Non-Af Amer) >60 (>=60 mL/min/1.73m^2) BUN/Creatinine Ratio 17.9 Glucose 114 H (74-106) mg/dL Calcium 9.1 (8.5-10.1) mg/dL Total Bilirubin 0.6 (0.2-1.0) mg/dL AST 22 (15-37) U/L ALT 44 (14-59) U/L Alkaline Phosphatase 177 H (46-116) U/L Total Protein 7.6 (6.4-8.2) g/dL Albumin 3.4 (3.4-5.0) g/dL Globulin 4.2 g/dL Albumin/Globulin Ratio 0.8 Monoscreen Negative (NEGATIVE) Streptococcus Screen Negative Imaging Data Chest x-ray: Radiologist's impression: Reviewed radiologist report, I spoke to the radiologist personally at 835pm. He advised that this was a normal chest x-ray no mediastinal widening no infiltrate. CT NECK soft tissue with IV contrast.: Radiologist's impression: Radiologist impression no parapharyngeal or other abscess or mass. Widely patent airway without evidence of compromise. Epiglottis is not enlarged lung apices are clear. 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 Submandibular glands and parotid glands appear unremarkable. Prevertebral soft tissues are normal. Airway is widely patent. Multiple scattered cervical lymph nodes are presumably reactive in nature. No pharyngeal or other mass no parapharyngeal or other abscess. Discharge Plan Discharge Chief Complaint: Upper Respiratory Infection Clinical Impression: Pharyngitis, Anterior cervical adenopathy Patient Disposition: Home, Self-Care Time of Disposition Decision: 21:19 Condition: Good Prescriptions / Home Meds: No Action amoxicillin-pot clavulanate 875-125 mg tablet 1 tab PO BID escitalopram oxalate 10 mg tablet 10 mg PO DAILY Print Language: Irish Instructions: Pharyngitis (ED) Referrals: Haylee Mccullough MD [Physician, Ear, Nose, Throat] - As needed RAINE CHAN [Primary Care Provider, Internal Medicine] - As soon as possible
[2025-02-10 18:56] LABS: Hematocrit 38.2 % (36.0-48.0); Hemoglobin 13.0 g/dL (12.0-16.0); Immature Granulocytes Abs Auto 0.06 10^3/uL (0.00-0.03); Immature Granulocytes Pct Auto 0.5 % (0.0-0.5); Lymphocytes Absolute Auto 2.1 10^3/uL (1.2-3.8); Mean Corpuscular HGB Conc 34.0 g/dL (29.9-35.2); Mean Corpuscular Hemoglobin 28.0 pg (26.7-34.0); Mean Corpuscular Volume 82.3 fL (81.0-99.0); Platelet Count 387 10^3/uL (150-450); Red Blood Count 4.64 10^6/uL (4.20-5.40); White Blood Count 12.5 10^3/uL (4.0-11.0)
[2025-02-10] MEDS: ACETAMINOPHEN 160 MG/5 ML ORAL.SUSP 480 MG PO (19:04)
[2025-02-10] MEDS: 0.9 % SODIUM CHLORIDE 1,000 ML 999 ML IV (19:05)
[2025-02-10] MEDS: KETOROLAC TROMETHAMINE 30 MG/ML VIAL IVP (19:05)
[2025-02-10 19:11] LABS: Mono Screen NEGATIVE (NEGATIVE)
[2025-02-10 19:16] LABS: Alanine Aminotransferase 44 U/L (14-59); Albumin Globulin Ratio 0.8; Albumin Level 3.4 g/dL (3.4-5.0); Alkaline Phosphatase 177 U/L (46-116); Anion Gap 12.4; Aspartate Amino Transferase 22 U/L (15-37); Blood Urea Nitrogen 17.0 mg/dL (7.0-18.0); Calcium 9.1 mg/dL (8.5-10.1); Carbon Dioxide 27.0 mmol/L (21.0-32.0); Chloride 102 mmol/L (98-107); Estimated GFR (African America >60 (>=60 mL/min/1.73m^2); Estimated GFR (Non-African Ame >60 (>=60 mL/min/1.73m^2); Globulin 4.2 g/dL; Glucose 114 mg/dL (74-106); Potassium 3.4 mmol/L (3.5-5.1); Sodium 138 mmol/L (136-145); Total Protein 7.6 g/dL (6.4-8.2)
[2025-02-10 21:04] VITALS: BP 171/72; PULSE 72; O2SAT 100
== END 2025-02-10 21:23 | disposition home or self-care (01) ==
PROVIDERS: Personal Emergency Response Attendant; Emergency Provider Emergency Medicine; PCP Internal Medicine
DX: J02.9 Acute pharyngitis, unspecified (principal); R59.0 Localized enlarged lymph nodes
CPT/HCPCS: 36415; 70491; 71046; 80053; 85025; 86308; 87070; 87880; 96374; 99285; J1885; Q9967